=== PATIENT | female | born 1955 | race Caucasian/White ===

== ENCOUNTER 2019-11-23 06:44 | Outpatient (CLI) | payer MEDICARE, MEDICAID, SELFPAY ==
[2019-11-23 07:36] LABS: Basophils Absolute Auto 0.1 K/mm3 (0.0-0.1); Basophils Percent Auto 1.1 % (0.2-1.2); Eosinophils Absolute Auto 0.4 K/mm3 (0-0.3); Eosinophils Percent Auto 5.6 % (0-4.4); Hematocrit 39.3 % (37.0-47.0); Immature Granulocyte Absolute 0.01 K/mm3 (0.00-0.031); Immature Granulocyte Percent A 0.2 % (0-0.5); Lymphocytes Absolute Auto 1.78 K/mm3 (0.9-3.2); Lymphocytes Percent Auto 27.5 % (18.3-44.2); Mean Corpuscular HGB Conc 33.1 g/dl (32-36); Mean Corpuscular Volume 87.7 fl (80-100); Mean Platelet Volume 10.3 fl (7.4-10.4); Monocytes Absolute Auto 0.5 K/mm3 (0.1-0.6); Monocytes Percent Auto 8.3 % (2.6-8.5); Neutrophils Absolute Auto 3.7 K/mm3 (1.3-6.7); Neutrophils Percent Auto 57.3 % (45.5-73.1); Platelet Count Result 215 k/mm3 (150-375); Red Blood Count 4.48 M/mm3 (4.2-5.4); Red Cell Distribution Width 12.9 % (11.5-14.5); White Blood Count 6.5 K/mm3 (4.5-10.0)
[2019-11-23 07:47] LABS: Alanine Aminotransferase 14 U/L (4-35); Albumin Level 4.1 g/dL (3.5-5.1); Alkaline Phosphatase 56 U/L (38-126); Anion Gap 9.7 mmol/L (7-16); Aspartate Amino Transferase 19 U/L (14-36); Bilirubin,Total 0.5 mg/dL (0.2-1.3); Blood Urea Nitrogen 16 mg/dL (7-17); Carbon Dioxide 28 mmol/L (22-30); Chloride 104 mmol/L (98-107); Cholesterol 182 mg/dL (0-200); Estimated Glomerular Filt Rate > 60; Glucose 138 mg/dL (65-105); HDL Direct 55 mg/dL; Potassium 3.7 mmol/L (3.4-5.0); Sodium 138 mmol/L (137-145); Triglycerides 134 mg/dL (<150)
[2019-11-23 07:58] LABS: LDL Cholesterol Direct 90 mg/dL
[2019-11-23 08:35] LABS: Vitamin D 25 Hydroxy 56.6 ng/mL
[2019-11-23 08:36] LABS: Creatinine Urine 226.8 mg/dL
[2019-11-23 08:40] LABS: MALB Creatinine Ratio 8.2 mg/g (0-30); Microalbumin Urine Random 18.5 mg/L (0-16.7)
[2019-11-23 12:03] LABS: Hemoglobin A1C 6.6 % (<5.7)
[2019-11-23 13:43] LABS: Folic Acid > 20.0 ng/mL (2.76->20)
== END 2019-11-23 06:45 | disposition home or self-care (01) ==
PROVIDERS: PCP Internal Medicine; Visit Provider Internal Medicine
DX: R53.83 Other fatigue (principal); E55.9 Vitamin D deficiency, unspecified; E11.9 Type 2 diabetes mellitus without complications; I10 Essential (primary) hypertension
CPT/HCPCS: 36415; 80053; 80061; 82043; 82306; 82607; 82746; 83036; 84443; 85025

== ENCOUNTER 2020-09-23 09:01 | Outpatient (CLI) | payer MEDICARE, BC, SELFPAY ==
--- NOTE | ~2020-09-23 | MM_ITS ---
EXAMINATION: MM screening [facility] BI w magda HISTORY: Screening mammogram TECHNIQUE: Craniocaudal and mediolateral oblique 3-D tomosynthesis images were obtained and synthetic 2-D images were generated. CAD analysis was submitted and interpreted. COMPARISON: 03/12/2019, 02/27/2018, bilateral digital screening mammogram examinations BREAST PARENCHYMAL COMPOSITION: The breasts are almost entirely fatty. FINDINGS: Stable benign-appearing small circumscribed low-density opacity in the lower outer left carlos ast, not significantly changed since 03/12/2019. There is no evidence of suspicious mass, calcificati on, or architectural distortion to suggest malignancy in either breast. There has been no suspicious interval change. IMPRESSION: 1. No mammographic evidence of malignancy. 2. Recommend routine screening mammography in one year. BI-RADS Category 2: Benign finding(s). Reviewed, dictated and finalized at location A.
== END 2020-09-23 09:02 | disposition home or self-care (01) ==
PROVIDERS: PCP Internal Medicine; Visit Provider Obstetrics & Gynecology
DX: Z12.31 Encounter for screening mammogram for malignant neoplasm of breast (principal)
CPT/HCPCS: 77063; 77067

== ENCOUNTER 2020-10-13 08:53 | Outpatient (CLI) | payer MEDICARE, MEDICAID, SELFPAY | END 2020-10-13 08:54 | disposition home or self-care (01) | LOC: ANHAUDIO 08:54 | PROVIDERS: PCP Internal Medicine; Visit Provider Otolaryngology | DX: H72.92 Unspecified perforation of tympanic membrane, left ear (principal); H91.92 Unspecified hearing loss, left ear | CPT/HCPCS: 92557; 92567 ==

== ENCOUNTER 2021-04-27 06:42 | Outpatient (CLI) | payer MEDICARE, MEDICAID, SELFPAY ==
[2021-04-27 07:33] LABS: Alanine Aminotransferase 22 U/L (4-35); Albumin Level 4.3 g/dL (3.5-5.1); Alkaline Phosphatase 69 U/L (38-126); Anion Gap 7 mmol/L (8-16); Aspartate Amino Transferase 26 U/L (14-36); Bilirubin,Total 0.5 mg/dL (0.2-1.3); Blood Urea Nitrogen 21 mg/dL (7-17); Calcium 9.4 mg/dL (8.4-10.2); Carbon Dioxide 29 mmol/L (22-30); Chloride 105 mmol/L (98-107); Cholesterol 224 mg/dL (0-200); Estimated Glomerular Filt Rate > 60; Glucose 154 mg/dL (65-110); HDL Direct 70 mg/dL; Potassium 4.4 mmol/L (3.4-5.0); Sodium 141 mmol/L (137-145); Triglycerides 129 mg/dL (<150)
[2021-04-27 07:34] LABS: Hemoglobin A1C 7.4 % (<5.7)
[2021-04-27 07:44] LABS: LDL Cholesterol Direct 110 mg/dL
[2021-04-27 07:58] LABS: Basophils Absolute Auto 0.1 K/mm3 (0.0-0.1); Basophils Percent Auto 0.8 % (0.2-1.2); Eosinophils Absolute Auto 0.4 K/mm3 (0-0.3); Hematocrit 45.3 % (37.0-47.0); Hemoglobin 14.7 g/dL (12.0-15.0); Immature Granulocyte Absolute 0.03 K/mm3 (0.00-0.031); Immature Granulocyte Percent A 0.3 % (0-0.5); Lymphocytes Absolute Auto 1.79 K/mm3 (0.9-3.2); Lymphocytes Percent Auto 19.8 % (18.3-44.2); Mean Corpuscular HGB Conc 32.5 g/dl (32-36); Mean Corpuscular Hemoglobin 28.6 pg (26-34); Mean Corpuscular Volume 88.1 fl (80-100); Mean Platelet Volume 10.6 fl (7.4-10.4); Monocytes Absolute Auto 0.9 K/mm3 (0.1-0.6); Monocytes Percent Auto 9.4 % (2.6-8.5); Neutrophils Absolute Auto 5.9 K/mm3 (1.3-6.7); Neutrophils Percent Auto 65.7 % (45.5-73.1); Platelet Count Result 270 k/mm3 (150-375); Red Blood Count 5.14 M/mm3 (4.2-5.4); Red Cell Distribution Width 13.5 % (11.5-14.5)
[2021-04-27 08:03] LABS: MALB Creatinine Ratio 11.3 mg/g (0-30); Microalbumin Urine Random 22.9 mg/L (0-16.7)
[2021-04-27 08:56] LABS: Folic Acid > 20.0 ng/mL (2.76->20)
== END 2021-04-27 06:43 | disposition home or self-care (01) ==
PROVIDERS: PCP Internal Medicine; Visit Provider Internal Medicine
DX: E11.9 Type 2 diabetes mellitus without complications (principal); R53.83 Other fatigue; E55.9 Vitamin D deficiency, unspecified
CPT/HCPCS: 36415; 80053; 80061; 82043; 82306; 82607; 82746; 83036; 84443; 85025

== ENCOUNTER 2021-06-16 10:01 | Outpatient (CLI) | payer MEDICARE, MEDICAID, SELFPAY ==
--- NOTE | ~2021-06-16 | CT_ITS ---
EXAMINATION: CT sinus wo con DATE: 06/16/2021 10:18 INDICATION: Other specified disorders of nose and nasal sinuses TECHNIQUE: Computed tomography (CT) of the paranasal sinuses was performed without contrast. Iterativ e reconstruction technique was employed. Exam dose: 299.51 mGy-cm total exam DLP. COMPARISON: None FINDINGS: There is leftward deviation of the nasal septum. There is asymmetric soft tissue swelling of the right inferior nasal turbinate. There is moderately prominent mucoperiosteal thickening of both maxillary sinuses, left greater than right, with soft tissue thickening of the left maxillary ostium and infundibulum. The right ostiomeat al unit is patent. There is patchy soft tissue thickening of the ethmoid air cells bilaterally. The frontal sinuses are normally developed and aerated. The sphenoid sinuses are unremarkable. The right mastoid air cells are normally developed and aerated. The left mastoid air cells are less well developed, with extensive soft tissue opacification. IMPRESSION: Leftward deviation of nasal septum Asymmetric soft tissue swelling of right inferior nasal turbinate Moderately prominent mucoperiosteal thickening of both maxillary sinuses, left greater than right Soft tissue thickening partially occluding left maxillary ostium and infundibulum Patent right ostiomeatal unit Patchy soft tissue thickening of ethmoid air cells Asymmetric diminished development and prominent opacification of left mastoid air cells Reviewed, dictated and finalized at Location A. Reviewed, dictated and finalized at location B. D EFFECTS MANAGER IMPRESSION: Leftward deviation of nasal septum Asymmetric soft tissue swelling of right inferior nasal turbinate Moderately prominent mucoperiosteal thickening of both maxillary sinuses, left greater than right Soft tissue thickening partially occluding left maxillary ostium and infundibul um Patent right ostiomeatal unit Patchy soft tissue thickening of ethmoid air cells Asymmetric diminished development and prominent opacification of left mastoid a ir cells
== END 2021-06-16 10:02 | disposition home or self-care (01) ==
LOC: ANHIMG 10:05
PROVIDERS: PCP Physician Assistant; Visit Provider Otolaryngology
DX: J34.89 Other specified disorders of nose and nasal sinuses (principal); J32.9 Chronic sinusitis, unspecified; J34.2 Deviated nasal septum; J34.3 Hypertrophy of nasal turbinates; R09.81 Nasal congestion; R44.8 Other symptoms and signs involving general sensations and perceptions; R51.9 Headache, unspecified
CPT/HCPCS: 70486

== ENCOUNTER 2021-07-12 07:56 | Outpatient (CLI) | payer MEDICARE, MEDICAID, SELFPAY ==
--- NOTE | 2021-07-12 08:00 | ECG_ITS ---
Measurements Intervals [place] Rate: 63 P: 23 DC: 166 QRS: 15 QRSD: 101 T: 26 QT: 396 QTc: 408 Interpretive Statements SINUS RHYTHM NO PREVIOUS ECG AVAILABLE FOR COMPARISON Electronically Signed On 07-12-2021 13:03:22 CDT by Nay Choi M.D.
== END 2021-07-12 07:57 | disposition home or self-care (01) ==
LOC: ANHSURGERY 08:02
PROVIDERS: PCP Internal Medicine; Visit Provider Otolaryngology
DX: I10 Essential (primary) hypertension (principal); Z01.818 Encounter for other preprocedural examination
CPT/HCPCS: 93005

== ENCOUNTER 2021-07-14 00:50 | Day surgery (SDC) | payer MEDICARE, MEDICAID, SELFPAY ==
[2021-07-07 08:06] VITALS: BMI 39.0
--- NOTE | 2021-07-07 08:26 | PC.NURSE ---
Report to the Outpatient Waiting Room, entrance under the green pavilion located off [facility], at time _0845_ on date _07/14/21_. OR Time: __1045__. - You and your visitor will be asked a series of questions to screen for COVID 19 for your protection. - A mask is required within the hospital. One visitor will be allowed to accompany the patient into the hospital. Patients visitor will be instructed to remain with patient at all times or leave the building. We will allow the visitor to come back to the postoperative area when patient is ready. Preoperative COVID Testing Requirements: NONE Patients may have clear liquids (water, carbonated beverages, clear teas, apple juice) until 3 hours prior to surgery (0745 AM) with a maximum of 20 ounces. - No food from midnight until time of surgery Take the following medications with a SIP of water the morning of surgery: _NASAL SPRAY_ Medications to discontinue per DR. CANAS - _CONTACT OFFICE REGARDING ASPIRIN_ Medications to discontinue per ANESTHESIA - _ ALL VITAMINS AND SUPPLEMENTS 3 DAYS PRIOR TO SURGERY, Date to take last dose_07/10/21_ Please no make-up, nail macedonian, hairspray, perfume, deodorant, or body powder the day of surgery. No jewelry (including any body piercings) or valuables the day of surgery, leave them at home. Please take a shower or bath the night before, or the morning of, surgery with an antibacterial soap. Wear comfortable, loose fitting clothing. - Jewelry must be removed prior to entering the operating room. Rings and piercings that are not removed may be cut off. - The hospital will not accept responsibility for valuables. - Please leave all valuables, including medications, at home the day of surgery. If you are going home after surgery, a licensed truck driver flatbed must drive you home. - NO public transportation without another adult. - We recommend that an adult stay with you for 24 hours following discharge. - We also recommend that you do not drive, make important decision, drink alcoholic beverages, or take any drugs that were not prescribed by your health care provider for at least 24 hours after your discharge time. Follow any additional instructions given to you from your surgeon. Telephone instructions given to ___PT and asked if any additional questions and then verbalized understanding. Patient advised to call surgeon office or pre surgery nurse liaison [phone] if any additional questions.
--- NOTE | 2021-07-13 07:57 | PM.IMHP ---
H&P: HPI History of Present Illness Date/Time: 07/13/21 07:57 Chief Complaint: Septal deviation nasal obstruction nasal congestion turbinate hypertrophy chronic sinusitis postnasal drip Narrative: patient presents for planned surgical procedure no change in symptoms no change in history. Review of Systems Constitutional: Constitutional: Denies fatigue, Denies fever(s) and Denies lethargy Eyes: Eyes: Denies blurry vision and Denies change in vision ENT: Reports as per HPI Cardiovascular: Cardiovascular: Denies chest pain Respiratory: Respiratory: Denies cough Endocrine: Endocrine: Denies fatigue Hematologic/Lymphatic: Hematologic/Lymphatic: Denies easy bleeding, Denies easy bruising and Denies lymphadenopathy Allergic/Immunologic: Allergic/Immunologic: Denies seasonal rhinorrhea [facility] Past Medical History Medical History (Updated 06/12/21 @ 10:38 by Pablo Weeks MD) Arthritis BMI 39.0-39.9,adult Diabetes mellitus Last charted A1C 7.1 from october of 2018, Pt states her most recent A1c was 6.3 Hallux valgus (acquired), right foot Hammertoe of right foot Osteoarthritis of right knee Seasonal allergic rhinitis Synovial cyst of ankle and foot region Surgical History Surgical History H/O rotator cuff surgery (~03/08/16) Right History of arthroscopy of right knee meniscectomy 2011 History of hand surgery (~1988) Right History of hand surgery (~2007) Left History of hysterectomy (~1996) History of knee replacement (~08/06/13) Right Family History Family History Father Cerebrovascular accident Patient's father is Family history of arthritis Heart disease Hypertension Mother Family history of congestive heart failure Family history of obesity Family history of chronic obstructive pulmonary disease Family history of heart disease in male family member before age 55 Sibling Diabetes mellitus Hypertension Heart disease Other Arthritis Social History Social History Smoking status: Never smoker Second hand tobacco smoke exposure: No Alcohol intake: never Substance use: never Substance use type: does not use Additional living arrangements comments: LIVES WITH OLDER DAUGHTER Stephen MAGALLANES Gender identity (if verbalized by the patient): Female Spiritual care concerns: No Meds Home Medications and Allergies Home Medications Medication Instructions Recorded Confirmed Type ascorbate calcium (vitamin C) 500 500 mg PO QAM 03/12/19 07/07/21 History mg tablet aspirin 81 mg tablet,delayed 81 mg PO QAM 03/12/19 07/07/21 History release cholecalciferol (vitamin D3) 25 1,000 unit PO QAM 03/12/19 07/07/21 History mcg (1,000 unit) capsule cinnamon bark 500 mg capsule 1,000 mg PO QAM cap 03/12/19 07/07/21 History multivitamin with minerals 1 tablet PO QAM 03/12/19 07/07/21 History vitamin B comp and C no.3 15 mg-10 1 cap PO QAM 03/12/19 07/07/21 History mg-50 mg-5 mg-300 mg capsule albuterol sulfate 90 mcg/actuation 2 inhalation INHALATION Q4-6H PRN 04/10/19 07/07/21 Rx aerosol inhaler #18 gm azelastine 137 mcg (0.1 %) nasal 1 spray INTRANASAL Q12H #30 ml 08/02/20 07/07/21 Rx spray aerosol blood sugar diagnostic #175 each 03/08/21 06/12/21 Rx fluticasone propionate 50 See Rx Instructions .ROUTE 06/15/21 07/07/21 Rx mcg/actuation nasal .COMPLEX #16 g spray,suspension apple cider vinegar 1,200 mg PO QAM 07/07/21 07/07/21 History ascorbic acid-vitamin E-biotin 1 tablet PO QAM 07/07/21 07/07/21 History [Hair, Skin, Nails with Biotin] lisinopril 5 mg PO QAM 07/07/21 07/07/21 History magnesium 500 mg PO QAM 07/07/21 07/07/21 History omeprazole 20 mg PO QAM 07/07/21 07/07/21 History potassium 99 mg QAM 07/07/21 07/07/21 History zinc 50 mg PO QAM 07/07/21 07/07/21 History
[2021-07-14] VITALS (9 sets, daily range): BP systolic 96–135; BP diastolic 55–80; PULSE 68–87; RESP 10–18; TEMP 36.1–36.3; O2SAT 90–99
--- NOTE | 2021-07-14 07:20 | WPDHPUPDATE1 ---
History and Physical Update Update Date/Time: 07/14/21 07:20 History and Physical has been reviewed, including an updated exam of the patient. There are NO changes in the patient's condition. Risks, benefits, and alternatives have been discussed and questions answered. Patient agrees to proceed with procedure.
--- NOTE | 2021-07-14 07:21 | WPDHPUPDATE1 ---
History and Physical Update Update Date/Time: 07/14/21 07:21 History and Physical has been reviewed, including an updated exam of the patient. There are NO changes in the patient's condition. Risks, benefits, and alternatives have been discussed and questions answered. Patient agrees to proceed with procedure. Add inferior tubinate reduction with outfracture.
[2021-07-14] MEDS: LACTATED RINGERS 1,000 ML 30 ML IV CONT ×2 (08:26→12:03)
[2021-07-14] MEDS: ACETAMINOPHEN 500 MG TABLET 1000 MG PO (08:27)
--- NOTE | 2021-07-14 08:41 | WPDANESEPPF ---
Anes - Initial Pre Proc Eval Procedure: Operation Date: 07/14/21 09:30 Proposed Procedures p Image Guided Bilateral Maxillary Antrostomy, Total Ethmoidectomy, Frontal Sinusotomy, Sphenoidotomy, - Pablo Weeks MD s Endoscopic Septoplasty, Bilateral Inferior Turbinectomy with Outfracture - Pablo Weeks MD Date/Time: 07/14/21 08:41 Surgeon: Pablo Weeks MD Pre Op Diagnosis: chronic sinusitis Patient Data Age: 66 Gender: F Height: 1.6 m Weight: 102.2 kg Last Vital Signs Temp 36.3 C L 07/14/21 07:58 Pulse 77 07/14/21 07:58 Resp 18 07/14/21 07:58 BP 131/65 07/14/21 07:58 Pulse Ox 99 07/14/21 07:58 Allergies Allergy/AdvReac Type Severity Reaction Status Date / Time No Known Allergies Allergy Verified 07/07/21 07:58 Home Medications Medication Instructions Recorded Confirmed Type ascorbate calcium (vitamin C) 500 500 mg PO QAM 03/12/19 07/14/21 History mg tablet aspirin 81 mg tablet,delayed 81 mg PO QAM 03/12/19 07/14/21 History release cholecalciferol (vitamin D3) 25 1,000 unit PO QAM 03/12/19 07/14/21 History mcg (1,000 unit) capsule cinnamon bark 500 mg capsule 1,000 mg PO QAM cap 03/12/19 07/14/21 History multivitamin with minerals 1 tablet PO QAM 03/12/19 07/14/21 History vitamin B comp and C no.3 15 mg-10 1 cap PO QAM 03/12/19 07/14/21 History mg-50 mg-5 mg-300 mg capsule albuterol sulfate 90 mcg/actuation 2 inhalation INHALATION Q4-6H PRN 04/10/19 07/14/21 Rx aerosol inhaler #18 gm azelastine 137 mcg (0.1 %) nasal 1 spray INTRANASAL Q12H #30 ml 08/02/20 07/14/21 Rx spray aerosol blood sugar diagnostic #175 each 03/08/21 07/14/21 Rx fluticasone propionate 50 See Rx Instructions .ROUTE 06/15/21 07/14/21 Rx mcg/actuation nasal .COMPLEX #16 g spray,suspension apple cider vinegar 1,200 mg PO QAM 07/07/21 07/14/21 History ascorbic acid-vitamin E-biotin 1 tablet PO QAM 07/07/21 07/14/21 History [Hair, Skin, Nails with Biotin] lisinopril 5 mg PO QAM 07/07/21 07/14/21 History magnesium 500 mg PO QAM 07/07/21 07/14/21 History omeprazole 20 mg PO QAM 07/07/21 07/14/21 History potassium 99 mg QAM 07/07/21 07/14/21 History zinc 50 mg PO QAM 07/07/21 07/14/21 History Patient hx anesthesia problems: none Family hx anesthesia problems: none Results Review: All pre-operative results and documents have been reviewed as part of the pre-operative evaluation. [facility]LY [facility] Past Medical History Medical History Arthritis BMI 39.0-39.9,adult Diabetes mellitus Last charted A1C 7.1 from october of 2018, Pt states her most recent A1c was 6.3 Hallux valgus (acquired), right foot Hammertoe of right foot Osteoarthritis of right knee Seasonal allergic rhinitis Synovial cyst of ankle and foot region Surgical History Surgical History (Updated 07/14/21 @ 08:42 by Christopher Johnson MD) H/O rotator cuff surgery (~03/08/16) Right History of arthroscopy of right knee meniscectomy 2011 History of hand surgery (~1988) Right History of hand surgery (~2007) Left History of hysterectomy (~1996) History of knee replacement (~08/06/13) Right S/P gastric sleeve procedure Family History Family History Father Cerebrovascular accident Patient's father is Family history of arthritis Heart disease Hypertension Mother Family history of congestive heart failure Family history of obesity Family history of chronic obstructive pulmonary disease Family history of heart disease in male family member before age 55 Sibling Diabetes mellitus Hypertension Heart disease Other Arthritis Social History Social History Smoking status: Never smoker Second hand tobacco smoke exposure: No Alcohol intake: never Substance use: never Substance use type: does not use Living arrangements: with family Additiona
[2021-07-14] MEDS: ceFAZolin 2 GM/D5W 50 ML 2 GM/50 ML BAG IVPB (09:25)
[2021-07-14] MEDS: MUPIROCIN 2% OINT 22 GM TUBE 1 APPLIC EACH NARE (11:02)
--- NOTE | 2021-07-14 12:26 | SUR.PHASEI ---
Simple mask removed at 1225.
--- NOTE | 2021-07-14 12:45 | P.OP_ITS ---
Procedure Note - Detailed Date of Procedure 07/14/21 Pre-op Diagnosis chronic sinusitis, nasal obstruction, nasal congestion, septal deviation, turbinate hypertrophy Post-op Diagnosis Same Procedure Performed 1. Image guided endoscopic bilateral maxillary antrostomies 2. Image guided endoscopic bilateral total ethmoidectomies 3. Image guided endoscopic bilateral frontal sinusotomies performed guided bilateral endoscopic sphenoidotomies 5. Endoscopic assisted septoplasty 6. Turbinate reduction with outfracture Surgeon Pablo Weeks MD Floor Covering Printer None Anesthesia General Indications See above Findings Polypoid edema in all the affected sinuses that correlate with CT scan left septal deviation well straight following procedure turbinate hypertrophy well reduced no complications Description of Procedure Patient identified consent verified. Patient brought OR. Time-out performed. General anesthesia induced ET tube secured left. Image guidance initiated Afrin-soaked pledgets placed bilaterally patient prepped and draped performed procedure 2nd time-out performed. 0 degree endoscope utilized 15 cc total 1% lidocaine 100,000 parts epinephrine, 18 cc total, injected the bilateral nasal septum and heads of anterior inferior turbinates. Fifteen blade utilized under 0 degree endoscopic guidance left-sided septum [place] incision left flap elevated with 7 Urdu suction midline tear crust over with osteotome right flap elevated no perforations otherwise. Deviated septum removed with osteotome Oliverio Bennett forceps Rosalia forceps. Septum closed with 3 interrupted 5 0 fast gut sutures. Turbinates reduced 2 mm turbinate blade. Outfractured with Cos Cob elevator. Maxillary antrostomies performed bilaterally using double ball tip probe backbiter straight through cut micro debrider total ethmoidectomies performed with image guidance 0 degree endoscope, all the sinus surgery performed with 0 endoscope except frontal sinuses, [place] and microdebrider which was also image guided. Taking all the way to skull base medially to the septum to the orbit laterally. Sphenoidotomy performed with [place], 1 [place], 3 [place], microdebrider, image guidance. Polypoid edema in the aforementioned sinuses. No chanel polyps. Frontal sinuses again bilaterally performed with 70 degree scope and frontal sinus instruments including Cobra and Hosemann punch. Both cannulated no complications orbit skull base intact. The nasal passages were then copiously irrigated with warm sterile normal saline. Hemostasis was excellent. Total blood loss probably 100 cc per. Bilateral nasal passages suction of the choana. Obrien splints placed after being covered in mupirocin. Sutured anteriorly using mattressed 3-0 nylon suture. This marked end of the procedure. I performed all dictated portions. Blood loss 100 cc. Care the patient turned over to Anesthesiology. Of note no pack was placed in the bilateral middle meati I for hemostasis, healing, and to stent the turbinates Estimated Blood Loss 100 Drains No Packing Yes Pathology None sent Complications No immediate complications Condition Stable Disposition PACU
[2021-07-14] MEDS: oxyCODONE HCL (*CRX) 5 MG TAB IR PO (13:46)
--- NOTE | 2021-07-14 14:30 | SUR.PHASEII ---
this nurse called md motta about pt asprin. md motta said pt can decide if she wants to hold it or not. pt said he takes it on her own and it was not prescribed.
== END 2021-07-14 14:47 | disposition home or self-care (01) ==
PROVIDERS: PCP Internal Medicine; Visit Provider Otolaryngology
PROC: (CPT 31256; principal; 2021-07-14 09:30)
PROC: (CPT 30520; 2021-07-14 09:30)
DX: J32.9 Chronic sinusitis, unspecified (principal); J34.3 Hypertrophy of nasal turbinates; J34.2 Deviated nasal septum; R09.81 Nasal congestion; J34.89 Other specified disorders of nose and nasal sinuses; R51.9 Headache, unspecified; R09.82 Postnasal drip; E11.9 Type 2 diabetes mellitus without complications; Z79.51 Long term (current) use of inhaled steroids; E66.01 Morbid (severe) obesity due to excess calories; Z68.39 Body mass index [BMI] 39.0-39.9, adult
CPT/HCPCS: 31256; 31257; 31253; 30140; 61782; 30520; 93005; A9270; J0690; J2250; J2270; J2405; J2704; J7120

== ENCOUNTER 2021-10-27 06:56 | Outpatient (CLI) | payer MEDICARE, MEDICAID, SELFPAY ==
[2021-10-27 07:44] LABS: Basophils Absolute Auto 0.1 K/mm3 (0.0-0.1); Basophils Percent Auto 0.8 % (0.2-1.2); Eosinophils Absolute Auto 0.5 K/mm3 (0-0.3); Eosinophils Percent Auto 7.4 % (0-4.4); Hematocrit 43.1 % (37.0-47.0); Hemoglobin 13.8 g/dL (12.0-15.0); Immature Granulocyte Absolute 0.02 K/mm3 (0.00-0.031); Immature Granulocyte Percent A 0.3 % (0-0.5); Lymphocytes Absolute Auto 1.94 K/mm3 (0.9-3.2); Lymphocytes Percent Auto 27.5 % (18.3-44.2); Mean Corpuscular Volume 87.4 fl (80-100); Mean Platelet Volume 10.2 fl (7.4-10.4); Monocytes Absolute Auto 0.8 K/mm3 (0.1-0.6); Monocytes Percent Auto 11.3 % (2.6-8.5); Neutrophils Absolute Auto 3.7 K/mm3 (1.3-6.7); Neutrophils Percent Auto 52.7 % (45.5-73.1); Platelet Count Result 215 k/mm3 (150-375); Red Blood Count 4.93 M/mm3 (4.2-5.4); Red Cell Distribution Width 13.5 % (11.5-14.5); White Blood Count 7.1 K/mm3 (4.5-10.0)
[2021-10-27 08:02] LABS: Hemoglobin A1C 7.2 % (<5.7)
[2021-10-27 08:03] LABS: Alanine Aminotransferase 16 U/L (6-35); Albumin Level 4.1 g/dL (3.5-5.1); Alkaline Phosphatase 65 U/L (38-126); Anion Gap 5 mmol/L (8-16); Aspartate Amino Transferase 20 U/L (14-36); Bilirubin,Total 0.4 mg/dL (0.2-1.3); Blood Urea Nitrogen 15 mg/dL (7-17); Carbon Dioxide 31 mmol/L (22-30); Chloride 103 mmol/L (98-107); Cholesterol 215 mg/dL (0-200); Estimated Glomerular Filt Rate > 60; Glucose 154 mg/dL (65-110); HDL Direct 64 mg/dL; Potassium 4.2 mmol/L (3.4-5.0); Sodium 139 mmol/L (137-145); Triglycerides 100 mg/dL (<150)
[2021-10-27 08:14] LABS: LDL Cholesterol Direct 99 mg/dL
[2021-10-27 08:17] LABS: Creatinine Urine 83.3 mg/dL
[2021-10-27 08:19] LABS: Vitamin D 25 Hydroxy 63.7 ng/mL
[2021-10-27 08:22] LABS: MALB Creatinine Ratio 52.9 mg/g (0-30); Microalbumin Urine Random 44.1 mg/L (0-16.7)
[2021-10-27 09:23] LABS: Folic Acid > 20.0 ng/mL (2.76->20)
== END 2021-10-27 06:57 | disposition home or self-care (01) ==
LOC: ANHLAB 06:58
PROVIDERS: PCP Internal Medicine; Visit Provider Internal Medicine
DX: E11.9 Type 2 diabetes mellitus without complications (principal); E55.9 Vitamin D deficiency, unspecified; E78.00 Pure hypercholesterolemia, unspecified; R53.83 Other fatigue
CPT/HCPCS: 36415; 80053; 80061; 82043; 82306; 82607; 82746; 83036; 84443; 85025

== ENCOUNTER 2022-01-25 11:56 | Outpatient (CLI) | payer MEDICARE, MEDICAID, SELFPAY ==
--- NOTE | ~2022-01-25 | XR_ITS ---
XR chest 2V 01/25/2022 12:14 Indication: Cough and wheezing Procedure: PA and lateral views of the chest Comparison: 03/14/2015 Findings: Left lower lobe airspace disease. Small left pleural effusion. Borderline heart size. Mild bilateral perihilar interstitial prominence with peribronchial thickening. Impression: 1: Left lower lobe airspace disease, suspicious for pneumonia. 2: Small left pleural effusion. 3: Perihilar interstitial prominence with peribronchial thickening, suspicious for bronchiolitis. Reviewed, dictated and finalized at location B. Impression: 1: Left lower lobe airspace disease, suspicious for pneumonia. 2: Small left pleural effusion. 3: Perihilar interstitial prominence with peribronchial thickening, suspicious for bronchiolitis.
== END 2022-01-25 11:57 | disposition home or self-care (01) ==
PROVIDERS: PCP Internal Medicine; Visit Provider Physician Assistant
DX: R05.9 Cough, unspecified (principal); J90 Pleural effusion, not elsewhere classified
CPT/HCPCS: 71046

== ENCOUNTER 2022-06-09 08:09 | Outpatient (CLI) | payer MEDICARE, MEDICAID, SELFPAY ==
[2022-06-09 08:39] LABS: Basophils Absolute Auto 0.1 K/mm3 (0.0-0.1); Basophils Percent Auto 0.6 % (0.2-1.2); Eosinophils Absolute Auto 0.2 K/mm3 (0-0.3); Eosinophils Percent Auto 2.9 % (0-4.4); Hematocrit 45.4 % (37.0-47.0); Hemoglobin 14.5 g/dL (12.0-15.0); Immature Granulocyte Absolute 0.03 K/mm3 (0.00-0.031); Immature Granulocyte Percent A 0.4 % (0-0.5); Lymphocytes Absolute Auto 2.01 K/mm3 (0.9-3.2); Lymphocytes Percent Auto 23.9 % (18.3-44.2); Mean Corpuscular HGB Conc 31.9 g/dl (32-36); Mean Corpuscular Hemoglobin 28.2 pg (26-34); Mean Corpuscular Volume 88.3 fl (80-100); Monocytes Absolute Auto 0.9 K/mm3 (0.1-0.6); Monocytes Percent Auto 10.2 % (2.6-8.5); Neutrophils Absolute Auto 5.2 K/mm3 (1.3-6.7); Platelet Count Result 257 k/mm3 (150-375); Red Blood Count 5.14 M/mm3 (4.2-5.4); Red Cell Distribution Width 14.4 % (11.5-14.5); White Blood Count 8.4 K/mm3 (4.5-10.0)
[2022-06-09 09:22] LABS: Creatinine Urine 150.4 mg/dL
[2022-06-09 09:25] LABS: Hemoglobin A1C 7.7 % (<5.7)
[2022-06-09 09:44] LABS: MALB Creatinine Ratio 149.5 mg/g (0-30); Microalbumin Urine Random 224.9 mg/L (0-16.7)
[2022-06-09 09:53] LABS: Vitamin D 25 Hydroxy 51.3 ng/mL
[2022-06-09 10:26] LABS: Alanine Aminotransferase 33 U/L (6-35); Albumin Level 4.2 g/dL (3.5-5.1); Alkaline Phosphatase 72 U/L (38-126); Anion Gap 6 mmol/L (8-16); Aspartate Amino Transferase 29 U/L (14-36); Bilirubin,Total 0.8 mg/dL (0.2-1.3); Blood Urea Nitrogen 18 mg/dL (7-17); Calcium 8.7 mg/dL (8.4-10.2); Carbon Dioxide 30 mmol/L (22-30); Chloride 106 mmol/L (98-107); Cholesterol 179 mg/dL (0-200); Estimated Glomerular Filt Rate > 60; Glucose 161 mg/dL (65-110); HDL Direct 57 mg/dL; Potassium 4.4 mmol/L (3.4-5.0); Sodium 142 mmol/L (137-145); Triglycerides 134 mg/dL (<150)
[2022-06-09 10:43] LABS: LDL Cholesterol Direct 78 mg/dL
[2022-06-09 11:35] LABS: Folic Acid > 20.0 ng/mL (2.76->20)
== END 2022-06-09 08:10 | disposition home or self-care (01) ==
PROVIDERS: PCP Internal Medicine; Visit Provider Internal Medicine
DX: R53.83 Other fatigue (principal); E78.00 Pure hypercholesterolemia, unspecified; E55.9 Vitamin D deficiency, unspecified; E11.9 Type 2 diabetes mellitus without complications
CPT/HCPCS: 36415; 80053; 80061; 82043; 82306; 82607; 82746; 83036; 84443; 85025

== ENCOUNTER 2022-08-13 15:15 | Inpatient (IN) | payer MEDICARE, MEDICAID, SELFPAY ==
[2022-08-13] VITALS (25 sets, daily range): BP systolic 104–133; BP diastolic 42–78; PULSE 82–160; RESP 16–30; TEMP 37.2; O2SAT 93–99; BMI 42.3
--- NOTE | ~2022-08-13 | CT_ITS ---
EXAMINATION: CTA chest PE protocol DATE: 08/13/2022 16:49 INDICATION: Hemoptysis. Leg pain. TECHNIQUE: Computed tomography angiography (CTA) of the chest was performed with 100 mL Omnipaque-350 intravenous contrast timed to evaluate the pulmonary arteries. Coronal maximum intensity projection 3D-reconstructions were created by the technologist. Automated exposure control and iterative reconst ruction technique were employed. Exam dose: 755.72 mGy-cm total exam DLP. COMPARISON: 08/13/2022 portable AP chest FINDINGS: Cardiomegaly. No pericardial effusion. There is mild bilateral pleural effusion. There are patchy focal areas of infiltrate in the left upper lobe and lingula and more patchy consoli dating infiltrate in the left lower lobe, extending especially the posteromedial basilar left lower l obe. There is mild right dependent lower lobe atelectasis. Pulmonary granulomatous disease. There is old There is diagnostic contrast enhancement of the pulmonary arteries and no evidence of pulmonary embo lism. There are calcified hepatic and splenic granulomas consistent with old granulomatous disease There is dextroscoliosis and diffuse idiopathic skeletal hyperostosis of the thoracic spine. Small sliding hiatal hernia and suggestion of some thickening of the distal esophagus, possibly due t o esophagitis, neoplasm is not excluded. IMPRESSION: No evidence of pulmonary embolism Cardiomegaly, mild pleural effusions, suggesting congestive heart failure Patchy left upper and to greater extent left lower lobe infiltrates, suggesting pneumonia Reviewed, dictated and finalized at Location [facility]. Reviewed, dictated and finalized at location B.
--- NOTE | ~2022-08-13 | CT_ITS ---
EXAMINATION: CT BRAIN W/O DATE: 08/13/2022 21:21 INDICATION: Confusion TECHNIQUE: Computed tomography (CT) of the head was performed without intravenous contrast. The dose- length product was 605.33 mGy-cm. Automated exposure control and iterative reconstruction technique w ere employed. COMPARISON: No prior studies for comparison. FINDINGS: Normal brain parenchymal volume for age. Normal dent-white differentiation. No acute intrac ranial hemorrhage, infarction, mass or mass effect. No ventriculomegaly or midline shift. Midline sagittal images demonstrate a normal corpus callosum, c raniovertebral junction and sella turcica. Basilar cisterns are patent. There is mucosal thickening with air-fluid levels of the paranasal sinuses. Small left mastoid effusi on. No depressed skull fractures. IMPRESSION: 1. No acute intracranial abnormality. 2: Moderate sinusitis. Reviewed, dictated and finalized at location A.
--- NOTE | ~2022-08-13 | CT_ITS ---
EXAMINATION: CT hip RT wo con DATE: 08/13/2022 17:12 INDICATION: Nontraumatic right hip pain TECHNIQUE: High resolution computed tomography (CT) of the right hip was performed without intravenou s contrast. Additional sagittal and coronal reconstructions were performed. Automated exposure contro l and iterative reconstruction technique were employed. The dose-length product was 389.51 mGy-cm. COMPARISON: Right hip radiographs dated 08/13/2022 FINDINGS: Bone alignment is normal. No fracture. Right hip osteoarthritis with moderate severity posterior pred ominant nonuniform joint space narrowing and small marginal osteophytes about the acetabulum. No righ t hip joint effusion. There are enthesophytes about the greater trochanter which accounts for the irr egular cortical contour seen on prior radiographs. Excreted contrast resulting from the earlier contr ast-enhanced CT of the chest is seen in the visualized portion of the bladder and distal right ureter . IMPRESSION: 1. Moderate right hip osteoarthritis. No acute osseous abnormality. Reviewed, dictated and finalized at location A.
--- NOTE | ~2022-08-13 | XR_ITS ---
XR chest 1V portable 08/13/2022 16:14 Indication: Generalized body aches Procedure: AP portable chest Comparison: Comparison to multiple prior studies sequentially, with oldest reviewed study dated 12/2013. Findings: Cardiomegaly with mild pulmonary vascular congestion. No focal pneumonia, overt edema, effu shun or pneumothorax. No acute osseous abnormality. Impression: 1: Cardiomegaly with mild pulmonary vascular congestion. Reviewed, dictated and finalized at location A. Impression: 1: Cardiomegaly with mild pulmonary vascular congestion.
--- NOTE | ~2022-08-13 | US_ITS ---
EXAMINATION: US venous doppler [facility] DATE: 08/13/2022 17:08 INDICATION: Left lower limb pain TECHNIQUE: Grayscale ultrasound images without and with compression and Doppler ultrasound images of the left lower extremity veins were obtained. COMPARISON: None. FINDINGS: The visualized portions of left common femoral vein, profunda (deep) femoral vein, femoral vein, popl iteal vein, peroneal veins, posterior tibial veins, gastrocnemius vein and greater saphenous vein out flow are patent. IMPRESSION: 1. No deep venous thrombosis in the left lower limb. Reviewed, dictated and finalized at location A.
--- NOTE | ~2022-08-13 | XR_ITS ---
XR hip RT 2V w AP pelvis 08/13/2022 16:14 Indication: Right hip pain Procedure: AP pelvis and 2 views right hip Comparison: No prior studies Findings: There is moderate osteoarthritis of the hips. There is severe lumbar spondylosis with levos coliosis. There is possible cortical discontinuity at the greater trochanter, suspicious for nondispl aced fracture Impression: 1: Possible nondisplaced right femoral fracture just below the level of the greater trochanter latera lly. Reviewed, dictated and finalized at location A. Impression: 1: Possible nondisplaced right femoral fracture just below the level of the gre ater trochanter laterally.
--- NOTE | 2022-08-13 15:36 | ED.GENADULT ---
HPI - General Adult General Chief complaint: Unspecified Stated complaint: R. hip pain, Left leg pain, neck pain, cough blood Time Seen by Provider: 08/13/22 15:29 Source: patient History of Present Illness HPI narrative: Patient is 67 years old white female referred to our emergency room from her family physician office with multiple complaints. Patient is telling me that she been coughing for over 1 month, with a a lot of nasal congestion, postnasal discharge, had a negative COVID test 2 weeks ago. Did not check for COVID at the beginning of her coughing. Currently complaining of hoarseness of voice, headache, neck pain, upper back pain, sinus pressure and postnasal discharge, lately been coughing up sputum tinged with blood. Also complaining of right hip pain, no improvement with chiropractor, as started over 1 week ago scheduled to see orthopedic next week. Also noticed some pain behind her left knee and left lower leg 2 days ago. She denies any fever, chills, nausea, vomiting, chest pain or shortness of breath. Related Data Home Medications Medication Instructions Recorded Confirmed ascorbate calcium (vitamin C) 500 500 mg PO QAM 03/12/19 08/13/22 mg tablet aspirin 81 mg tablet,delayed 81 mg PO QAM 03/12/19 08/13/22 release (Adult Low Dose Aspirin) cholecalciferol (vitamin D3) 25 1,000 unit PO QAM 03/12/19 08/13/22 mcg (1,000 unit) capsule cinnamon bark 500 mg capsule 1,000 mg PO QAM 03/12/19 08/13/22 (Cinnamon) apple cider vinegar 600 mg capsule 1,200 mg PO QAM 07/07/21 08/13/22 ascorbic acid 7.5 mg-vit E 7.5 1 tablet PO QAM 07/07/21 08/13/22 unit-biotin 1,250 mcg chewable tablet (Hair,Skin,Nails with Biotin) zinc 50 mg tablet 50 mg PO QAM 07/07/21 08/13/22 vitamin B complex (B 1 tablet PO DAILY 12/20/21 08/13/22 Complex-Vitamin B12 tablet) Allergies Allergy/AdvReac Type Severity Reaction Status Date / Time No Known Allergies Allergy Verified 08/13/22 13:06 Review of Systems Review of Systems: All systems reviewed & are unremarkable except as noted in HPI and below PMFSH Past Medical History Medical History Arthritis BMI 39.0-39.9,adult Diabetes mellitus Last charted A1C 7.1 from october of 2018, Pt states her most recent A1c was 6.3 Hallux valgus (acquired), right foot Hammertoe of right foot Osteoarthritis of right knee Seasonal allergic rhinitis Synovial cyst of ankle and foot region Surgical History Surgical History H/O foot surgery H/O rotator cuff surgery (~03/08/16) Right times three History of arthroscopy of right knee meniscectomy 2012 History of hand surgery (~1988) Right History of hand surgery (~2007) Left History of hysterectomy (~1996) History of knee replacement (~08/06/13) Right S/P gastric sleeve procedure Family History Family History Father Cerebrovascular accident Patient's father is Family history of arthritis Heart disease Hypertension Mother Family history of congestive heart failure Family history of obesity Family history of chronic obstructive pulmonary disease Family history of heart disease in male family member before age 55 Sibling Diabetes mellitus Hypertension Heart disease Other Arthritis Social History Social History (Updated 08/13/22 @ 20:48 by Poonam Mcqueen NP) Smoking status: Never smoker Second hand tobacco smoke exposure: No Additional smoking assessment comments: 2 children . full code Alcohol intake: never Substance use: never Substance use type: does not use Lack of Transportation: No Lack of Food: Never True Current Housing: I Have Housing Concerned About Future Housing: No Difficulty Paying Gas/Electric Bills: YES Difficulty Paying for Meds: No Currently Unemployed: No Education: High School
--- NOTE | 2022-08-13 15:37 | ECG_ITS ---
Measurements Intervals [place] Rate: 82 P: 50 [place]: 154 QRS: 55 QRSD: 104 T: 48 QT: 384 QTc: 450 Interpretive Statements SINUS RHYTHM WITH OCCASIONAL SUPRAVENTRICULAR PREMATURE COMPLEXES OTHERWISE NORMAL ECG COMPARED TO ECG 07/12/2021 08:14:42 NO SIGNIFICANT CHANGES Electronically Signed On 08-14-2022 7:00:16 CDT by Mauri Gallagher M.D.
--- NOTE | 2022-08-13 15:56 | PC.NURSE ---
pt states had made an appt with dr. johnson today since she has a cough with blood tinged sputum, feels weak and has bilat leg pain. he evaluated pt in his office and referred pt here to get labs today.
[2022-08-13 16:03] LABS: Basophils Absolute Auto 0.1 K/mm3 (0.0-0.1); Basophils Percent Auto 0.4 % (0.2-1.2); Eosinophils Percent Auto 0.3 % (0-4.4); Hematocrit 38.7 % (37.0-47.0); Hemoglobin 12.6 g/dL (12.0-15.0); Immature Granulocyte Absolute 0.05 K/mm3 (0.00-0.031); Immature Granulocyte Percent A 0.4 % (0-0.5); Lymphocytes Absolute Auto 0.67 K/mm3 (0.9-3.2); Lymphocytes Percent Auto 5.2 % (18.3-44.2); Mean Corpuscular HGB Conc 32.6 g/dl (32-36); Mean Corpuscular Hemoglobin 28.7 pg (26-34); Mean Corpuscular Volume 88.2 fl (80-100); Mean Platelet Volume 10.1 fl (7.4-10.4); Monocytes Percent Auto 7.7 % (2.6-8.5); Neutrophils Absolute Auto 11.2 K/mm3 (1.3-6.7); Platelet Count Result 187 k/mm3 (150-375); Red Blood Count 4.39 M/mm3 (4.2-5.4); Red Cell Distribution Width 14.9 % (11.5-14.5)
--- NOTE | 2022-08-13 16:05 | PC.NURSE ---
shandra collins [phone]
[2022-08-13 16:13] LABS: INR 1.3; Partial Thromboplastin Time 32.3 SECONDS (22.3-36.8); Prothrombin Time 15.8 Seconds (11.1-14.7)
[2022-08-13 16:18] LABS: Alanine Aminotransferase 76 U/L (6-35); Alkaline Phosphatase 86 U/L (38-126); Anion Gap 5 mmol/L (8-16); Aspartate Amino Transferase 37 U/L (14-36); Bilirubin,Total 1.1 mg/dL (0.2-1.3); Blood Urea Nitrogen 16 mg/dL (7-17); CRP 6.5 mg/dL (<1.0); Calcium 8.8 mg/dL (8.4-10.2); Carbon Dioxide 29 mmol/L (22-30); Chloride 105 mmol/L (98-107); Estimated CRCL calculation 86 ml/min; Estimated Glomerular Filt Rate > 60; Glucose 176 mg/dL (65-110); Potassium 3.8 mmol/L (3.4-5.0); Sodium 139 mmol/L (137-145)
[2022-08-13 16:26] LABS: Erythrocyte Sedimentation Rate 17 mm/hr (0-20)
[2022-08-13 16:27] LABS: Troponin I < 0.012 ng/mL (0.000-0.034)
[2022-08-13 16:33] LABS: Alveolar/Arterial O2 Gradient 35.7 mmHg; Base Excess ABG -0.9 mEq/l (+/-2.0); Device ROOM AIR; Fractional Inspired Oxygen 21 %; HCO3 ABG 21.3 mEq/l (22.0-26.0); Oxygen Content ABG 17.3 %vol (16.0-22.0); Oxygen Saturation ABG 96.8 % (95.0-100.0); Oxyhemoglobin 94.6 % THb (90.0-100.0); PCO2 ABG 28.5 mmHg (35.0-45.0); PO2 ABG 79.9 mmHg (80.0-100.0); Site Drawn LEFT BRACHIAL; pH ABG 7.492 (7.350-7.450)
[2022-08-13 16:58] LABS: Influenza A QL RT-PCR Negative (Negative); Influenza B QL RT-PCR Negative (Negative); RSV RNA, RT-PCR Negative (Negative); SARS-CoV-2 RNA PCR Negative
--- NOTE | 2022-08-13 20:44 | PM.IMHP ---
H&P: HPI History of Present Illness Date/Time: 08/13/22 20:44 Chief Complaint: Right hip pain, left leg pain, neck pain, and coughing up blood. Narrative: This is a 67-year-old female patient who has no known history of congestive heart failure. The patient came to the emergency room with multiple complaints. The patient has been having right hip pain and has been seeing her chiropractor. He recommended that she see the orthopedic doctor. She has an appointment to see the orthopedic doctor but has as of yet. The patient also has been coughing over 1 month and having nasal congestion. She also has postnasal drainage. She had a negative COVID test 2 weeks ago. Patient is complaining of having headache left neck pain upper back pain and sinus pressure. She is coughing up sputum tinged with blood. She stated she just does not feel like herself she is having difficulty processing her thoughts. She states that she has been under a lot of stress lately. The patient is also complaining of pain behind her left knee. Her white count was noted to be 13.0. Arterial blood gases pH 7.492, CO2 28.5. PO2 79.9. Bicarb 21.3. Patient is currently on room air. Her glucose is 176. BNP is 2170. A sees 37 ALT 76. C reactive protein 6.5. She was found to be negative for influenza A/B RSV and COVID. Head CT was read as no acute intracranial abnormality. No moderate sinusitis. Hip CT was read as moderate right hip osteoarthritis. No acute osseous abnormality. Venous Doppler no deep vein thrombosis in the left lower limb. Chest CTA was read as no evidence of pulmonary embolism. Cardiomegaly, mild pleural effusions, suggesting congestive heart failure. Patchy left upper to greater extent left lower lobe infiltrate suggesting pneumonia. The patient was given morphine, Zofran, a azithromycin, and Rocephin. While in the emergency room the patient went and AFib with RVR and was given a Cardizem push and then started on a Cardizem drip. The patient will be admitted to IMU as the inpatient on the date of service 08/13/2022. Review of Systems Review of Systems: All systems reviewed & are unremarkable except as noted in HPI and below Constitutional: Constitutional: Reports as per HPI and Reports no additional constitutional complaints Eyes: Eyes: Reports as per HPI and Reports no additional eye complaints ENT: Reports system reviewed and no additional complaints, except as documented and Reports Normal hearing present Cardiovascular: Cardiovascular: Reports no additional cardiovascular complaints Respiratory: Respiratory: Reports no additional respiratory complaints and Reports no additional respiratory complaints Gastrointestinal: Gastrointestinal: Reports as per HPI and Reports no additional gastrointestinal complaints Musculoskeletal: Musculoskeletal: Reports no additional musculoskeletal complaints Integumentary/Breasts: Skin/Breast: Reports system reviewed and no additional complaints, except as docu and Reports as per HPI Neurologic: Reports system reviewed and no additional complaints, except as documented, Reports as per HPI and Reports Normal hearing present Psychiatric: Psychiatric: Reports no additional psychiatric complaints and Reports as per HPI Endocrine: Endocrine: Reports no additional endocrine complaints Hematologic/Lymphatic: Hematologic/Lymphatic: Reports no additional hematologic/lymphatic complaints Allergic/Immunologic: Allergic/Immunologic: Reports no additional allergic/immunologic complaints [facility] Past Medical History Medical History (Updated 08/13/22 @ 23:23 by Poonam Mcqueen NP) Arthritis BMI 39.0-39.9,adult Diabetes mellitus Last charted A1C 7.1 from october of 2018, Pt states her most recent A1c was 6.3 Hallux valgus (acquired), right foot Hammertoe of right foot Osteoarthritis of right knee Seasonal allergic rhinitis Synovial cyst of ankle and foot region Surgical History Surgical History (Updated
[2022-08-13] MEDS: ONDANSETRON INJ 4 MG/2 ML VIAL IV PUSH (21:08)
[2022-08-13] MEDS: MORPHINE SULFATE (*CRX) 4 MG/ML INJ IV PUSH (21:09)
[2022-08-13 22:05] LABS: NT Pro B Type Natriuretic Pept 2170 pg/mL (19.9-100)
--- NOTE | 2022-08-13 22:10 | ECG_ITS ---
Measurements Intervals [place] Rate: 161 P: GA: 0 QRS: 52 QRSD: 94 T: 0 QT: 214 QTc: 350 Interpretive Statements ATRIAL FIBRILLATION WITH RAPID VENTRICULAR RESPONSE NONSPECIFIC ST & T-WAVE ABNORMALITY ABNORMAL RHYTHM ECG COMPARED TO ECG 08/13/2022 15:56:57 ATRIAL FIBRILLATION REPLACES SINUS RHYTHM Electronically Signed On 08-14-2022 7:08:55 CDT by Mauri Gallagher M.D.
[2022-08-13] MEDS: dilTIAZem HCl INJ 25 MG/5 ML VIAL IV PUSH (22:29)
[2022-08-13] MEDS: dilTIAZem 100 MG/100 ML 100 MG/100 ML BAG IV CONT (22:36)
[2022-08-13] MEDS: dilTIAZem 100 MG/100 ML 100 MG/100 ML BAG 10 MG IV CONT (23:11)
--- NOTE | 2022-08-13 23:30 | ADMGEN ---
This patient, Shavonne Ahumada, was admitted to Medical Room 243-01. Patient/family oriented to hospital policies and general routines including ID bracelet, bed and alarms, visiting hours, pain management, procedures, bathroom and other care routines, personal items, smoking policy, room service/diet, and visiting hours. Information on how to activate the Rapid Response Team has been discussed. Patient/Family are encouraged to report perceived risks to care and to ask questions if they do not understand what they are told or what they should do.
[2022-08-14] VITALS (28 sets, daily range): BP systolic 91–107; BP diastolic 46–72; PULSE 76–159; RESP 16–20; TEMP 36.3–37.1; O2SAT 92–98
--- NOTE | 2022-08-14 | ECHO_ITS ---
Patient Info Name: Shavonne Ahumada Age: 67 years : 1955 Gender: Female Ht: 63 in Wt: 220 lbs BSA: 2.16 m2 BP: 95 / 72 mmHg Heart Rhythm: Atrial Fibrillation, Tachycardia Exam Date: 08/14/2022 10:17 AM Exam Location: [facility] Patient Status: Outpatient Admit Date: 08/13/2022 Staff Ordering Physician: Poonam Mcqueen NP Breakfast Bar Attendant: Osorio Hameed RDCS, RT Attending Provider: Aby Cronin MD Referring Physician: Richar SPRINGER; Exam Type: CA echo doppler color flow Study Info Indications I48.1 - Persistent atrial fibrillation Complete two-dimensional, color flow and Doppler transthoracic echocardiogram is performed. Strain analysis performed. Summary 1. Complete two-dimensional, color flow and Doppler transthoracic echocardiogram is performed. 2. Left ventricular chamber dimension is normal. 3. Left ventricular systolic function is normal, estimated at 60-65%. 4. There is moderately increased left ventricular wall thickness. 5. Right ventricular chamber dimension is mildly enlarged. 6. Right ventricular systolic function is normal. 7. Left atrial chamber dimension is mildly enlarged. 8. Right atrial chamber dimension is mildly enlarged. 9. There is mild to moderate mitral valve regurgitation. 10. There is mild tricuspid valve regurgitation. 11. There is mild aortic atherosclerosis. Left Ventricle Left ventricular chamber dimension is normal. Left ventricular systolic function is normal, estimated at 60-65%. There is moderately increased left ventricular wall thickness. Global longitudinal strain is abnormal at -10 %. Right Ventricle Right ventricular chamber dimension is mildly enlarged. Right ventricular systolic function is normal. Left Atria Left atrial chamber dimension is mildly enlarged. Right Atria Right atrial chamber dimension is mildly enlarged. Atrial Septum Intact interatrial septum visualized by color flow imaging. Aortic Valve The aortic valve is probable trileaflet. There is mild aortic valve sclerosis. There is no aortic valve stenosis. There is no aortic valve regurgitation. Pulmonic Valve The pulmonic valve is not well visualized. Mitral Valve There is mild to moderate mitral valve regurgitation. Tricuspid Valve There is mild tricuspid valve regurgitation. Pericardium/Pleural There is no pericardial effusion. Inferior Vena Cava Dilated inferior vena cava with <50% collapse upon inspiration consistent with elevated right atrial pressure, 15 mmHg. Aorta The aortic root size at the sinus of Valsalva is normal. There is mild aortic atherosclerosis. Left Ventricular Outflow Tract Name Value Normal LVOT 2D LVOT Diameter 2.0 cm LVOT Doppler LVOT Peak Gradient 4 mmHg LVOT Mean Gradient 2 mmHg LVOT VTI 19 cm LVOT VTI/AV VTI Ratio 0.7 LVOT Stroke Volume 62 ml LVOT CO 8.8 l/min LVOT CI 4.1 l/min/m2 Mitral Valve
[2022-08-14] MEDS: dilTIAZem HCL 30 MG TABLET PO (01:46)
[2022-08-14] MEDS: LEVALBUTEROL NEB 1.25 MG/3 ML 0.63 MG INHALATION ×4 (02:10→21:08)
[2022-08-14] MEDS: FUROSEMIDE INJ 40 MG/4 ML VIAL IV PUSH (03:42)
--- NOTE | 2022-08-14 04:04 | PC.NURSE ---
Spoke with Dr. Cronin regarding HR continuing to go up to 160's, BNP elevated. New orders received to increase Cardizem to 10mg/hr and administer lasix 40 ivp x1.
[2022-08-14 04:46] LABS: Basophils Absolute Auto 0.1 K/mm3 (0.0-0.1); Basophils Percent Auto 0.3 % (0.2-1.2); Eosinophils Percent Auto 0.1 % (0-4.4); Hematocrit 37.3 % (37.0-47.0); Hemoglobin 12.2 g/dL (12.0-15.0); Immature Granulocyte Absolute 0.16 K/mm3 (0.00-0.031); Lymphocytes Absolute Auto 0.94 K/mm3 (0.9-3.2); Lymphocytes Percent Auto 5.9 % (18.3-44.2); Mean Corpuscular HGB Conc 32.7 g/dl (32-36); Mean Corpuscular Hemoglobin 28.8 pg (26-34); Mean Platelet Volume 10.6 fl (7.4-10.4); Monocytes Absolute Auto 1.6 K/mm3 (0.1-0.6); Monocytes Percent Auto 9.9 % (2.6-8.5); Neutrophils Absolute Auto 13.1 K/mm3 (1.3-6.7); Neutrophils Percent Auto 82.8 % (45.5-73.1); Platelet Count Result 191 k/mm3 (150-375); Red Blood Count 4.24 M/mm3 (4.2-5.4); White Blood Count 15.8 K/mm3 (4.5-10.0)
[2022-08-14 04:58] LABS: Lactic Acid Reflex 1.6 mmol/L (0.7-2.0)
[2022-08-14 05:04] LABS: Alanine Aminotransferase 58 U/L (6-35); Albumin Level 3.8 g/dL (3.5-5.1); Alkaline Phosphatase 85 U/L (38-126); Anion Gap 4 mmol/L (8-16); Aspartate Amino Transferase 27 U/L (14-36); Bilirubin,Total 1.3 mg/dL (0.2-1.3); Blood Urea Nitrogen 12 mg/dL (7-17); Calcium 8.6 mg/dL (8.4-10.2); Carbon Dioxide 30 mmol/L (22-30); Chloride 103 mmol/L (98-107); Estimated CRCL calculation 90 ml/min; Estimated Glomerular Filt Rate > 60; Glucose 186 mg/dL (65-110); Magnesium 1.6 mg/dL (1.6-2.3); Potassium 3.4 mmol/L (3.4-5.0); Sodium 137 mmol/L (137-145)
[2022-08-14 05:53] LABS: Hemoglobin A1C 7.6 % (<5.7)
[2022-08-14] MEDS: dilTIAZem 100 MG/100 ML 100 MG/100 ML BAG 15 MG IV CONT (06:27)
[2022-08-14] MEDS: IPRATROPIUM BR 0.02% INH SOLN 0.5 MG/2.5 ML VIAL INHALATION ×3 (07:00→21:08)
[2022-08-14 08:22] LABS: Glucose Point of Care 177 mg/dl (65-105)
[2022-08-14] MEDS: ASPIRIN 81 MG ENTERIC TABLET 243 MG PO (09:44)
[2022-08-14] MEDS: ASCORBIC ACID 500 MG TABLET PO (09:44)
[2022-08-14] MEDS: CHOLECALCIFEROL 1,000 UNITS TABLET 1000 UNITS PO (09:44)
[2022-08-14] MEDS: PANTOPRAZOLE 40 MG TABLET PO (09:45)
[2022-08-14] MEDS: lisinopriL 5 MG TABLET PO (09:45)
[2022-08-14] MEDS: ENOXAPARIN 100 MG/ML SYRINGE SUB-Q (09:45)
[2022-08-14] MEDS: VITAMIN B COMPLEX CAPSULE 1 CAP PO (09:45)
[2022-08-14] MEDS: ZINC SULFATE 220 MG CAPSULE PO (09:46)
[2022-08-14] MEDS: POTASSIUM CHLORIDE 20 MEQ TABLET 40 MEQ PO (09:55)
--- NOTE | 2022-08-14 11:39 | PM.CNCAR ---
Assessment and Plan Assessment and plan (1) Atrial fibrillation with RVR: Code(s): I48.91 - Unspecified atrial fibrillation Status: Acute Assessment and Plan: New diagnosis for the patient. Remains in atrial fibrillation with RVR with HR in the 130s despite being on Diltiazem drip 15mg/hour. HR increases with activity. Given soft blood pressures at this time on Diltiazem drip, I do not think she will tolerate a higher dose of CCB or good dose of BB at this time. Will stop Diltiazem drip and start Amiodarone. Likely will not need long-term Amiodarone therapy. Echo pending. Switch TLOV to Eliquis. Will have patient follow up with us in clinic after hospital discharge. (2) Pneumonia: Code(s): J18.9 - Pneumonia, unspecified organism Status: Acute Assessment and Plan: Treatment as per Hospitalist. History of Present Illness History of Present Illness Consult date/time: 08/14/22 11:39 Requesting physician: Poonam Mcqueen NP Consult reason: atrial fibrillation Reason For Visit: pneumonia,chf Narrative: We are consulted for atrial fibrillation with RVR. This is a 67-year-old female with a history of hypertension, hyperlipidemia who presented with cough, nasal congestion, voice hoarseness, headache, back pain, right hip pain. While in the ER, patient went into atrial fibrillation with RVR and was given Cardizem bolus and started on drip. Initial EKG in the ER showed sinus rhythm with PACs. Repeat EKG later on showed AFib with RVR. Patient states this is a new diagnosis for her. Has not had cardiac issues in the past. Was started on TLOV. She is currently being treated for pneumonia as well. Remains in RVR despite Diltiazem drip. Review of Systems Review of Systems: All systems reviewed & are unremarkable except as noted in HPI and below (HPI) [facility] Past Medical History Medical History Arthritis BMI 39.0-39.9,adult Diabetes mellitus Last charted A1C 7.1 from october of 2018, Pt states her most recent A1c was 6.3 Hallux valgus (acquired), right foot Hammertoe of right foot Osteoarthritis of right knee Seasonal allergic rhinitis Synovial cyst of ankle and foot region Surgical History Surgical History H/O section H/O foot surgery H/O rotator cuff surgery (~03/08/16) Right times three History of arthroscopy of right knee meniscectomy 2012 History of hand surgery (~1988) Right carpal tunnel History of hand surgery (~2007) Left carpal tunnel History of hysterectomy (~1996) History of knee replacement (~08/06/13) Right S/P gastric sleeve procedure Family History Family History Father Cerebrovascular accident Patient's father is Family history of arthritis Heart disease Hypertension Mother Family history of congestive heart failure Family history of obesity Family history of chronic obstructive pulmonary disease Family history of heart disease in male family member before age 55 Sibling Diabetes mellitus Hypertension Heart disease Other Arthritis Social History Social History Social History: The patient is . She lives with her oldest daughter. She is retired from [employer]. She is a lifelong nonsmoker. Code status full code Smoking status: Never smoker Second hand tobacco smoke exposure: No Additional smoking assessment comments: 2 children . full code Alcohol intake: never Substance use: never Substance use type: does not use Lack of Transportation: No Lack of Food: Never True Current Housing: I Have Housing Concerned About Future Housing: No Difficulty Paying Gas/Electric Bills: YES Difficulty Paying for Meds: No Currently Unemployed: No Education: High School Dipl
[2022-08-14 12:11] LABS: Glucose Point of Care 186 mg/dl (65-105)
[2022-08-14] MEDS: AMIODARONE 150 MG/D5W 100 ML 150 MG/100 ML BAG 600 MG IV CONT (12:46)
[2022-08-14] MEDS: AMIODARONE 360 MG/D5W 200 ML 360 MG/200 ML BAG 33.33 MG IV CONT (12:46)
--- NOTE | 2022-08-14 13:27 | PM.IMPN ---
Progress Note: A&P Assessment and Plan (1) Atrial fibrillation with RVR: Code(s): I48.91 - Unspecified atrial fibrillation Status: Acute Assessment and Plan: Chief Complaint: Right hip pain, left leg pain, neck pain, and coughing up blood. HPI- Narrative: This is a 67-year-old female patient who has no known history of congestive heart failure.? The patient came to the emergency room with multiple complaints.? The patient has been having right hip pain and has been seeing her chiropractor.? He recommended that she see the orthopedic doctor.? She has an appointment to see the orthopedic doctor but has as of yet.? The patient also has been coughing over 1 month and having nasal congestion.? She also has postnasal drainage.? She had a negative COVID test 2 weeks ago.? Patient is complaining of having headache left neck pain upper back pain and sinus pressure.? She is coughing up sputum tinged with blood.? She stated she just does not feel like herself she is having difficulty processing her thoughts.? She states that she has been under a lot of stress lately.? The patient is also complaining of pain behind her left knee.? Her white count was noted to be 13.0.? Arterial blood gases pH 7.492, CO2 28.5.? PO2 79.9.? Bicarb 21.3.? Patient is currently on room air.? Her glucose is 176.? BNP is 2170.? A sees 37 ALT 76.? C reactive protein 6.5.? She was found to be negative for influenza A/B RSV and COVID.? Head CT was read as no acute intracranial abnormality.? No moderate sinusitis.? Hip CT was read as moderate right hip osteoarthritis.? No acute osseous abnormality.? Venous Doppler no deep vein thrombosis in the left lower limb.? Chest CTA was read as no evidence of pulmonary embolism.? Cardiomegaly, mild pleural effusions, suggesting congestive heart failure.? Patchy left upper to greater extent left lower lobe infiltrate suggesting pneumonia.? The patient was given morphine, Zofran, a azithromycin, and Rocephin.? While in the emergency room the patient went and AFib with RVR and was given a Cardizem push and then started on a Cardizem drip.? The patient will be admitted to IMU as the inpatient on the date of service 08/13/2022. 08/14/2022 interval history: 67-year-old female presented with complaint of cough hemoptysis wrist found to have atrial fibrillation with RVR patient was started on diltiazem drip from ER and her rate is trending down patient was seen by Cardiology and switch patient to amiodarone as patient's blood pressure is soft, started patient on Eliquis will continue to monitor, patient states there was some hemoptysis with her cough which is now resolved and patient not as short of breath, CTA of the chest did not show pulmonary emboli more concerning for pulmonary edema and pneumonia, patient is being diuresed and treated with azithromycin and ceftriaxone, patient states overall feeling much better compared to when she arrived, will continue to monitor and further recommendation to follow. (2) Pneumonia: Code(s): J18.9 - Pneumonia, unspecified organism Status: Acute Assessment and Plan: Most likely patient has a community-acquired pneumonia being treated with ceftriaxone and azithromycin will continue to monitor. (3) Hemoptysis: Code(s): R04.2 - Hemoptysis Status: Acute Assessment and Plan: CTA of the chest did not show any significant pathology and symptoms have improved will continue to monitor Subjective Date/time seen: 08/14/22 13:27 Chief Complaint: Right hip pain, left leg pain, neck pain, and coughing up blood. HPI- Narrative: This is a 67-year-old female patient who has no known history of congestive heart failure.? The patient came to the emergency room with multiple complaints.? The patient has been having right hip pain and has been seeing her chiropractor.? He recommended that she see the orthopedic doctor.? She has an appointment to see the orthopedic doctor but has as of yet.? The p
[2022-08-14 16:35] LABS: Glucose Point of Care 165 mg/dl (65-105)
[2022-08-14] MEDS: AMIODARONE 360 MG/D5W 200 ML 360 MG/200 ML BAG 16.67 MG IV CONT ×2 (17:20→21:40)
[2022-08-14 19:34] LABS: Glucose Point of Care 221 mg/dl (65-105)
[2022-08-14] MEDS: APIXABAN 5 MG TABLET PO (20:45)
[2022-08-14] MEDS: ACETAMINOPHEN 325 MG TABLET 650 MG PO (20:45)
[2022-08-15] VITALS (24 sets, daily range): BP systolic 104–125; BP diastolic 59–93; PULSE 90–140; RESP 16–98; TEMP 36.2–36.6; O2SAT 90–100
[2022-08-15] MEDS: LEVALBUTEROL NEB 1.25 MG/3 ML 0.63 MG INHALATION ×4 (02:20→20:21)
[2022-08-15] MEDS: IPRATROPIUM BR 0.02% INH SOLN 0.5 MG/2.5 ML VIAL INHALATION ×4 (02:20→20:21)
[2022-08-15 04:51] LABS: Hematocrit 37.3 % (37.0-47.0); Hemoglobin 12.1 g/dL (12.0-15.0); Mean Corpuscular HGB Conc 32.4 g/dl (32-36); Mean Corpuscular Hemoglobin 28.7 pg (26-34); Mean Corpuscular Volume 88.6 fl (80-100); Mean Platelet Volume 10.4 fl (7.4-10.4); Platelet Count Result 197 k/mm3 (150-375); Red Blood Count 4.21 M/mm3 (4.2-5.4); Red Cell Distribution Width 15.2 % (11.5-14.5); White Blood Count 10.5 K/mm3 (4.5-10.0)
[2022-08-15 05:04] LABS: Anion Gap 2 mmol/L (8-16); Blood Urea Nitrogen 16 mg/dL (7-17); Calcium 8.5 mg/dL (8.4-10.2); Carbon Dioxide 33 mmol/L (22-30); Chloride 102 mmol/L (98-107); Estimated CRCL calculation 90 ml/min; Estimated Glomerular Filt Rate > 60; Glucose 139 mg/dL (65-110); Magnesium 1.8 mg/dL (1.6-2.3); Potassium 3.3 mmol/L (3.4-5.0); Sodium 137 mmol/L (137-145)
[2022-08-15 07:43] LABS: Glucose Point of Care 160 mg/dl (65-105)
[2022-08-15] MEDS: PANTOPRAZOLE 40 MG TABLET PO (08:45)
[2022-08-15] MEDS: ACETAMINOPHEN 325 MG TABLET 650 MG PO ×2 (08:47→21:24)
[2022-08-15] MEDS: lisinopriL 5 MG TABLET PO (08:48)
[2022-08-15] MEDS: APIXABAN 5 MG TABLET PO ×2 (08:48→21:24)
[2022-08-15] MEDS: CHOLECALCIFEROL 1,000 UNITS TABLET 1000 UNITS PO (08:49)
[2022-08-15] MEDS: ASPIRIN 81 MG ENTERIC TABLET 243 MG PO (08:49)
[2022-08-15] MEDS: VITAMIN B COMPLEX CAPSULE 1 CAP PO (08:49)
[2022-08-15] MEDS: ASCORBIC ACID 500 MG TABLET PO (08:50)
[2022-08-15] MEDS: ZINC SULFATE 220 MG CAPSULE PO (08:50)
[2022-08-15] MEDS: AMIODARONE 360 MG/D5W 200 ML 360 MG/200 ML BAG 16.67 MG IV CONT ×2 (11:26→23:35)
[2022-08-15] MEDS: FLUTICASONE PROPIONATE 0.05% NA SPR 16 GM BTL (*BKC) 2 SPRAY NASAL (12:04)
[2022-08-15] MEDS: LORATADINE/PSEUDOEPHEDRINE (*CRX) 10/240 MG TABLET ER 24 HR 1 TAB PO (12:04)
[2022-08-15] MEDS: POTASSIUM CHLORIDE 20 MEQ TABLET 40 MEQ PO (12:04)
[2022-08-15 12:09] LABS: Glucose Point of Care 225 mg/dl (65-105)
--- NOTE | 2022-08-15 12:49 | PM.PNCARD ---
Progress Note: A&P Assessment and Plan (1) Atrial fibrillation with RVR: Code(s): I48.91 - Unspecified atrial fibrillation Status: Acute Assessment and Plan: New diagnosis for the patient. Remains in atrial fibrillation with RVR with HR in the 120s-130s at resting. Echocardiogram shows LVEF 60-65%, mild-moderate MR, mild TR Continue Amiodarone drip for now. If patient remains in RVR, will plan for WOLFGANG-guided DCCV 08/16. The procedure was discussed with the patient, including indications for procedure, procedure benefits, risks vs benefits, post procedure care, alternative management strategies. Patient agreeable to proceed. Patient to be NPO at midnight. Continue with Eliquis. (2) Pneumonia: Code(s): J18.9 - Pneumonia, unspecified organism Status: Acute Assessment and Plan: Management as per Hospitalist. Subjective Date/time seen: 08/15/22 12:49 Interval history: Reason for visit: Atrial fibrillation with RVR HPI: We are consulted for atrial fibrillation with RVR. This is a 67-year-old female with a history of hypertension, hyperlipidemia who presented with cough, nasal congestion, voice hoarseness, headache, back pain, right hip pain. While in the ER, patient went into atrial fibrillation with RVR and was given Cardizem bolus and started on drip. Initial EKG in the ER showed sinus rhythm with PACs. Repeat EKG later on showed AFib with RVR. Patient states this is a new diagnosis for her. Has not had cardiac issues in the past. Was started on TLOV. She is currently being treated for pneumonia as well. Remains in RVR despite Diltiazem drip. Date of service 08/15: Amiodarone drip started 08/14. Remains in RVR at resting. Feels okay though. Review of Systems Review of Systems: 8 point ROS obtained. Negative, unless stated in HPI. Exam Const: General: comfortable and no acute distress HENMT: Mouth: Yes moist mucous membranes Eyes: General: appearance normal, both eyes and all related structures Sclera: sclerae normal Neck: Neck: supple Resp: Effort & Inspection: normal respiratory effort Auscultation: clear to auscultation bilaterally Cardio: Rate: tachycardic Rhythm: abnormal rhythm GI: GI Palp: Yes Soft to palpation Skin: General skin exam: normal color Neuro: Speech: normal speech Psych: Mental Status: mental status grossly normal Affect: normal affect Objective Data Vital Signs Vital Signs: Vital Signs - 24 hr 08/14/22 13:00 08/14/22 13:10 08/14/22 16:00 Temperature Pulse Rate 107 H 106 H 111 H Respiratory Rate 16 16 Blood Pressure Pulse Oximetry Oxygen Delivery 08/14/22 16:00 08/14/22 17:20 08/14/22 19:38 Temperature 36.7 C 36.4 C Pulse Rate 115 H 127 H 124 H Respiratory Rate 16 20 Blood Pressure 93/46 L 91/61 L Pulse Oximetry 94 98 Oxygen Delivery 08/14/22 21:09 08/14/22 21:40 08/14/22 21:40 Temperature Pulse Rate 99 122 H 122 H Respiratory Rate 16 Blood Pressure Pulse Oximetry Oxygen Delivery 08/14/22 20:00 08/14/22 20:00 08/14/22 22:00 Temperature Pulse Rate 141 H 141 H 120 H Respiratory Rate 16 Blood Pressure Pulse Oximetry 98 Oxygen Delivery Room Air 08/14/22 23:18 08/15/22 02:35 08/14/22 21:20 Temperature 36.3 C L Pulse Rate 128 H 99 104 H Respiratory Rate 20 16 16 Blood Pressure 96/62 L Pulse Oximetry 98 Oxygen Delivery 08/15/22 04:00 08/15/22 00:00 08/15/22 00:00 Temperature 36.6 C Pulse Rate 128 H 123 H 123 H Respiratory Rate 20 20 Blood Pressure 110/59 L Pulse Oximetry 95 95 Oxygen Delivery Room Air 08/15/22 02:00 08/15/22 04:00 08/15/22 04:00 Temperature Pulse Rate 136 H 135 H 135 H Respiratory Rate 20 Blood Pressure Pulse Oximetry 95 Oxygen Delivery Room Air 08/15/22 05:15 08/15/22 07:49 08/15/22 08:50 Temperature 36.5 C Pulse Rate 122 H 122 H 110 H Respiratory Rate 98 H 20 Blood Pressure 125/93 H Pulse Ox
--- NOTE | 2022-08-15 13:18 | PM.IMPN ---
Progress Note: A&P Assessment and Plan (1) Atrial fibrillation with RVR: Code(s): I48.91 - Unspecified atrial fibrillation Status: Acute Assessment and Plan: Chief Complaint: Right hip pain, left leg pain, neck pain, and coughing up blood. HPI- Narrative: This is a 67-year-old female patient who has no known history of congestive heart failure.? The patient came to the emergency room with multiple complaints.? The patient has been having right hip pain and has been seeing her chiropractor.? He recommended that she see the orthopedic doctor.? She has an appointment to see the orthopedic doctor but has as of yet.? The patient also has been coughing over 1 month and having nasal congestion.? She also has postnasal drainage.? She had a negative COVID test 2 weeks ago.? Patient is complaining of having headache left neck pain upper back pain and sinus pressure.? She is coughing up sputum tinged with blood.? She stated she just does not feel like herself she is having difficulty processing her thoughts.? She states that she has been under a lot of stress lately.? The patient is also complaining of pain behind her left knee.? Her white count was noted to be 13.0.? Arterial blood gases pH 7.492, CO2 28.5.? PO2 79.9.? Bicarb 21.3.? Patient is currently on room air.? Her glucose is 176.? BNP is 2170.? A sees 37 ALT 76.? C reactive protein 6.5.? She was found to be negative for influenza A/B RSV and COVID.? Head CT was read as no acute intracranial abnormality.? No moderate sinusitis.? Hip CT was read as moderate right hip osteoarthritis.? No acute osseous abnormality.? Venous Doppler no deep vein thrombosis in the left lower limb.? Chest CTA was read as no evidence of pulmonary embolism.? Cardiomegaly, mild pleural effusions, suggesting congestive heart failure.? Patchy left upper to greater extent left lower lobe infiltrate suggesting pneumonia.? The patient was given morphine, Zofran, a azithromycin, and Rocephin.? While in the emergency room the patient went and AFib with RVR and was given a Cardizem push and then started on a Cardizem drip.? The patient will be admitted to IMU as the inpatient on the date of service 08/13/2022. 08/15/2022 interval history: 67-year-old female presented with complaint of cough hemoptysis wrist found to have atrial fibrillation with RVR patient was started on diltiazem drip from ER and her rate is trending down patient was seen by Cardiology and switch patient to amiodarone as patient's blood pressure is soft, started patient on Eliquis will continue to monitor, today patient rate is high and patient remains in A.fib, seen by cardioloigst, if patient does not convert to sinus tomorrow, patient will need cardioversion, patient states there was some hemoptysis with her cough which is now resolved and patient not as short of breath, CTA of the chest did not show pulmonary emboli more concerning for pulmonary edema and pneumonia, patient is being diuresed and treated with azithromycin and ceftriaxone, patient c/o right ear pain, canal mostly wax, patient is on abx, patient states overall feeling much better compared to when she arrived, will continue to monitor and further recommendation to follow. (2) Pneumonia: Code(s): J18.9 - Pneumonia, unspecified organism Status: Acute Assessment and Plan: Most likely patient has a community-acquired pneumonia being treated with ceftriaxone and azithromycin will continue to monitor. (3) Hemoptysis: Code(s): R04.2 - Hemoptysis Status: Acute Assessment and Plan: CTA of the chest did not show any significant pathology and symptoms have improved will continue to monitor Subjective Date/time seen: 08/15/22 13:18 Chief Complaint: Right hip pain, left leg pain, neck pain, and coughing up blood. HPI- Narrative: This is a 67-year-old female patient who has no known history of congestive heart failure.? The patient came to the emergency room with multip
[2022-08-15 16:33] LABS: Glucose Point of Care 215 mg/dl (65-105)
[2022-08-15] MEDS: INSULIN ASPART (*BKC) 100 UNITS/ML SUB-Q (17:36)
[2022-08-15 20:15] LABS: Glucose Point of Care 157 mg/dl (65-105)
[2022-08-16] VITALS (28 sets, daily range): BP systolic 102–137; BP diastolic 48–92; PULSE 63–135; RESP 12–22; TEMP 35.9–36.7; O2SAT 92–100
[2022-08-16 05:01] LABS: Hematocrit 36.6 % (37.0-47.0); Hemoglobin 11.7 g/dL (12.0-15.0); Mean Corpuscular Hemoglobin 28.3 pg (26-34); Mean Corpuscular Volume 88.4 fl (80-100); Mean Platelet Volume 10.5 fl (7.4-10.4); Platelet Count Result 221 k/mm3 (150-375); Red Blood Count 4.14 M/mm3 (4.2-5.4); Red Cell Distribution Width 14.9 % (11.5-14.5); White Blood Count 8.8 K/mm3 (4.5-10.0)
[2022-08-16 05:19] LABS: Anion Gap 4 mmol/L (8-16); Blood Urea Nitrogen 16 mg/dL (7-17); Calcium 8.6 mg/dL (8.4-10.2); Carbon Dioxide 32 mmol/L (22-30); Chloride 102 mmol/L (98-107); Estimated CRCL calculation 90 ml/min; Estimated Glomerular Filt Rate > 60; Glucose 134 mg/dL (65-110); Potassium 3.9 mmol/L (3.4-5.0); Sodium 138 mmol/L (137-145)
--- NOTE | 2022-08-16 08:11 | ECG_ITS ---
Measurements Intervals [place] Rate: 126 P: [place]: 0 QRS: 49 QRSD: 96 T: -16 QT: 308 QTc: 447 Interpretive Statements ATRIAL FIBRILLATION WITH RAPID VENTRICULAR RESPONSE WITH ABERRANT CONDUCTION OR VENTRICULAR PREMATURE COMPLEXES ABNORMAL QRS-T ANGLE [QRS-T AXIS DIFFERENCE > 60] COMPARED TO ECG 08/13/2022 22:08:36 NO SIGNIFICANT CHANGES Electronically Signed On 08-16-2022 18:30:12 CDT by Zena Banegas M.D.
[2022-08-16 08:30] LABS: Glucose Point of Care 177 mg/dl (65-105)
[2022-08-16] MEDS: SODIUM CHLORIDE 0.9% IV 1,000 ML 30 ML IV CONT (08:45)
--- NOTE | 2022-08-16 08:45 | ECG_ITS ---
Measurements Intervals [place] Rate: 71 P: 39 DC: 168 QRS: 21 QRSD: 99 T: 18 QT: 410 QTc: 446 Interpretive Statements SINUS RHYTHM COMPARED TO ECG 08/16/2022 08:16:48 SINUS RHYTHM NOW PRESENT Electronically Signed On 08-16-2022 18:31:03 CDT by Zena Banegas M.D.
--- NOTE | 2022-08-16 08:59 | PM.PNCARD ---
Progress Note: A&P Assessment and Plan (1) Atrial fibrillation with RVR: Code(s): I48.91 - Unspecified atrial fibrillation Status: Acute Assessment and Plan: New diagnosis for the patient. Remains in atrial fibrillation with RVR with HR in the 120s-130s at resting. Echocardiogram shows LVEF 60-65%, mild-moderate MR, mild TR Continue Amiodarone drip for now. Since patient remains in RVR, will plan for WOLFGANG-guided DCCV 08/16. The procedure was discussed with the patient, including indications for procedure, procedure benefits, risks vs benefits, post procedure care, alternative management strategies. Patient agreeable to proceed. Continue with Eliquis. (2) Pneumonia: Code(s): J18.9 - Pneumonia, unspecified organism Status: Acute Assessment and Plan: Management as per Hospitalist. Subjective Date/time seen: 08/16/22 08:59 Interval history: Reason for visit: Atrial fibrillation with RVR HPI: We are consulted for atrial fibrillation with RVR. This is a 67-year-old female with a history of hypertension, hyperlipidemia who presented with cough, nasal congestion, voice hoarseness, headache, back pain, right hip pain. While in the ER, patient went into atrial fibrillation with RVR and was given Cardizem bolus and started on drip. Initial EKG in the ER showed sinus rhythm with PACs. Repeat EKG later on showed AFib with RVR. Patient states this is a new diagnosis for her. Has not had cardiac issues in the past. Was started on TLOV. She is currently being treated for pneumonia as well. Remains in RVR despite Diltiazem drip. Date of service 08/15: Amiodarone drip started 08/14. Remains in RVR at resting. Feels okay though. Date of service 08/16: Still in AFIB with RVR this morning. Otherwise, no complaints. Review of Systems Review of Systems: 8 point ROS obtained. Negative, unless stated in HPI. Exam Const: General: comfortable and no acute distress HENMT: Mouth: Yes moist mucous membranes Eyes: General: appearance normal, both eyes and all related structures Sclera: sclerae normal Neck: Neck: supple Resp: Effort & Inspection: normal respiratory effort Auscultation: clear to auscultation bilaterally Cardio: Rate: tachycardic Rhythm: abnormal rhythm GI: GI Palp: Yes Soft to palpation Skin: General skin exam: normal color Neuro: Speech: normal speech Extrem: General: normal to inspection Psych: Mental Status: mental status grossly normal Affect: normal affect Objective Data Vital Signs Vital Signs: Vital Signs - 24 hr 08/15/22 09:00 08/15/22 10:00 08/15/22 12:00 Temperature 36.2 C L Pulse Rate 103 H 120 H 91 Respiratory Rate 20 18 Blood Pressure 124/81 Pulse Oximetry 90 Oxygen Delivery 08/15/22 12:00 08/15/22 12:00 08/15/22 14:20 Temperature Pulse Rate 133 H 135 H 104 H Respiratory Rate 20 18 Blood Pressure Pulse Oximetry 95 Oxygen Delivery Room Air 08/15/22 14:27 08/15/22 14:00 08/15/22 16:00 Temperature 36.3 C L Pulse Rate 105 H 132 H 126 H Respiratory Rate 18 18 Blood Pressure 119/72 Pulse Oximetry 97 Oxygen Delivery 08/15/22 16:00 08/15/22 16:00 08/15/22 18:00 Temperature Pulse Rate 113 H 135 H 140 H Respiratory Rate 20 Blood Pressure Pulse Oximetry 95 Oxygen Delivery Room Air 08/15/22 20:00 08/15/22 20:21 08/15/22 20:47 Temperature 36.4 C L Pulse Rate 126 H 101 H 103 H Respiratory Rate 18 18 18 Blood Pressure 112/79 Pulse Oximetry 91 Oxygen Delivery 08/15/22 20:00 08/15/22 20:00 08/15/22 21:43 Temperature Pulse Rate 90 90 120 H Respiratory Rate 18 Blood Pressure Pulse Oximetry 91 Oxygen Delivery Room Air 08/15/22 23:26 08/15/22 23:35 08/15/22 23:47 Temperature Pulse Rate 124 H 124 H 116 H Respiratory Rate Blood Pressure Pulse Oximetry Oxygen Delivery 08/15/22 23:47 08/15/22 23:53 08/16/22 01:55 Temperature 36.4 C Pulse Rat
[2022-08-16] MEDS: APIXABAN 5 MG TABLET PO ×2 (09:01→20:57)
[2022-08-16] MEDS: ASPIRIN 81 MG ENTERIC TABLET PO (09:01)
--- NOTE | 2022-08-16 09:01 | WPDMODSED ---
Moderate Sedation Note-Pt Data Patient Data Diagnosis: Atrial fibrillation with RVR Present Complaint: Atrial fibrillation with RVR Procedure to be performed/Plan: WOLFGANG guided DCCV Allergies Allergy/AdvReac Type Severity Reaction Status Date / Time No Known Allergies Allergy Verified 08/13/22 13:06 Home Medications Medication Instructions Recorded Confirmed Type ascorbate calcium (vitamin C) 500 500 mg PO QAM 03/12/19 08/14/22 History mg tablet aspirin 81 mg tablet,delayed 323 mg PO QAM 03/12/19 08/14/22 History release (Adult Low Dose Aspirin) cholecalciferol (vitamin D3) 25 1,000 unit PO QAM 03/12/19 08/14/22 History mcg (1,000 unit) capsule cinnamon bark 500 mg capsule 1,000 mg PO QAM 03/12/19 08/14/22 History (Cinnamon) apple cider vinegar 600 mg capsule 1,200 mg PO QAM 07/07/21 08/14/22 History ascorbic acid 7.5 mg-vit E 7.5 1 tablet PO QAM 07/07/21 08/14/22 History unit-biotin 1,250 mcg chewable tablet (Hair,Skin,Nails with Biotin) zinc 50 mg tablet 50 mg PO QAM 07/07/21 08/14/22 History albuterol sulfate 90 mcg/actuation 2 inh inhalation Q4-6H PRN 09/06/21 08/14/22 Rx aerosol inhaler (Ventolin HFA) shortness of breath or wheezing #18 grams vitamin B complex (B 1 tablet PO DAILY 12/20/21 08/14/22 History Complex-Vitamin B12 tablet) lisinopril 5 mg tablet 5 mg PO QAM #90 tabs 05/23/22 08/13/22 Rx omeprazole 20 mg capsule,delayed 20 mg PO QAM #90 caps 05/23/22 08/14/22 Rx release budesonide 0.25 mg/2 mL suspension See Rx Instructions .Route 06/25/22 08/14/22 Rx for nebulization .COMPLEX #180 mL blood sugar diagnostic (OneTouch 08/14/22 08/14/22 History Ultra Test strips) Current Medications: Active Medications Acetaminophen (Acetaminophen 325 Mg Tablet) 650 mg PO Q6H PRN PRN Reason: Mild Pain (1-3) or Fever Last Admin: 08/15/22 21:24 Dose: 650 mg Albuterol (Albuterol Sulfate (*Sp) Aerosol 1 Puff) 2 puff INHALATION Q4-6H PRN PRN Reason: shortness of breath or wheezing Apixaban (Apixaban 5 Mg Tablet) 5 mg PO Q12HR [facility] Last Admin: 08/15/22 21:24 Dose: 5 mg Ascorbic Acid (Ascorbic Acid 500 Mg Tablet) 500 mg PO QAM [facility] Last Admin: 08/15/22 08:50 Dose: 500 mg Aspirin (Aspirin 81 Mg Enteric Tablet) 81 mg PO QAM [facility] Dextrose (Dextrose 50% 25 Gm/50 Ml Syringe) 12.5 gm IV PUSH PRN PRN; Protocol PRN Reason: Hypoglycemia Fluticasone Propionate (Fluticasone Propionate 0.05% Na Spr 16 Gm Btl (*Bkc)) [facility] [place] Admin: 08/15/22 12:04 Dose: 2 spray Glucagon (Glucagon For Inj 1 Mg Vial) 1 mg IM PRN PRN; Protocol PRN Reason: Hypoglycemia Glucose (Glucose Oral Gel 15 Gm Of Glucse In 37.5 Gm Tube) 15 gm PO PRN PRN; Protocol PRN Reason: Hypoglycemia Ceftriaxone Sodium (Rocephin 1 Gm/Ns 50 Ml) 1 gm in 50 mls @ 100 mls/hr IVPB Q24H [facility] Last Infusion: 08/15/22 21:55 Dose: Infused Azithromycin (Zithromax) 500 mg in 250 mls @ 250 mls/hr IVPB Q24H [facility] Last Infusion: 08/15/22 22:25 Dose: Infused Dextrose (Dextrose 5% 1,000 Ml) 1,000 mls @ 100 mls/hr IVPB PRN PRN; Protocol PRN Reason: Hypoglycemia Amiodarone HCl/Dextrose (Nexterone 360 Mg/D5w 200 Ml) 360 mg in 200 mls @ 16.667 mls/hr IV CONT .Q12H [facility] Last Admin: 08/15/22 23:35 Dose: 0.5 mg/min, 16.67 mls/hr Sodium Chloride (Normal Saline Iv) 1,000 mls @ 30 mls/hr IV CONT .Q24H [facility] Insulin Aspart (Insulin Aspart (*Bkc) 100 Units/Ml) 2 - 5 units SUB-Q TIDWM [facility]; Protocol Last Admin: 08/15/22 17:36 Dose: 2 units Ipratropium [place] (Ipratropium Br 0.02% Inh Soln 0.5 Mg/2.5 Ml Vial) 0.5 mg INHALATION Q6HRT [facility] Last Admin: 08/16/22 08:14 Dose: Not Given Levalbuterol HCl (Levalbuterol Neb 1.25 Mg/3 Ml) 0.63 mg INHALATION Q6HRT [facility] Last Admin: 08/16/22 08:14 Dose: Not Given Lisinopril (Lisinopril 5 Mg Tablet) 5 mg PO QAM [facility] Last Admin: 08/15/22 08:48 Dose: 5 mg Loratadine/Pseudoephedrine Sulfate (Loratadine/Pseudoephedrine (*Crx) 10/240 Mg Tablet Er 24 Hr) 1 tab P
--- NOTE | 2022-08-16 09:02 | WPDTECDV ---
WOLFGANG with Cardioversion Date of procedure: 08/16/22 Procedure Type: Date of Procedure: 08/16/2022 Brief History Of Present Illness: Patient is a pleasant 67 year old female who is referred for WOLFGANG guided DCCV for atrial fibrillation with RVR. Procedure In Detail: After verbal and written informed consent was obtained, the patient risks, benefits, and alternatives explained in detail. The patient agreed to proceed with the plan of care as outlined above.?The patient was evaluated at bedside in the [facility] procedure room.?The posterior oropharynx, neck, and jaw angle all within normal limits on examination. Lungs were clear to auscultation. See pre-sedation note for further details. The patient was then placed in the appropriate 30 to 45 degree angle supine position at a slight left lateral decubitus position.?Patient was monitored throughout the study with telemetry, oxygen saturation, end-tidal CO2 monitoring, blood pressure, heart rate, and respirations.? The posterior hypopharynx was then locally anesthetized using repeated administration of Hurricaine spray as well as gargled viscous lidocaine.? After local anesthetic of the posterior hypopharynx was achieved and the oral bite block placed, moderate sedation was administered.? After confirmation of adequate moderate sedation, the transesophageal echocardiogram probe was advanced through the oral bite block into the posterior hypopharynx and into the esophagus easily and without complication.? Multiple, multiplanar echocardiographic images were obtained in multiple standard re- projections.? At the conclusion of the study, the transesophageal echocardiogram probe was removed easily and without complication.? The patient tolerated the procedure well without difficulty.? Patient was in atrial fibrillation with RVR throughout the study. After the WOLFGANG probe was removed, synchronized electrical cardioversion was performed with 1 shock at 250 joules with congregational of sinus rhythm. Moderate Sedation/Anesthesia administration: Patient reports no prior problems with sedation/anesthesia. Please see pre-sedation noted for physical examination documentation. As noted above, after adequate local anesthesia of the posterior hypopharynx was achieved, a total of?3mg intravenous Versed and a total of 75mcg intravenous Fentanyl in multiple divided doses was administered for moderate sedation.? Sedation start time was 09:13 and end time was 09:31 for a total intra-service/procedure face-face time of 18 minutes.? Sedation was administered by a qualified/certified observer Toya Denis RN under my supervision with intra-procedure [id number] observation and management throughout the entirety of the procedure.? There were no other issues or complications and patient tolerated the procedure well. See post-anesthesia documentation. FINDINGS: LEFT VENTRICLE: The left ventricular size is normal. The left ventricular systolic function appears to be mildly reduced, however, patient was in atrial fibrillation with RVR during the study with ventricular rates of 130bpm. RIGHT VENTRICLE:? Size and systolic function within normal limits. LEFT ATRIUM: Appears mildly enlarged. RIGHT ATRIUM: Normal size. Prominent Chiari network visualized in the right atrium. INTERATRIAL SEPTUM: ? Interatrial septum is anatomically normal. MITRAL VALVE: ? Mitral valve is anatomically normal with preserved leaflet excursion. AORTIC VALVE: The aortic valve was an anatomically normal 3 leaflet structure with normal leaflet excursion. TRICUSPID VALVE: The tricuspid valve is anatomically normal with normal leaflet excursion. PULMONIC VALVE: Pulmonic valve is grossly normal. LEFT ATRIAL APPENDAGE: Anatomically normal structure with prominent pectinate muscles without thrombus or vegetation identified. PERICARDIUM: The pericardium was anatomically normal without significant pericardial effusion. ? AORTA: Mid esophageal views of the aorta showed
[2022-08-16] MEDS: PANTOPRAZOLE 40 MG TABLET PO (11:25)
[2022-08-16] MEDS: FLUTICASONE PROPIONATE 0.05% NA SPR 16 GM BTL (*BKC) 2 SPRAY NASAL (11:25)
[2022-08-16] MEDS: ASCORBIC ACID 500 MG TABLET PO (11:25)
[2022-08-16] MEDS: VITAMIN B COMPLEX CAPSULE 1 CAP PO (11:25)
[2022-08-16] MEDS: lisinopriL 5 MG TABLET PO (11:25)
[2022-08-16] MEDS: CHOLECALCIFEROL 1,000 UNITS TABLET 1000 UNITS PO (11:25)
[2022-08-16] MEDS: ZINC SULFATE 220 MG CAPSULE PO (11:25)
[2022-08-16] MEDS: AMIODARONE HCL 200 MG TABLET PO (11:26)
[2022-08-16] MEDS: LORATADINE/PSEUDOEPHEDRINE (*CRX) 10/240 MG TABLET ER 24 HR 1 TAB PO (11:42)
[2022-08-16 12:10] LABS: Glucose Point of Care 126 mg/dl (65-105)
[2022-08-16] MEDS: LEVALBUTEROL NEB 1.25 MG/3 ML 0.63 MG INHALATION ×2 (14:16→20:20)
[2022-08-16] MEDS: IPRATROPIUM BR 0.02% INH SOLN 0.5 MG/2.5 ML VIAL INHALATION ×2 (14:16→20:21)
--- NOTE | 2022-08-16 16:52 | PM.IMPN ---
Progress Note: A&P Assessment and Plan (1) Atrial fibrillation with RVR: Code(s): I48.91 - Unspecified atrial fibrillation Status: Acute Assessment and Plan: Chief Complaint: Right hip pain, left leg pain, neck pain, and coughing up blood. HPI- Narrative: This is a 67-year-old female patient who has no known history of congestive heart failure.? The patient came to the emergency room with multiple complaints.? The patient has been having right hip pain and has been seeing her chiropractor.? He recommended that she see the orthopedic doctor.? She has an appointment to see the orthopedic doctor but has as of yet.? The patient also has been coughing over 1 month and having nasal congestion.? She also has postnasal drainage.? She had a negative COVID test 2 weeks ago.? Patient is complaining of having headache left neck pain upper back pain and sinus pressure.? She is coughing up sputum tinged with blood.? She stated she just does not feel like herself she is having difficulty processing her thoughts.? She states that she has been under a lot of stress lately.? The patient is also complaining of pain behind her left knee.? Her white count was noted to be 13.0.? Arterial blood gases pH 7.492, CO2 28.5.? PO2 79.9.? Bicarb 21.3.? Patient is currently on room air.? Her glucose is 176.? BNP is 2170.? A sees 37 ALT 76.? C reactive protein 6.5.? She was found to be negative for influenza A/B RSV and COVID.? Head CT was read as no acute intracranial abnormality.? No moderate sinusitis.? Hip CT was read as moderate right hip osteoarthritis.? No acute osseous abnormality.? Venous Doppler no deep vein thrombosis in the left lower limb.? Chest CTA was read as no evidence of pulmonary embolism.? Cardiomegaly, mild pleural effusions, suggesting congestive heart failure.? Patchy left upper to greater extent left lower lobe infiltrate suggesting pneumonia.? The patient was given morphine, Zofran, a azithromycin, and Rocephin.? While in the emergency room the patient went and AFib with RVR and was given a Cardizem push and then started on a Cardizem drip.? The patient will be admitted to IMU as the inpatient on the date of service 08/13/2022. 08/15/2022 interval history: 67-year-old female presented with complaint of cough hemoptysis wrist found to have atrial fibrillation with RVR patient was started on diltiazem drip from ER and her rate is trending down patient was seen by Cardiology and switch patient to amiodarone as patient's blood pressure is soft, started patient on Eliquis will continue to monitor, today patient rate is high and patient remains in A.fib, seen by cardioloigst, if patient does not convert to sinus tomorrow, patient will need cardioversion, patient states there was some hemoptysis with her cough which is now resolved and patient not as short of breath, CTA of the chest did not show pulmonary emboli more concerning for pulmonary edema and pneumonia, patient is being diuresed and treated with azithromycin and ceftriaxone, patient c/o right ear pain, canal mostly wax, patient is on abx, patient states overall feeling much better compared to when she arrived, will continue to monitor and further recommendation to follow. 08/17/2019 3:60 7-year-old female presented with complaint of cough hemoptysis found to have atrial fibrillation with rapid ventricular rate was started on diltiazem drip in the ER. Cardiology was consulted was switched to amiodarone as blood pressure was soft. Started on Eliquis. Patient remain on atrial fibrillation and hence plan for cardioversion. Status post cardioversion 08/16/2022. CTA of the chest did not show pulmonary emboli or concerning for pulmonary edema and pneumonia. Patient was diuresed and treated with azithromycin and ceftriaxone. Feeling overall better. Remains in sinus rhythm. (2) Pneumonia: Code(s): J18.9 - Pneumonia, unspecified organism Status: Acute Assessment and Plan: Most likely patient
[2022-08-16] MEDS: INSULIN ASPART (*BKC) 100 UNITS/ML SUB-Q (16:53)
[2022-08-16 17:07] LABS: Glucose Point of Care 208 mg/dl (65-105)
[2022-08-16 20:27] LABS: Glucose Point of Care 112 mg/dl (65-105)
[2022-08-16] MEDS: ACETAMINOPHEN 325 MG TABLET 650 MG PO (20:57)
[2022-08-17] VITALS (12 sets, daily range): BP systolic 107–131; BP diastolic 62–75; PULSE 64–83; RESP 16–20; TEMP 35.8–36.4; O2SAT 93–100
[2022-08-17] MEDS: IPRATROPIUM BR 0.02% INH SOLN 0.5 MG/2.5 ML VIAL INHALATION ×2 (02:38→08:19)
[2022-08-17] MEDS: LEVALBUTEROL NEB 1.25 MG/3 ML 0.63 MG INHALATION ×2 (02:38→08:19)
[2022-08-17 05:40] LABS: Hematocrit 33.8 % (37.0-47.0); Hemoglobin 10.9 g/dL (12.0-15.0); Mean Corpuscular HGB Conc 32.2 g/dl (32-36); Mean Corpuscular Hemoglobin 29.3 pg (26-34); Mean Corpuscular Volume 90.9 fl (80-100); Mean Platelet Volume 10.7 fl (7.4-10.4); Platelet Count Result 214 k/mm3 (150-375); Red Blood Count 3.72 M/mm3 (4.2-5.4); Red Cell Distribution Width 14.8 % (11.5-14.5); White Blood Count 6.1 K/mm3 (4.5-10.0)
[2022-08-17 05:52] LABS: Anion Gap 5 mmol/L (8-16); Blood Urea Nitrogen 11 mg/dL (7-17); Calcium 8.9 mg/dL (8.4-10.2); Carbon Dioxide 32 mmol/L (22-30); Chloride 102 mmol/L (98-107); Estimated CRCL calculation 106 ml/min; Estimated Glomerular Filt Rate > 60; Glucose 126 mg/dL (65-110); Magnesium 1.9 mg/dL (1.6-2.3); Potassium 3.7 mmol/L (3.4-5.0); Sodium 139 mmol/L (137-145)
[2022-08-17] MEDS: ACETAMINOPHEN 325 MG TABLET 650 MG PO (07:41)
[2022-08-17] MEDS: AMIODARONE HCL 200 MG TABLET PO (07:59)
[2022-08-17] MEDS: ASPIRIN 81 MG ENTERIC TABLET PO (08:00)
[2022-08-17] MEDS: ASCORBIC ACID 500 MG TABLET PO (08:00)
[2022-08-17] MEDS: FLUTICASONE PROPIONATE 0.05% NA SPR 16 GM BTL (*BKC) 2 SPRAY NASAL (08:00)
[2022-08-17] MEDS: CHOLECALCIFEROL 1,000 UNITS TABLET 1000 UNITS PO (08:00)
[2022-08-17] MEDS: APIXABAN 5 MG TABLET PO (08:00)
[2022-08-17] MEDS: VITAMIN B COMPLEX CAPSULE 1 CAP PO (08:01)
[2022-08-17] MEDS: lisinopriL 5 MG TABLET PO (08:01)
[2022-08-17] MEDS: ZINC SULFATE 220 MG CAPSULE PO (08:01)
[2022-08-17] MEDS: LORATADINE/PSEUDOEPHEDRINE (*CRX) 10/240 MG TABLET ER 24 HR 1 TAB PO (08:08)
[2022-08-17] MEDS: PANTOPRAZOLE 40 MG TABLET PO (08:08)
[2022-08-17 08:26] LABS: Glucose Point of Care 119 mg/dl (65-105)
[2022-08-17 12:11] LABS: Glucose Point of Care 114 mg/dl (65-105)
--- NOTE | 2022-08-17 12:54 | PM.DS ---
DS: Admitting Diagnosis Discharge Date 08/17/2022 Admitting Diagnosis AFib with RVR DS: Discharge Diagnosis Discharge Diagnosis (1) Atrial fibrillation with RVR: Code(s): I48.91 - Unspecified atrial fibrillation Status: Acute (2) Pneumonia: Code(s): J18.9 - Pneumonia, unspecified organism Status: Acute (3) Hemoptysis: Code(s): R04.2 - Hemoptysis Status: Acute DS: Summary Hospital Course Hospital Course: This is a 67-year-old female patient who has no known history of congestive heart failure.? The patient came to the emergency room with multiple complaints.? The patient has been having right hip pain and has been seeing her chiropractor.? He recommended that she see the orthopedic doctor.? She has an appointment to see the orthopedic doctor but has as of yet.? The patient also has been coughing over 1 month and having nasal congestion.? She also has postnasal drainage.? She had a negative COVID test 2 weeks ago.? Patient is complaining of having headache left neck pain upper back pain and sinus pressure.? She is coughing up sputum tinged with blood.? She stated she just does not feel like herself she is having difficulty processing her thoughts.? She states that she has been under a lot of stress lately.? The patient is also complaining of pain behind her left knee.? Her white count was noted to be 13.0.? Arterial blood gases pH 7.492, CO2 28.5.? PO2 79.9.? Bicarb 21.3.? Patient is currently on room air.? Her glucose is 176.? BNP is 2170.? A sees 37 ALT 76.? C reactive protein 6.5.? She was found to be negative for influenza A/B RSV and COVID.? Head CT was read as no acute intracranial abnormality.? No moderate sinusitis.? Hip CT was read as moderate right hip osteoarthritis.? No acute osseous abnormality.? Venous Doppler no deep vein thrombosis in the left lower limb.? Chest CTA was read as no evidence of pulmonary embolism.? Cardiomegaly, mild pleural effusions, suggesting congestive heart failure.? Patchy left upper to greater extent left lower lobe infiltrate suggesting pneumonia.? The patient was given morphine, Zofran, a azithromycin, and Rocephin.? While in the emergency room the patient went and AFib with RVR and was given a Cardizem push and then started on a Cardizem drip.? The patient will be admitted to IMU as the inpatient on the date of service 08/13/2022. She underwent cardioversion on 08/16/2022 with successful conversion to normal sinus rhythm. She would be on amiodarone and Eliquis as recommended by the condominium association manager. He also treated for community-acquired pneumonia with ceftriaxone and azithromycin. She clinically improved with the treatment and will be switched to oral antibiotics at discharge. CTA performed did not show any PE. Echo performed showed EF of 60-65% [id number] mitral regurgitation mild tricuspid regurgitation. Time Spent with Patient Time attestation: Total time spent providing and/or coordinating discharge services: 45 minutes Exam Narrative: Patient is comfortable, NAD HEENT: eyes are clear and none icteric LUNGS: Equal air entry bilaterally clear to auscultation HEART: Regular rate and rhythm ABD: Distended soft nontender Lower extremities: Bilateral lower extremity edema 1+ SKIN: nonjaundiced Neuro: grossly intact. DS: Data Data Completed and Pending Completed studies during hospitalization: Exam Type: ? ? CA echo doppler color flow Study Info Indications ? ? I48.1 - Persistent atrial fibrillation Complete two-dimensional, color flow and Doppler transthoracic echocardiogram is performed. ? Strain analysis performed. Account #: ? ? [id number] Summary ? 1. Complete two-dimensional, color flow and Doppler transthoracic echocardiogram is performed. ? 2. Left ventricular chamber dimension is normal. ? 3. Left ventricular systolic function is normal, estimated at 60-65%. ? 4. There is moderately increased left ventricular wall thickness. ?
--- NOTE | 2022-08-17 13:27 | PCCCNOTE ---
On 08/17/22, the student, [Sasha Jane], provided care and completed [facility] documentation on this patient. I have reviewed the student's documentation and agree with the findings.
== END 2022-08-17 13:30 | disposition home or self-care (01) | DRG 308 ==
LOC: ANHED 15:40 → ANH2MED 21:51 → ANHIMU 08-14 07:39
PROVIDERS: Family Medicine; Internal Medicine; Nurse Practitioner; Admitting Provider Internal Medicine; Emergency Provider Emergency Medicine; PCP Internal Medicine; Visit Provider Internal Medicine
PROC: 5A2204Z Restoration of Cardiac Rhythm, Single (ICD-10-PCS; principal; 2022-08-16 08:30)
PROC: 5A2204Z Restoration of Cardiac Rhythm, Single (ICD-10-PCS; CPT 93312; 2022-08-16 08:30)
DX: I48.91 Unspecified atrial fibrillation (principal); J18.9 Pneumonia, unspecified organism; R04.2 Hemoptysis; Z20.822 Contact with and (suspected) exposure to COVID-19; M19.90 Unspecified osteoarthritis, unspecified site; I10 Essential (primary) hypertension; E78.00 Pure hypercholesterolemia, unspecified; R09.82 Postnasal drip; Z96.651 Presence of right artificial knee joint; Z79.82 Long term (current) use of aspirin; Z98.84 Bariatric surgery status; Z90.710 Acquired absence of both cervix and uterus
CPT/HCPCS: 36415; 36600; 70450; 71045; 71275; 73502; 73700; 80048; 80053; 82805; 82948; 83036; 83605; 83735; 83880; 84443; 84484; 85025; 85027; 85610; 85652; 85730; 86140; 87040; 87637; 92960; 93005; 93306; 93312; 93320; 93325; 93971; 94640; 96366; 96367; 96372; 96374; 96375; 96376; 99285; A9270; G0378; J0282; J0456; J0696; J1650; J1815; J1940; J2250; J2270; J2405; J3010; J7030; Q9967

== ENCOUNTER 2022-09-26 06:34 | Outpatient (CLI) | payer MEDICARE, MEDICAID, SELFPAY ==
[2022-09-26 07:04] LABS: Appearance Urine Turbid (Clear); Bacteria Urine 3+ /hpf; Bilirubin Urine Negative (Negative); Blood Urine 3+ (Negative); Budding Yeast Urine Present /hpf; Color Urine Dark Yellow (Yellow); Glucose Urine UA Negative (Negative); Ketones Urine Negative (Negative); Leukocyte Esterase Ur 2+ LEU/UL (Negative); Nitrate Urine Positive (Negative); Protein Urine 2+ mg/dL (Negative); RBC Urine >100 /hpf (0-2); Specific Grav Ur 1.022 (1.001-1.035); Squamous Epithelial Cell Urine Few /hpf (Few); Urobilinogen Urine 0.2 mg/dL (<2.0); WBC Urine >100 /hpf; pH Urine 5.5 (5.0-9.0)
[2022-09-26 07:17] LABS: Add Urine Microscopic? YES
== END 2022-09-26 06:35 | disposition home or self-care (01) ==
PROVIDERS: PCP Internal Medicine; Visit Provider Internal Medicine
DX: R30.0 Dysuria (principal)
CPT/HCPCS: 81001; 87086; 87088

== ENCOUNTER 2022-10-01 08:22 | Outpatient (CLI) | payer MEDICARE, MEDICAID, SELFPAY ==
--- NOTE | ~2022-10-01 | MM_ITS ---
EXAMINATION: MM screening [facility] BI w magda HISTORY: Screening TECHNIQUE: Craniocaudal and mediolateral oblique 3-D tomosynthesis images were obtained and synthetic 2-D images were generated. CAD analysis was submitted and interpreted. COMPARISON: Comparison to multiple prior studies sequentially, with oldest reviewed study dated 06/09. BREAST PARENCHYMAL COMPOSITION: Breast composition is almost entirely fatty FINDINGS: There is a benign partially calcified mass in the upper inner quadrant of the right breast, middle third There is no evidence of suspicious mass, calcification, or architectural distortion to suggest malignancy in either breast. There has been no suspicious interval change. IMPRESSION: 1. No mammographic evidence of malignancy. 2. Recommend routine screening mammography in one year. BI-RADS Category 2: Benign finding(s). Reviewed, dictated and finalized at location A.
== END 2022-10-01 08:23 | disposition home or self-care (01) ==
LOC: ANHIMG 08:25
PROVIDERS: PCP Internal Medicine; Visit Provider Obstetrics & Gynecology
DX: Z12.31 Encounter for screening mammogram for malignant neoplasm of breast (principal)
CPT/HCPCS: 77063; 77067

== ENCOUNTER 2022-10-04 09:46 | Outpatient (CLI) | payer MEDICARE, MEDICAID, SELFPAY ==
--- NOTE | ~2022-10-04 | US_ITS ---
US renal BI DATE: 10/04/2022 10:23 INDICATION: Hematuria TECHNIQUE: Real-time imaging of kidneys and urinary bladder COMPARISON: None FINDINGS: The right kidney measures approximately 12.9 cm length, the left kidney 11.1 cm. Multiple r ight renal cysts, the largest measuring up to 3.7 cm approximately. Bilateral ureteral jets are demonstrated. No filling defect of the urinary bladder is evident. IMPRESSION: Right renal cysts, measuring up to 3.7 cm No evidence of hydronephrosis of either kidney Given the history of hematuria, consider further evaluation with CT and/or MR imaging as clinically a ppropriate Reviewed, dictated and finalized at Location A. Reviewed, dictated and finalized at location L. IMPRESSION: Right renal cysts, measuring up to 3.7 cm No evidence of hydronephrosis of either kidney Given the history of hematuria, consider further evaluation with CT and/or MR i maging as clinically appropriate
== END 2022-10-04 09:47 | disposition home or self-care (01) ==
PROVIDERS: PCP Internal Medicine; Visit Provider Internal Medicine
DX: R31.9 Hematuria, unspecified (principal); N28.1 Cyst of kidney, acquired
CPT/HCPCS: 76775

== ENCOUNTER 2022-10-11 14:26 | Outpatient (CLI) | payer MEDICARE, MEDICAID, SELFPAY ==
--- NOTE | ~2022-10-11 | CT_ITS ---
EXAMINATION: CT abdomen pelvis wo/w con DATE: 10/11/2022 14:59 INDICATION: Cyst of the kidney, acquired TECHNIQUE: Computed tomography (CT) of the abdomen was performed without intravenous contrast. CT of the abdomen and pelvis was then performed with 100 mL of Omnipaque 350 intravenous contrast. The dose -length product (DLP) was 2055.47 mGy-cm. Automated exposure control and iterative reconstruction amber hnique were employed. COMPARISON: None FINDINGS: Minimal dependent atelectasis is present in the lung bases. The heart size is normal. There is a small sliding hiatal hernia. Surgical changes of the stomach are likely related to weight loss surgery. Punctate calcifications in otherwise normal appearing liver and spleen likely represent heal ed granulomatous disease. There is mild gallbladder distention which may be due to fasting state. The pancreas and adrenal glands are normal. There is a 9 mm stone in the left renal pelvis. Cysts of the kidneys measure up to 3.8 cm on the right. No suspicious renal or urothelial lesion identified. The appendix is normal. No pathologically enlarged abdominal or pelvic lymph nodes are identified. No davy e intraperitoneal gas or evidence of bowel obstruction. Colonic diverticulosis is present without mahad dence of diverticulitis. There is moderate lumbar spondylosis. IMPRESSION: 1. Blunted millimeters stone in the left renal pelvis. 2. Multiple cysts of the kidneys. Reviewed, dictated and finalized at location A.
[2022-10-11 14:53] LABS: Estimated Glomerular Filt Rate > 60
== END 2022-10-11 14:27 | disposition home or self-care (01) ==
LOC: ANHIMG 14:28
PROVIDERS: PCP Internal Medicine; Visit Provider Internal Medicine
DX: N28.1 Cyst of kidney, acquired (principal)
CPT/HCPCS: 74178; Q9967

== ENCOUNTER 2022-10-18 11:33 | Outpatient (CLI) | payer MEDICARE, MEDICAID, SELFPAY ==
--- NOTE | ~2022-10-18 | XR_ITS ---
Supine and upright views of the abdomen Clinical history: Renal stone Findings: Bowel gas pattern is nonspecific. No evidence for obstruction or free air. 8mm left renal s tone noted. There is levoscoliosis of the lumbar spine with diffuse degenerative spondylitic change. Impression: 8mm left renal stone. Reviewed, dictated and finalized at [facility]. Impression: 8mm left renal stone.
== END 2022-10-18 11:34 | disposition home or self-care (01) ==
LOC: ANHIMG 11:35
PROVIDERS: PCP Internal Medicine; Visit Provider Urology
DX: N20.0 Calculus of kidney (principal)
CPT/HCPCS: 74018

== ENCOUNTER 2022-10-21 13:05 | Inpatient (IN) | payer MEDICARE, MEDICAID, SELFPAY ==
[2022-10-21] VITALS (9 sets, daily range): BP systolic 106–147; BP diastolic 52–73; PULSE 81–93; RESP 11–25; TEMP 36.9–37.2; O2SAT 97–100
--- NOTE | ~2022-10-21 | CT_ITS ---
Non-contrast CT scan of the Abdomen and Pelvis Clinical indication: Left back pain Technique: 2.5 mm axial scans were obtained through the abdomen and pelvis without intravenous or or al contrast. Dose reduction technique was used on this scan by utilizing automated exposure control a nd iterative reconstruction technique. The dose-length product (DLP) was 1340.98 mGy-cm. COMPARISON: 10/11/2022 Findings: Images through the lung bases reveal no abnormalities. There is a 7 x 5 mm stone in the very proximal left ureter, with Hounsfield units of approximately 11 00. There is associated mild left hydronephrosis. Right renal cysts are present. No right renal or ri ght ureteral stone. No right hydronephrosis. Calcified splenic and hepatic granulomas are present. The pancreas, gallbladder, and adrenals appear normal. There is no aortic aneurysm. There is no evidence of bowel obstruction. Normal appendix. Images through the pelvis were performed. There is no evidence of ascites or lymphadenopathy. Urinary bladder unremarkable. Patient is post hysterectomy. No pelvic mass seen. Impression: Migration of 7 x 5 mm stone to the very proximal left ureter, with mild left hydronephrosis. Please s ee details above. Reviewed, dictated and finalized at location . Impression: Migration of 7 x 5 mm stone to the very proximal left ureter, with mild left hy dronephrosis. Please see details above.
--- NOTE | ~2022-10-21 | XR_ITS ---
Supine and upright views of the abdomen Clinical history: Left ureteral stone COMPARISON: 10/18/2022 Findings: Bowel gas pattern is nonspecific. No evidence for obstruction or free air. 7 mm left-sided stone is present, projecting adjacent to the L2-L3 disc space level.. Stable levoscoliosis and degene rative change of the lumbar spine. Impression: 7 mm proximal left ureteral stone, as detailed above. Reviewed, dictated and finalized at location M. Impression: 7 mm proximal left ureteral stone, as detailed above.
--- NOTE | ~2022-10-21 | XR_ITS ---
EXAMINATION: XR abdomen/kub 1V INDICATION: Left-sided urolithiasis TECHNIQUE: Supine views of the abdomen were obtained on 2 radiographs. COMPARISON: 10/21/2022 FINDINGS: A left internal ureteral stent has been placed in expected position. A 4 mm stone projects in the left kidney lower pole, previously in the left ureter. There are phleboliths of the left pelvi s. The bowel gas pattern is normal. There is mild osteoarthritis of the hips. Severe lumbar spondylos is is noted. IMPRESSION: 1. Left internal ureteral stent in expected position. 4 mm stone of the left kidney lower pole, previ ously in left ureter. Reviewed, dictated and finalized at location [] IMPRESSION: 1. Left internal ureteral stent in expected position. 4 mm stone of the left ki dney lower pole, previously in left ureter.
--- NOTE | ~2022-10-21 | XR_ITS ---
EXAMINATION: XR retrograde pyelo w/stent LT DATE: 10/21/2022 17:23 INDICATION: Left ureteral stone for ureteral stent placement TECHNIQUE: 6 fluoroscopic images of the abdomen and pelvis were obtained during procedure performed beth Hernandez. Radiologist was not present for the imaging or procedure. The amount of fluoroscopy t jad used during this procedure was 0.3 minutes. COMPARISON: None. FINDINGS: Small amount of residual excreted contrast in the proximal left renal collecting system to an earlier contrast-enhanced CT of the abdomen and pelvis. There is a phlebolith in the left hemipelv is. Subsequent images demonstrate retrograde contrast injection into the left ureter with a lucent fi lling defect at the ureteropelvic junction corresponding to the previously noted stone. Subsequent im ages demonstrate advancement of a wire beyond the level of the stone and placement of a left internal ureteral stent with loops formed in the cephalad portion of the left renal pelvis. The stone is unab le to be identified at the conclusion of the procedure and may be obscured by contrast. IMPRESSION: 1. Placement of a left internal ureteral stent for treatment of an obstructing stone at the left uret eropelvic junction. Location of the stone at the conclusion of the procedure is indeterminate. Correl ate with procedure note for further detail. Reviewed, dictated and finalized at location A. IMPRESSION: 1. Placement of a left internal ureteral stent for treatment of an obstructing stone at the left ureteropelvic junction. Location of the stone at the conclusi on of the procedure is indeterminate. Correlate with procedure note for further detail.
--- NOTE | 2022-10-21 13:38 | ED.GENADULT ---
HPI - General Adult General Chief complaint: Extremity Problem,Nontraumatic Stated complaint: left hip pain Time Seen by Provider: 10/21/22 13:17 History of Present Illness HPI narrative: 67-year-old female presents to the emergency room today for complaints of severe left lower back/buttock pain. It started about 3 days ago. She cannot find any position of comfort and is having a hard time with ambulation. She has never had pain like this in the past. It starts in the left buttock and it radiates down the left leg. She has taken hydrocodone and tramadol for pain at home and neither have been helpful. Denies any recent injury or trauma. She has not had any fever or chills. No abdominal pain. She does have a 9 mm kidney stone in the left renal pelvis and is seeing urology for this. She denies any numbness or tingling of extremities. No loss of control of bowel or bladder. Related Data Home Medications Medication Instructions Recorded Confirmed ascorbate calcium (vitamin C) 500 500 mg PO QAM 03/12/19 09/21/22 mg tablet aspirin 81 mg tablet,delayed 323 mg PO QAM 03/12/19 09/21/22 release (Adult Low Dose Aspirin) cholecalciferol (vitamin D3) 25 1,000 unit PO QAM 03/12/19 09/21/22 mcg (1,000 unit) capsule cinnamon bark 500 mg capsule 1,000 mg PO QAM 03/12/19 09/21/22 (Cinnamon) apple cider vinegar 600 mg capsule 1,200 mg PO QAM 07/07/21 09/21/22 ascorbic acid 7.5 mg-vit E 7.5 1 tablet PO QAM 07/07/21 09/21/22 unit-biotin 1,250 mcg chewable tablet (Hair,Skin,Nails with Biotin) zinc 50 mg tablet 50 mg PO QAM 07/07/21 09/21/22 vitamin B complex (B 1 tablet PO DAILY 12/20/21 09/21/22 Complex-Vitamin B12 tablet) blood sugar diagnostic (OneTouch 08/14/22 09/21/22 Ultra Test strips) Allergies Allergy/AdvReac Type Severity Reaction Status Date / Time No Known Allergies Allergy Verified 09/21/22 10:55 Review of Systems Review of Systems: CONSTITUTIONAL: Denies fever, chills, or sweats. EYES: Denies visual changes, redness, or discharge. ENT: Denies rhinorrhea, congestion, sore throat, or otalgia. CARDIOVASCULAR: Denies chest pain, palpitations, or edema. RESPIRATORY: Denies cough or dyspnea. GASTROINTESTINAL: Denies abdominal pain, nausea, vomiting, or diarrhea. GENITOURINARY: Denies dysuria or hematuria. SKIN: Denies rash or itching. MUSCULOSKELETAL: As per HPI NEUROLOGIC: Denies headache, numbness, dizziness, or weakness. PSYCHIATRIC: Denies anxiety or depression. [facility] Past Medical History Medical History Arthritis Arthritis of right hip Arthritis, lumbar spine BMI 39.0-39.9,adult Diabetes mellitus Last charted A1C 7.1 from october of 2018, Pt states her most recent A1c was 6.3 Hallux valgus (acquired), right foot Hammertoe of right foot Osteoarthritis of right knee Seasonal allergic rhinitis Synovial cyst of ankle and foot region Surgical History Surgical History H/O section H/O foot surgery H/O rotator cuff surgery (~03/08/16) Right times three History of arthroscopy of right knee meniscectomy 2011 History of hand surgery (~1988) Right carpal tunnel History of hand surgery (~2007) Left carpal tunnel History of hysterectomy (~1996) History of knee replacement (~08/06/13) Right S/P gastric sleeve procedure Family History Family History Father Cerebrovascular accident Patient's father is Family history of arthritis Heart disease Hypertension Mother Family history of congestive heart failure Family history of obesity Family history of chronic obstructive pulmonary disease Family history of heart disease in male family member before age 55 Sibling Diabetes mellitus Hypertension Heart disease Other Arthritis Social History Social History (Reviewed 10/21/22 @ 14
[2022-10-21] MEDS: ONDANSETRON INJ 4 MG/2 ML VIAL IV PUSH (14:00)
[2022-10-21] MEDS: MORPHINE SULFATE (*CRX) 4 MG/ML INJ IV PUSH (14:01)
[2022-10-21 14:16] LABS: Basophils Absolute Auto 0.1 K/mm3 (0.0-0.1); Basophils Percent Auto 0.4 % (0.2-1.2); Eosinophils Percent Auto 0.2 % (0-4.4); Hematocrit 39.9 % (37.0-47.0); Hemoglobin 12.7 g/dL (12.0-15.0); Immature Granulocyte Absolute 0.15 K/mm3 (0.00-0.031); Immature Granulocyte Percent A 1.1 % (0-0.5); Lymphocytes Absolute Auto 0.93 K/mm3 (0.9-3.2); Lymphocytes Percent Auto 6.7 % (18.3-44.2); Mean Corpuscular HGB Conc 31.8 g/dl (32-36); Mean Corpuscular Hemoglobin 28.4 pg (26-34); Mean Corpuscular Volume 89.3 fl (80-100); Mean Platelet Volume 9.8 fl (7.4-10.4); Monocytes Absolute Auto 1.6 K/mm3 (0.1-0.6); Monocytes Percent Auto 11.7 % (2.6-8.5); Neutrophils Percent Auto 79.9 % (45.5-73.1); Platelet Count Result 328 k/mm3 (150-375); Red Blood Count 4.47 M/mm3 (4.2-5.4); Red Cell Distribution Width 13.7 % (11.5-14.5); White Blood Count 13.8 K/mm3 (4.5-10.0)
[2022-10-21 14:21] LABS: Alanine Aminotransferase 81 U/L (6-35); Alkaline Phosphatase 142 U/L (38-126); Anion Gap 5 mmol/L (8-16); Aspartate Amino Transferase 53 U/L (14-36); Bilirubin,Total 0.6 mg/dL (0.2-1.3); Blood Urea Nitrogen 14 mg/dL (7-17); Calcium 9.2 mg/dL (8.4-10.2); Carbon Dioxide 33 mmol/L (22-30); Chloride 99 mmol/L (98-107); Estimated CRCL calculation 75 ml/min; Estimated Glomerular Filt Rate > 60; Glucose 209 mg/dL (65-110); Sodium 137 mmol/L (137-145)
[2022-10-21 14:45] LABS: Appearance Urine Cloudy (Clear); Bacteria Urine 1+ /hpf; Bilirubin Urine Negative (Negative); Blood Urine 2+ (Negative); Budding Yeast Urine Present /hpf; Color Urine Yellow (Yellow); Glucose Urine UA 3+ mg/dL (Negative); Ketones Urine Negative (Negative); Leukocyte Esterase Ur 2+ LEU/UL (Negative); Mucus Urine Present /lpf; Nitrate Urine Negative (Negative); Protein Urine 1+ mg/dL (Negative); Specific Grav Ur 1.025 (1.001-1.035); Squamous Epithelial Cell Urine Few /hpf (Few); Urobilinogen Urine 0.2 mg/dL (<2.0); WBC Clumps Urine Present /HPF; WBC Urine 51-100 /hpf; pH Urine 5.5 (5.0-9.0)
[2022-10-21 14:47] LABS: Add Urine Microscopic? YES
[2022-10-21] MEDS: SODIUM CHLORIDE 0.9% IV 1,000 ML 999 ML IV CONT (15:33)
[2022-10-21] MEDS: HYDROmorphone HCL INJ (*CRX) 1 MG/ML SYR IV PUSH (15:33)
--- NOTE | 2022-10-21 16:12 | PM.IMHP ---
H&P: HPI History of Present Illness Date/Time: 10/21/22 16:12 Chief Complaint: Left hip Narrative: This is a 59-year-old female patient who has a history of kidney stones. The patient was seen in Dr. Hernandez office earlier this week and was found have a 6-7 mm left renal calculus. The patient was asymptomatic at the time. She was on Eliquis and there was a plan for her to go to the process planner to be cleared for cystoscopy with a stent. The patient stated that she did get clearance she was just waiting to hear back from Urology. And the patient came to the emergency room today with complaints of acute left renal colic. The patient's stone has migrated to the left proximal ureter with hydronephrosis. Also possible UTI. The patient had Dilaudid and morphine in the emergency room. The patient stated that she still having discomfort. She was also started on IV fluids. The patient was seen by Urology today and she had a cystoscopy left retrograde infection. Preop diagnosis was obstructing left ureteral stone with infection. Postop cystoscopy left retrograde pyelogram left ureteral stent placement 4.8 [place] contour. It was noted that the patient had no immediate complications. Her white count was noted to be 13.8. Her blood sugar was 184. Her urine was cloudy and she was positive for UTI. The patient was started on Rocephin in the emergency room. The patient complained of discomfort that is closer to her tailbone and said that CVA. Urology was consulted and has taken her to OR. The patient was admitted to observation on the date of service of 10/21/2022. Review of Systems Review of Systems: All systems reviewed & are unremarkable except as noted in HPI and below Constitutional: Constitutional: Reports as per HPI and Reports no additional constitutional complaints Eyes: Eyes: Reports as per HPI and Reports no additional eye complaints ENT: Reports system reviewed and no additional complaints, except as documented and Reports Normal hearing present Cardiovascular: Cardiovascular: Reports no additional cardiovascular complaints Respiratory: Respiratory: Reports no additional respiratory complaints and Reports no additional respiratory complaints Gastrointestinal: Gastrointestinal: Reports as per HPI and Reports no additional gastrointestinal complaints Musculoskeletal: Musculoskeletal: Reports no additional musculoskeletal complaints Integumentary/Breasts: Skin/Breast: Reports system reviewed and no additional complaints, except as docu and Reports as per HPI Neurologic: Reports system reviewed and no additional complaints, except as documented, Reports as per HPI and Reports Normal hearing present Psychiatric: Psychiatric: Reports no additional psychiatric complaints and Reports as per HPI Endocrine: Endocrine: Reports no additional endocrine complaints Hematologic/Lymphatic: Hematologic/Lymphatic: Reports no additional hematologic/lymphatic complaints Allergic/Immunologic: Allergic/Immunologic: Reports no additional allergic/immunologic complaints [facility] Past Medical History Medical History (Updated 10/21/22 @ 20:04 by Poonam Mcqueen NP) Arthritis Arthritis of right hip Arthritis, lumbar spine BMI 39.0-39.9,adult CAP (community acquired pneumonia) Chronic a-fib Diabetes mellitus Last charted A1C 7.1 from october of 2018, Pt states her most recent A1c was 6.3 Hallux valgus (acquired), right foot Hammertoe of right foot Osteoarthritis of right knee Pneumonia Seasonal allergic rhinitis Synovial cyst of ankle and foot region Surgical History Surgical History (Updated 10/21/22 @ 19:58 by Poonam Mcqueen NP) H/O section X2 H/O foot surgery H/O rotator cuff surgery (~03/08/16) Right times three History of arthroscopy of right knee meniscectomy 2011 History of hand surgery (~1988) Right carpal tunnel History of hand surgery (~2007) Left carpal tunnel History of hysterectomy (~1996) History
[2022-10-21] MEDS: LACTATED RINGERS 1,000 ML 30 ML IV CONT (16:30)
--- NOTE | 2022-10-21 16:31 | WPDURCON ---
Assessment and Plan Assessment and plan (1) Left ureteral calculus: Code(s): N20.1 - Calculus of ureter Status: Acute Assessment and Plan: Proceed with cystoscopy, left retrograde pyelogram, left ureteral stent placement. Stone to be addressed at a later point time (2) Hydronephrosis, left: Code(s): N13.30 - Unspecified hydronephrosis Status: Acute Assessment and Plan: Secondary to obstructing left proximal stone. (3) UTI (urinary tract infection): Code(s): N39.0 - Urinary tract infection, site not specified Status: Acute Assessment and Plan: Awaiting cultures and treat appropriately Urology Consult Note HPI Date Seen: 10/21/22 Time Seen: 16:31 Requesting Physician: Isrrael Middleton MD Primary Care Provider: Tray Gauthier, Consult Narrative Reason for consult: Left proximal ureteral calculus with hydronephrosis, renal colic and UTI Narrative: Shavonne Ahumada is a 67 year old female who was seen in the office earlier in the week was found have a 6-7 mm left renal calculus. She was asymptomatic at that time. She was on Eliquis and the plan was for to get clearance to come off of that for definitive treatment. She then presented emergency room with acute left renal colic. Evaluation the emergency room revealed that stone is migrated to the left proximal ureter with hydronephrosis. Her urinalysis also looks like possible infection. I am told to have an at difficult time controlling her pain. As such will proceed with cystoscopy left retrograde pyelogram, left stent placement with definitive treatment of the stone later point time once she gets over her acute infection. Review of Systems Review of Systems: All systems reviewed & are unremarkable except as noted in HPI and below PMFSH Past Medical History Medical History Arthritis Arthritis of right hip Arthritis, lumbar spine BMI 39.0-39.9,adult Chronic a-fib Diabetes mellitus Last charted A1C 7.1 from october of 2018, Pt states her most recent A1c was 6.3 Hallux valgus (acquired), right foot Hammertoe of right foot Osteoarthritis of right knee Seasonal allergic rhinitis Synovial cyst of ankle and foot region Surgical History Surgical History H/O section H/O foot surgery H/O rotator cuff surgery (~03/08/16) Right times three History of arthroscopy of right knee meniscectomy 2011 History of hand surgery (~1988) Right carpal tunnel History of hand surgery (~2007) Left carpal tunnel History of hysterectomy (~1996) History of knee replacement (~08/06/13) Right S/P gastric sleeve procedure S/P tonsillectomy Family History Family History Father Cerebrovascular accident Patient's father is Family history of arthritis Heart disease Hypertension Mother Family history of congestive heart failure Family history of obesity Family history of chronic obstructive pulmonary disease Family history of heart disease in male family member before age 55 Sibling Diabetes mellitus Hypertension Heart disease Other Arthritis Social History Social History Social History: The patient is . She lives with her oldest daughter. She is retired from [employer]. She is a lifelong nonsmoker. Code status full code Smoking status: Never smoker Second hand tobacco smoke exposure: No Additional smoking assessment comments: 2 children . full code Alcohol intake: never Substance use: never Substance use type: does not use Lack of Transportation: No Lack of Food: Never True Current Housing: I Have Housing Concerned About Future Housing: No Difficulty Paying Gas/Electric Bills: YES Difficult
--- NOTE | 2022-10-21 16:47 | WPDANESEPPF ---
Anes - Initial Pre Proc Eval Procedure: Operation Date: 10/21/22 17:00 Proposed Procedures p Cysto, RPG, Stone Ext, Stent Placement - Gilbert Hernandez MD Date/Time: 10/21/22 16:47 Surgeon: Isrrael Middleton MD Pre Op Diagnosis: Obstructing kidney stone with infection Patient Data Age: 67 Gender: F Height: 1.6 m Weight: 99.79 kg Last Vital Signs Temp 36.9 C 10/21/22 13:15 Pulse 90 10/21/22 13:15 Resp 22 H 10/21/22 13:15 BP 144/52 H 10/21/22 13:15 Pulse Ox 99 10/21/22 13:15 O2 Del Method Room Air 10/21/22 13:15 Allergies Allergy/AdvReac Type Severity Reaction Status Date / Time No Known Allergies Allergy Verified 09/21/22 10:55 Home Medications Medication Instructions Recorded Confirmed Type ascorbate calcium (vitamin C) 500 500 mg PO QAM 03/12/19 09/21/22 History mg tablet aspirin 81 mg tablet,delayed 323 mg PO QAM 03/12/19 09/21/22 History release (Adult Low Dose Aspirin) cholecalciferol (vitamin D3) 25 1,000 unit PO QAM 03/12/19 09/21/22 History mcg (1,000 unit) capsule cinnamon bark 500 mg capsule 1,000 mg PO QAM 03/12/19 09/21/22 History (Cinnamon) apple cider vinegar 600 mg capsule 1,200 mg PO QAM 07/07/21 09/21/22 History ascorbic acid 7.5 mg-vit E 7.5 1 tablet PO QAM 07/07/21 09/21/22 History unit-biotin 1,250 mcg chewable tablet (Hair,Skin,Nails with Biotin) zinc 50 mg tablet 50 mg PO QAM 07/07/21 09/21/22 History albuterol sulfate 90 mcg/actuation 2 inh inhalation Q4-6H PRN 09/06/21 09/21/22 Rx aerosol inhaler (Ventolin HFA) shortness of breath or wheezing #18 grams vitamin B complex (B 1 tablet PO DAILY 12/20/21 09/21/22 History Complex-Vitamin B12 tablet) lisinopril 5 mg tablet 5 mg PO QAM #90 tabs 05/23/22 09/21/22 Rx omeprazole 20 mg capsule,delayed 20 mg PO QAM #90 caps 05/23/22 09/21/22 Rx release budesonide 0.25 mg/2 mL suspension See Rx Instructions .Route 06/25/22 09/21/22 Rx for nebulization .COMPLEX #180 mL blood sugar diagnostic (OneTouch 08/14/22 09/21/22 History Ultra Test strips) amiodarone 200 mg tablet (Pacerone) 200 mg PO DAILY@0800 #30 tabs 08/17/22 09/21/22 Rx apixaban 5 mg tablet (Eliquis) 5 mg PO Q12HR #60 tabs 08/17/22 09/21/22 Rx fluticasone propionate 50 2 spray intranasal QAM #30 grams 08/17/22 09/21/22 Rx mcg/actuation nasal spray,suspension flucytosine 500 mg capsule 1,000 mg PO Q6H #40 caps 09/28/22 Rx tramadol 50 mg tablet 50 mg PO Q6H PRN pain #14 tabs 10/19/22 Rx Laboratory Tests 10/21/22 10/21/22 14:03 14:13 WBC 13.8 H K/mm3 (4.5-10.0) RBC 4.47 M/mm3 (4.2-5.4) Hgb 12.7 g/dL (12.0-15.0) Hct 39.9 % (37.0-47.0) MCV 89.3 fl (80-100) MCH 28.4 pg (26-34) MCHC 31.8 L g/dl (32-36) RDW 13.7 % (11.5-14.5) Plt Count 328 D k/mm3 (150-375) MPV 9.8 fl (7.4-10.4) Immature Gran % (Auto) 1.1 H % (0-0.5) Neut % (Auto) 79.9 H % (45.5-73.1) Lymph % (Auto) 6.7 L % (18.3-44.2) [place] % (Auto) 11.7 H % (2.6-8.5) Eos % (Auto) 0.2 % (0-4.4) Baso % (Auto) 0.4 % (0.2-1.2) Lymph # (Auto) 0.93 K/mm3 (0.9-3.2) [place] # (Auto) 1.6 H K/mm3 (0.1-0.6) Eos # (Auto) 0.0 K/mm3 (0-0.3) Baso # (Auto) 0.1 K/mm3 (0.0-0.1) Abs Immat Gran (auto) 0.15 H K/mm3 (0.00-0.031) Absolute Neuts (auto) 11.0 H K/mm3 (1.3-6.7) Absolute Nucleated RBC 0.0 K/mm3 (0.0-0.012) Nucleated RBC % 0.0 % (0.0-0.2) Sodium 137 mmol/L (137-145) Potassium 4.0 mmol/L (3.4-5.0) Chloride 99 mmol/L (98-107) Carbon Dioxide 33 H mmol/L (22-30) Anion Gap 5 L mmol/L (8-16) BUN 14 mg/dL (7-17) Creatinine 0.70 mg/dL (0.7-1.0) Estim Creat Clear Calc 75 ml/min Estimated GFR > 60 (59 - ) Glucose 209 H mg/dL (65-110) Calcium 9.2 mg/dL (8.4-10.
[2022-10-21] MEDS: ceFAZolin 2 GM/D5W 50 ML 2 GM/50 ML BAG IVPB (16:59)
[2022-10-21] MEDS: LIDOCAINE HCL 2% GEL UROJET 10 ML PKG MUCOUS MEM (17:18)
--- NOTE | 2022-10-21 17:20 | P.OP_ITS ---
Procedure Note - Detailed Date of Procedure 10/21/22 Pre-op Diagnosis Obstructing left ureteral stone with infection Post-op Diagnosis Same Procedure Performed Cystoscopy, left retrograde pyelogram, left ureteral stent placement 4.8 Latvian contour Surgeon Gilbert Hernandez MD Anesthesia General Description of Procedure Patient is taken the operative suite correctly identified. Once anesthesia was obtained was placed in dorsal lithotomy position and prepped and draped usual sterile fashion. Twenty-two Latvian scope was inserted the bladder. There were no tumors noted. Both ureteral orifices normal in down position. Left ureteral orifice was cannulated with a [place] and a pyelogram was performed. Contrast made its way past the stone up in the kidney. The Sensor wire was then advanced up the left renal pelvis. 4.8 [place]vian contour stent was placed over the guidewire into the left renal pelvis. Proximal end was coiled in the left renal pelvis the distal in the bladder. Bladder was drained. 2% viscous lidocaine was inserted into the urethra. Patient is taken recovery stable condition. W ill obtain KUB tomorrow morning to see where the stone is located. Will require outpatient lithotripsy at later time. This completes dictation patient <Ahumada please send a copy to my office Drains Yes Packing No Pathology None sent Complications No immediate complications Condition Stable Disposition PACU
[2022-10-21 18:00] LABS: Glucose Point of Care 184 mg/dl (65-105)
[2022-10-21] MEDS: fentaNYL CITRATE INJ (*CRX) 100 MCG/2 ML VIAL 25 MCG IV PUSH ×5 (18:00→20:46)
--- NOTE | 2022-10-21 19:00 | ADMGEN ---
This patient, Shavonne Ahumada, was admitted to 2 Medical Room 259-01. Patient/family oriented to hospital policies and general routines including ID bracelet, bed and alarms, visiting hours, pain management, procedures, bathroom and other care routines, personal items, smoking policy, room service/diet, and visiting hours. Report received from OR nurse Coco Information on how to activate the Rapid Response Team has been discussed. Patient/Family are encouraged to report perceived risks to care and to ask questions if they do not understand what they are told or what they should do.
--- NOTE | 2022-10-21 20:06 | ADMGEN ---
This patient, Shavonne Ahumada, was admitted to 2 Medical Room 259-01. Patient/family oriented to hospital policies and general routines including ID bracelet, bed and alarms, visiting hours, pain management, procedures, bathroom and other care routines, personal items, smoking policy, room service/diet, and visiting hours. Information on how to activate the Rapid Response Team has been discussed. Patient/Family are encouraged to report perceived risks to care and to ask questions if they do not understand what they are told or what they should do.
[2022-10-21] MEDS: SODIUM CHLORIDE 0.9% IV 250 ML 100 ML IV CONT (23:13)
[2022-10-21] MEDS: ACETAMINOPHEN 325 MG TABLET 650 MG PO (23:16)
[2022-10-21] MEDS: APIXABAN 5 MG TABLET PO (23:17)
[2022-10-22] VITALS (8 sets, daily range): BP systolic 131–151; BP diastolic 54–69; PULSE 85–90; RESP 16–20; TEMP 36.1–36.9; O2SAT 94–100
[2022-10-22] MEDS: fentaNYL CITRATE INJ (*CRX) 100 MCG/2 ML VIAL 25 MCG IV PUSH ×2 (01:53→08:46)
[2022-10-22 05:29] LABS: Basophils Absolute Auto 0.1 K/mm3 (0.0-0.1); Basophils Percent Auto 0.4 % (0.2-1.2); Eosinophils Percent Auto 0.2 % (0-4.4); Hematocrit 37.7 % (37.0-47.0); Immature Granulocyte Absolute 0.11 K/mm3 (0.00-0.031); Immature Granulocyte Percent A 0.9 % (0-0.5); Lymphocytes Absolute Auto 1.22 K/mm3 (0.9-3.2); Lymphocytes Percent Auto 9.8 % (18.3-44.2); Mean Corpuscular HGB Conc 31.8 g/dl (32-36); Mean Corpuscular Hemoglobin 28.9 pg (26-34); Mean Corpuscular Volume 90.8 fl (80-100); Monocytes Absolute Auto 1.4 K/mm3 (0.1-0.6); Monocytes Percent Auto 11.1 % (2.6-8.5); Neutrophils Absolute Auto 9.7 K/mm3 (1.3-6.7); Neutrophils Percent Auto 77.6 % (45.5-73.1); Platelet Count Result 324 k/mm3 (150-375); Red Blood Count 4.15 M/mm3 (4.2-5.4); White Blood Count 12.5 K/mm3 (4.5-10.0)
[2022-10-22 05:40] LABS: Lactic Acid Reflex 1.3 mmol/L (0.7-2.0)
[2022-10-22 05:45] LABS: Alanine Aminotransferase 56 U/L (6-35); Albumin Level 3.7 g/dL (3.5-5.1); Alkaline Phosphatase 117 U/L (38-126); Anion Gap 4 mmol/L (8-16); Aspartate Amino Transferase 36 U/L (14-36); Bilirubin,Total 0.8 mg/dL (0.2-1.3); Blood Urea Nitrogen 11 mg/dL (7-17); Carbon Dioxide 32 mmol/L (22-30); Chloride 102 mmol/L (98-107); Estimated CRCL calculation 75 ml/min; Estimated Glomerular Filt Rate > 60; Glucose 162 mg/dL (65-110); Potassium 3.9 mmol/L (3.4-5.0); Sodium 138 mmol/L (137-145)
[2022-10-22 05:46] LABS: Hemoglobin A1C 7.4 % (<5.7)
[2022-10-22] MEDS: traMADol HCL (*CRX) 50 MG TABLET PO (06:58)
[2022-10-22] MEDS: lisinopriL 5 MG TABLET PO (08:26)
[2022-10-22] MEDS: PANTOPRAZOLE 40 MG TABLET PO (08:26)
[2022-10-22] MEDS: AMIODARONE HCL 200 MG TABLET PO (08:26)
[2022-10-22] MEDS: FLUTICASONE PROPIONATE 0.05% NA SPR 16 GM BTL (*BKC) 2 SPRAY NASAL (08:26)
[2022-10-22 08:34] LABS: Glucose Point of Care 167 mg/dl (65-105)
[2022-10-22] MEDS: APIXABAN 5 MG TABLET PO ×2 (11:50→20:47)
[2022-10-22 12:10] LABS: Glucose Point of Care 250 mg/dl (65-105)
--- NOTE | 2022-10-22 12:11 | P.PNIM_ITS ---
Progress Note: A&P Assessment and Plan (1) UTI (urinary tract infection): Code(s): N39.0 - Urinary tract infection, site not specified Status: Acute Assessment and Plan: The patient was started on Rocephin. Most likely related to the obstructive renal stone. * Blood and urine cultures are pending. * Adjust antibiotics to culture results. (2) Hydronephrosis, left: Code(s): N13.30 - Unspecified hydronephrosis Status: Acute Assessment and Plan: * Please see operative note from Dr. Hernandez * Patient had cystoscopy left retrograde pyelogram left ureteral stent placement 4.8 Stateless contour. * Patient had retrograde pyelogram done that at the conclusion of the procedure could not determine location of the stone * Repeat abdominal x-ray revealed 4 mm stone in the left kidney lower pole (3) Left ureteral calculus: Code(s): N20.1 - Calculus of ureter Status: Acute Assessment and Plan: * The patient will have a retrograde pyelogram to determine the placement of the kidney stone. * Continue with IV fluids. Strain all urine. * Continue with analgesia (4) Chronic a-fib: Code(s): I48.20 - Chronic atrial fibrillation, unspecified Status: Chronic Assessment and Plan: * The patient is in sinus rhythm at this time. * Continue with amiodarone and Eliquis. (5) Diabetes mellitus: Code(s): E11.9 - Type 2 diabetes mellitus without complications Status: Acute Assessment and Plan: * The patient has a history of gastric bypass and is no longer on any medication. * Since her blood sugar was in the 200s. * Will do Accu-Cheks AC and HS with sliding scale insulin and hemoglobin A1c 7.4. * The patient stated that she was started on lisinopril to protect the kidneys. * She denies having any hypertension. (6) Pure hypercholesterolemia: Code(s): E78.00 - Pure hypercholesterolemia, unspecified Status: Acute Assessment and Plan: Heart healthy diet. Subjective Date/time seen: 10/22/22 12:11 Interval history: Patient stills having some pretty significant left-sided back pain. Denies any difficulty urinating or blood in her urine. No nausea or vomiting. 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 Urology seeing for kidney stones. Review of Systems Review of Systems: All systems reviewed & are unremarkable except as noted in HPI and below Exam Narrative: GENERAL: Comfortable, no acute distress HENMT: moist mucous membranes EYES: EOM intact b/l NECK: no lymphadenopathy RESPIRATORY: clear to auscultation CARDIO: RRR GI: soft, nontender, bowel sounds present SKIN: no rashes EXTREMITIES: no edema, redness or tenderness Objective Data Vital Signs Vital Signs: Vital Signs - 24 hr 10/21/22 13:15 10/21/22 17:26 10/21/22 17:40 Temperature 98.4 F 98.5 F Pulse Rate 90 86 93 Respiratory Rate 22 H 16 25 H Blood Pressure 144/52 H 106/56 L 112/58 L Pulse Oximetry 99 97 100 Oxygen Delivery Room Air Room Air Room Air 10/21/22 17:55 10/21/22 18:11 10/21/22 18:25 Temperature Pulse Rate 81 82 82 Respiratory Rate 16 23 H 1
--- NOTE | 2022-10-22 12:11 | PM.IMPN ---
Progress Note: A&P Assessment and Plan (1) UTI (urinary tract infection): Code(s): N39.0 - Urinary tract infection, site not specified Status: Acute Assessment and Plan: The patient was started on Rocephin. Most likely related to the obstructive renal stone. Blood and urine cultures are pending. Adjust antibiotics to culture results. (2) Hydronephrosis, left: Code(s): N13.30 - Unspecified hydronephrosis Status: Acute Assessment and Plan: Please see operative note from Dr. Hernandez Patient had cystoscopy left retrograde pyelogram left ureteral stent placement 4.8 English contour. Patient had retrograde pyelogram done that at the conclusion of the procedure could not determine location of the stone Repeat abdominal x-ray revealed 4 mm stone in the left kidney lower pole (3) Left ureteral calculus: Code(s): N20.1 - Calculus of ureter Status: Acute Assessment and Plan: The patient will have a retrograde pyelogram to determine the placement of the kidney stone. Continue with IV fluids. Strain all urine. Continue with analgesia (4) Chronic a-fib: Code(s): I48.20 - Chronic atrial fibrillation, unspecified Status: Chronic Assessment and Plan: The patient is in sinus rhythm at this time. Continue with amiodarone and Eliquis. (5) Diabetes mellitus: Code(s): E11.9 - Type 2 diabetes mellitus without complications Status: Acute Assessment and Plan: The patient has a history of gastric bypass and is no longer on any medication. Since her blood sugar was in the 200s. Will do Accu-Cheks AC and HS with sliding scale insulin and hemoglobin A1c 7.4. The patient stated that she was started on lisinopril to protect the kidneys. She denies having any hypertension. (6) Pure hypercholesterolemia: Code(s): E78.00 - Pure hypercholesterolemia, unspecified Status: Acute Assessment and Plan: Heart healthy diet. Subjective Date/time seen: 10/22/22 12:11 Interval history: Patient stills having some pretty significant left-sided back pain. Denies any difficulty urinating or blood in her urine. No nausea or vomiting. 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 Urology seeing for kidney stones. Review of Systems Review of Systems: All systems reviewed & are unremarkable except as noted in HPI and below Exam Narrative: GENERAL: Comfortable, no acute distress HENMT: moist mucous membranes EYES: EOM intact b/l NECK: no lymphadenopathy RESPIRATORY: clear to auscultation CARDIO: RRR GI: soft, nontender, bowel sounds present SKIN: no rashes EXTREMITIES: no edema, redness or tenderness Objective Data Vital Signs Vital Signs: Vital Signs - 24 hr 10/21/22 13:15 10/21/22 17:26 10/21/22 17:40 Temperature 98.4 F 98.5 F Pulse Rate 90 86 93 Respiratory Rate 22 H 16 25 H Blood Pressure 144/52 H 106/56 L 112/58 L Pulse Oximetry 99 97 100 Oxygen Delivery Room Air Room Air Room Air 10/21/22 17:55 10/21/22 18:11 10/21/22 18:25 Temperature Pulse Rate 81 82 82 Respiratory Rate 16 23 H 11 L Blood Pressure 132/57 L 131/58 L 126/60 Pulse Oximetry 99 98 99 Oxygen Delivery Room Air Room Air Room Air 10/21/22 18:40 10/21/22 18:55 10/21/22 20:09 Temperature Pulse Rate 84 81 Respiratory Rate 21 H 14 Blood Pressure 130/62 131/64 Pulse Oximetry 100 98 Oxygen Delivery Room Air Room Air Room Air 10/21/22 20:00 10/22/22 02:44 10/22/22 05:00 Temperature 98.9 F 97.2 F L 97.7 F Pulse Rate 90 85 86 Respiratory Rate 21 H 20 20 Blood Pressure 147/73 H 131/58 L 151/69 H Pulse Oximetry 100 98 98 Oxygen Delivery 10/22/22 08:26 10/22/22 08:42 Temperature 97.0 F L Pulse Rate 85 85 Respiratory Rate 16 Blood Pressure 142/54 H Pulse Oximetry 100 Oxygen Delivery Intake/Output Intake/O
[2022-10-22] MEDS: INSULIN ASPART (*BKC) 100 UNITS/ML SUB-Q (12:18)
[2022-10-22] MEDS: MORPHINE SULFATE (*CRX) 2 MG/ML INJ IV PUSH ×2 (15:48→20:56)
[2022-10-22] MEDS: oxyBUTYnin CHLORIDE 5 MG TABLET PO (17:11)
[2022-10-22 17:34] LABS: Glucose Point of Care 186 mg/dl (65-105)
[2022-10-23] VITALS (9 sets, daily range): BP systolic 110–144; BP diastolic 51–69; PULSE 72–100; RESP 16–20; TEMP 35.7–36.6; O2SAT 92–100
[2022-10-23] MEDS: traMADol HCL (*CRX) 50 MG TABLET PO ×2 (03:20→10:05)
[2022-10-23 05:45] LABS: Basophils Percent Auto 0.3 % (0.2-1.2); Eosinophils Absolute Auto 0.1 K/mm3 (0-0.3); Eosinophils Percent Auto 0.5 % (0-4.4); Hematocrit 34.4 % (37.0-47.0); Hemoglobin 10.9 g/dL (12.0-15.0); Immature Granulocyte Absolute 0.13 K/mm3 (0.00-0.031); Immature Granulocyte Percent A 1.1 % (0-0.5); Lymphocytes Absolute Auto 0.99 K/mm3 (0.9-3.2); Lymphocytes Percent Auto 8.6 % (18.3-44.2); Mean Corpuscular HGB Conc 31.7 g/dl (32-36); Mean Corpuscular Hemoglobin 28.4 pg (26-34); Mean Corpuscular Volume 89.6 fl (80-100); Mean Platelet Volume 10.1 fl (7.4-10.4); Monocytes Percent Auto 8.5 % (2.6-8.5); Neutrophils Absolute Auto 9.3 K/mm3 (1.3-6.7); Platelet Count Result 325 k/mm3 (150-375); Red Blood Count 3.84 M/mm3 (4.2-5.4); Red Cell Distribution Width 13.8 % (11.5-14.5); White Blood Count 11.5 K/mm3 (4.5-10.0)
[2022-10-23 05:58] LABS: Alanine Aminotransferase 42 U/L (6-35); Albumin Level 3.2 g/dL (3.5-5.1); Alkaline Phosphatase 107 U/L (38-126); Anion Gap 6 mmol/L (8-16); Aspartate Amino Transferase 24 U/L (14-36); Bilirubin,Total 0.5 mg/dL (0.2-1.3); Blood Urea Nitrogen 11 mg/dL (7-17); Carbon Dioxide 33 mmol/L (22-30); Chloride 99 mmol/L (98-107); Estimated CRCL calculation 75 ml/min; Estimated Glomerular Filt Rate > 60; Glucose 239 mg/dL (65-110); Potassium 3.8 mmol/L (3.4-5.0); Sodium 138 mmol/L (137-145)
[2022-10-23 07:51] LABS: Glucose Point of Care 205 mg/dl (65-105)
[2022-10-23] MEDS: cefTRIAXone 2 GM/NS 100 ML 2 GM/100 ML BAG IVPB (09:36)
[2022-10-23] MEDS: AMIODARONE HCL 200 MG TABLET PO (09:36)
[2022-10-23] MEDS: PANTOPRAZOLE 40 MG TABLET PO (09:36)
[2022-10-23] MEDS: lisinopriL 5 MG TABLET PO (09:36)
[2022-10-23] MEDS: APIXABAN 5 MG TABLET PO ×2 (09:36→20:35)
[2022-10-23] MEDS: INSULIN ASPART (*BKC) 100 UNITS/ML SUB-Q ×3 (09:37→17:44)
[2022-10-23] MEDS: FLUTICASONE PROPIONATE 0.05% NA SPR 16 GM BTL (*BKC) 2 SPRAY NASAL (09:37)
[2022-10-23] MEDS: oxyBUTYnin CHLORIDE 5 MG TABLET PO (10:05)
[2022-10-23 12:34] LABS: Glucose Point of Care 217 mg/dl (65-105)
--- NOTE | 2022-10-23 12:43 | P.PNIM_ITS ---
Progress Note: A&P Assessment and Plan (1) UTI (urinary tract infection): Code(s): N39.0 - Urinary tract infection, site not specified Status: Acute Assessment and Plan: The patient was started on Rocephin. Most likely related to the obstructive renal stone. * Urine cultures positive for enterococcus * Blood culture gram positive cocci * Urine culture positive for Enterococcus and patient transition to vancomycin from Rocephin on 10/23/2022 (2) Hydronephrosis, left: Code(s): N13.30 - Unspecified hydronephrosis Status: Acute Assessment and Plan: * Please see operative note from Dr. Hernandez * Patient had cystoscopy left retrograde pyelogram left ureteral stent placement 4.8 [place] contour. * Patient had retrograde pyelogram done that at the conclusion of the procedure could not determine location of the stone * Repeat abdominal x-ray revealed 4 mm stone in the left kidney lower pole (3) Left ureteral calculus: Code(s): N20.1 - Calculus of ureter Status: Acute Assessment and Plan: * The patient will have a retrograde pyelogram to determine the placement of the kidney stone. * Continue with IV fluids. Strain all urine. * Continue with analgesia (4) Chronic a-fib: Code(s): I48.20 - Chronic atrial fibrillation, unspecified Status: Chronic Assessment and Plan: * The patient is in sinus rhythm at this time. * Continue with amiodarone and Eliquis. (5) Diabetes mellitus: Code(s): E11.9 - Type 2 diabetes mellitus without complications Status: Acute Assessment and Plan: * The patient has a history of gastric bypass and is no longer on any medication. * Since her blood sugar was in the 200s. * Will do Accu-Cheks AC and HS with sliding scale insulin and hemoglobin A1c 7.4. * The patient stated that she was started on lisinopril to protect the kidneys. * She denies having any hypertension. (6) Pure hypercholesterolemia: Code(s): E78.00 - Pure hypercholesterolemia, unspecified Status: Acute Assessment and Plan: Heart healthy diet. Subjective Date/time seen: 10/23/22 12:43 Interval history: Patient's pain is well controlled. Explained to her the process of repeating blood cultures and getting the right antibiotic on her. She verbalized understanding. She believes that most of her pain is due to sciatica and when she pointed out that appears to be the source most of her ?back? pain. she pointed to the middle of her right buttock sensitive with pain ridging there and sometimes shoots down her leg. Review of Systems Review of Systems: All systems reviewed & are unremarkable except as noted in HPI and below Exam Narrative: GENERAL: Comfortable, no acute distress HENMT: moist mucous membranes EYES: EOM intact b/l NECK: no lymphadenopathy RESPIRATORY: clear to auscultation CARDIO: RRR GI: soft, nontender, bowel sounds present SKIN: no rashes EXTREMITIES: no edema, redness or tenderness Objective Data Vital Signs Vital Signs: Vital Signs - 24 hr 10/22/22 14:35 10/22/22 19:41 10/22/22 20:00 Temperature 98.5 F 98.3 F Pulse Rate 86 90 Respiratory Rate 16 18 Blood Pressure 142/59 H 143/62 H
--- NOTE | 2022-10-23 12:43 | PM.IMPN ---
Progress Note: A&P Assessment and Plan (1) UTI (urinary tract infection): Code(s): N39.0 - Urinary tract infection, site not specified Status: Acute Assessment and Plan: The patient was started on Rocephin. Most likely related to the obstructive renal stone. Urine cultures positive for enterococcus Blood culture gram positive cocci Urine culture positive for Enterococcus and patient transition to vancomycin from Rocephin on 10/23/2022 (2) Hydronephrosis, left: Code(s): N13.30 - Unspecified hydronephrosis Status: Acute Assessment and Plan: Please see operative note from Dr. Hernandez Patient had cystoscopy left retrograde pyelogram left ureteral stent placement 4.8 Hebrew contour. Patient had retrograde pyelogram done that at the conclusion of the procedure could not determine location of the stone Repeat abdominal x-ray revealed 4 mm stone in the left kidney lower pole (3) Left ureteral calculus: Code(s): N20.1 - Calculus of ureter Status: Acute Assessment and Plan: The patient will have a retrograde pyelogram to determine the placement of the kidney stone. Continue with IV fluids. Strain all urine. Continue with analgesia (4) Chronic a-fib: Code(s): I48.20 - Chronic atrial fibrillation, unspecified Status: Chronic Assessment and Plan: The patient is in sinus rhythm at this time. Continue with amiodarone and Eliquis. (5) Diabetes mellitus: Code(s): E11.9 - Type 2 diabetes mellitus without complications Status: Acute Assessment and Plan: The patient has a history of gastric bypass and is no longer on any medication. Since her blood sugar was in the 200s. Will do Accu-Cheks AC and HS with sliding scale insulin and hemoglobin A1c 7.4. The patient stated that she was started on lisinopril to protect the kidneys. She denies having any hypertension. (6) Pure hypercholesterolemia: Code(s): E78.00 - Pure hypercholesterolemia, unspecified Status: Acute Assessment and Plan: Heart healthy diet. Subjective Date/time seen: 10/23/22 12:43 Interval history: Patient's pain is well controlled. Explained to her the process of repeating blood cultures and getting the right antibiotic on her. She verbalized understanding. She believes that most of her pain is due to sciatica and when she pointed out that appears to be the source most of her ?back? pain. she pointed to the middle of her right buttock sensitive with pain ridging there and sometimes shoots down her leg. Review of Systems Review of Systems: All systems reviewed & are unremarkable except as noted in HPI and below Exam Narrative: GENERAL: Comfortable, no acute distress HENMT: moist mucous membranes EYES: EOM intact b/l NECK: no lymphadenopathy RESPIRATORY: clear to auscultation CARDIO: RRR GI: soft, nontender, bowel sounds present SKIN: no rashes EXTREMITIES: no edema, redness or tenderness Objective Data Vital Signs Vital Signs: Vital Signs - 24 hr 10/22/22 14:35 10/22/22 19:41 10/22/22 20:00 Temperature 98.5 F 98.3 F Pulse Rate 86 90 Respiratory Rate 16 18 Blood Pressure 142/59 H 143/62 H Pulse Oximetry 100 94 Oxygen Delivery Room Air 10/22/22 20:12 10/23/22 00:00 10/23/22 04:00 Temperature 98.3 F 96.8 F L 97.6 F Pulse Rate 90 83 72 Respiratory Rate 18 18 20 Blood Pressure 143/62 H 122/54 L 142/69 H Pulse Oximetry 94 96 98 Oxygen Delivery 10/23/22 05:46 10/23/22 08:31 10/23/22 09:49 Temperature 97.6 F 97.6 F Pulse Rate 72 100 Respiratory Rate 20 18 Blood Pressure 142/69 H 144/51 H Pulse Oximetry 98 92 100 Oxygen Delivery Room Air Intake/Output Intake/Output: Intake & Output 10/20/22 10/21/22 10/22/22 10/23/22 23:59 23:59 23:59 23:59 Intake Total 1450 1950 630 Output Total 1650 Balance 1450 300 6
--- NOTE | 2022-10-23 13:40 | WPDUROPN2 ---
Progress Note: A&P Assessment and Plan (1) UTI (urinary tract infection): Code(s): N39.0 - Urinary tract infection, site not specified Status: Acute Assessment and Plan: urine culture pending, tailor antibiotics to culture results. (2) Hydronephrosis, left: Code(s): N13.30 - Unspecified hydronephrosis Status: Acute Assessment and Plan: Stent in place and creatinine stable. (3) Left ureteral calculus: Code(s): N20.1 - Calculus of ureter Status: Acute Assessment and Plan: Migrated back into kidney after stent placement, but visible on KUB. Will plan a left ESWL in 2 weeks after infection has resolved as an outpatient. Will schedule. Patient will need to f/u in the office for a repeat urine culture next week to ensure infection has resolved. (4) Sepsis: Code(s): A41.9 - Sepsis, unspecified organism Status: Acute Assessment and Plan: Continue IV antibiotics, tailor to culture results, recommend 10-14 days of antibiotic therapy. Time Spent With Patient Time with patient: less than 15 minutes Subjective Subjective Date/Time Seen: 10/23/22 13:40 POD #2 Cystoscopy, left stent, left retrograde pyleogram. Patient tolerating stent better today after use of Oxybutynin last night. She has an improved WBC of 11.5, Creatinine is stable at 0.70. Blood cultures are positive growing gram positive cocci, sensitivity is still pending. Urine cultures are still pending and she remains on Ceftriaxone without fever. Post Op day: 2 Review of Systems Cardiovascular: Cardiovascular: Denies chest pain Respiratory: Respiratory: Reports no additional respiratory complaints Gastrointestinal: Gastrointestinal: Reports abdominal pain, Denies nausea and Denies vomiting Genitourinary: Genitourinary: Denies hematuria, Denies nocturia, Denies dysuria, Denies pelvic pain, Reports flank pain, Denies urinary incontinence, Denies urinary hesitancy and Denies urinary urgency Exam Resp: Effort & Inspection: normal respiratory effort Cardio: Rate: regular rate GI: GI Palp: Yes Soft to palpation and Yes Tenderness to palpation present (GI) : General: Yes no CVA tenderness Extrem: Right lower extremity: no edema Left lower extremity: no edema Objective Data Vital Signs Vital Signs: Vital Signs - 24 hr 10/22/22 14:35 10/22/22 19:41 10/22/22 20:00 Temperature 98.5 F 98.3 F Pulse Rate 86 90 Respiratory Rate 16 18 Blood Pressure 142/59 H 143/62 H Pulse Oximetry 100 94 Oxygen Delivery Room Air 10/22/22 20:12 10/23/22 00:00 10/23/22 04:00 Temperature 98.3 F 96.8 F L 97.6 F Pulse Rate 90 83 72 Respiratory Rate 18 18 20 Blood Pressure 143/62 H 122/54 L 142/69 H Pulse Oximetry 94 96 98 Oxygen Delivery 10/23/22 05:46 10/23/22 08:31 10/23/22 09:49 Temperature 97.6 F 97.6 F Pulse Rate 72 100 Respiratory Rate 20 18 Blood Pressure 142/69 H 144/51 H Pulse Oximetry 98 92 100 Oxygen Delivery Room Air Intake/Output Intake/Output: Intake & Output 10/20/22 10/21/22 10/22/22 10/23/22 23:59 23:59 23:59 23:59 Intake Total 1450 1950 830 Output Total 1650 500 Balance 1450 300 330 Meds/Results Medications: Active Medications Generic Name Dose Route Start Last Admin Trade Name Freq PRN Reason Stop Dose Admin Acetaminophen 650 mg 10/21/22 22:49 10/21/22 23:16 Acetaminophen 325 Mg Tablet PO 650 mg Q4H PRN Administration Mild Pain (1-3) or Fever Albuterol 2 puff 10/21/22 22:08 Albuterol Sulfate (*Sp) Aerosol 1 Puff INHALATION Q4-6H PRN shortness of breath or wheezing Amiodarone HCl 200 mg 10/22/22 08:00 10/23/22 09:36 Amiodarone Hcl 200 Mg Tablet PO 200 mg DAILY@0800 RONEN Administration Apixaban 5 mg 10/21/22 22:10 10/23/22 09:36 Apixaban 5 Mg Tablet PO 5 mg Q12HR RONEN Administration Dextrose 12.5 gm 10/21/22 20:08 Dextrose 50% 25 Gm/50 Ml Syringe IV PUSH PRN PRN
[2022-10-23] MEDS: CYCLOBENZAPRINE HCL 10 MG TABLET PO (15:13)
[2022-10-23] MEDS: IBUPROFEN 400 MG TABLET PO (15:13)
[2022-10-23] MEDS: DICLOFENAC SODIUM 1% 100 GM GEL (*BKC) 1 APPLIC TOPICAL ×2 (16:04→20:36)
[2022-10-23 17:39] LABS: Glucose Point of Care 206 mg/dl (65-105)
[2022-10-24] VITALS (10 sets, daily range): BP systolic 115–156; BP diastolic 59–71; PULSE 72–95; RESP 18–20; TEMP 36–36.8; O2SAT 92–97
[2022-10-24] MEDS: CYCLOBENZAPRINE HCL 10 MG TABLET PO ×3 (00:50→20:48)
[2022-10-24] MEDS: traMADol HCL (*CRX) 50 MG TABLET PO ×2 (02:03→12:10)
[2022-10-24 05:41] LABS: Basophils Percent Auto 0.5 % (0.2-1.2); Eosinophils Absolute Auto 0.1 K/mm3 (0-0.3); Eosinophils Percent Auto 1.6 % (0-4.4); Hemoglobin 10.5 g/dL (12.0-15.0); Immature Granulocyte Absolute 0.09 K/mm3 (0.00-0.031); Lymphocytes Percent Auto 13.5 % (18.3-44.2); Mean Corpuscular HGB Conc 30.9 g/dl (32-36); Mean Corpuscular Hemoglobin 28.1 pg (26-34); Mean Corpuscular Volume 90.9 fl (80-100); Mean Platelet Volume 9.6 fl (7.4-10.4); Monocytes Absolute Auto 0.8 K/mm3 (0.1-0.6); Monocytes Percent Auto 8.6 % (2.6-8.5); Neutrophils Absolute Auto 6.6 K/mm3 (1.3-6.7); Neutrophils Percent Auto 74.8 % (45.5-73.1); Platelet Count Result 341 k/mm3 (150-375); Red Blood Count 3.74 M/mm3 (4.2-5.4); Red Cell Distribution Width 13.7 % (11.5-14.5); White Blood Count 8.9 K/mm3 (4.5-10.0)
[2022-10-24 05:52] LABS: Anion Gap 2 mmol/L (8-16); Blood Urea Nitrogen 15 mg/dL (7-17); Calcium 8.7 mg/dL (8.4-10.2); Carbon Dioxide 37 mmol/L (22-30); Chloride 98 mmol/L (98-107); Estimated CRCL calculation 86 ml/min; Estimated Glomerular Filt Rate > 60; Glucose 160 mg/dL (65-110); Potassium 3.6 mmol/L (3.4-5.0); Sodium 137 mmol/L (137-145)
[2022-10-24] MEDS: oxyBUTYnin CHLORIDE 5 MG TABLET PO (06:35)
[2022-10-24] MEDS: lisinopriL 5 MG TABLET PO (08:10)
[2022-10-24] MEDS: PANTOPRAZOLE 40 MG TABLET PO (08:10)
[2022-10-24] MEDS: APIXABAN 5 MG TABLET PO ×2 (08:11→20:48)
[2022-10-24] MEDS: AMIODARONE HCL 200 MG TABLET PO (08:11)
[2022-10-24] MEDS: FLUTICASONE PROPIONATE 0.05% NA SPR 16 GM BTL (*BKC) 2 SPRAY NASAL (08:12)
[2022-10-24] MEDS: DICLOFENAC SODIUM 1% 100 GM GEL (*BKC) 1 APPLIC TOPICAL ×4 (08:12→20:48)
[2022-10-24 08:24] LABS: Glucose Point of Care 187 mg/dl (65-105)
[2022-10-24 11:56] LABS: Glucose Point of Care 189 mg/dl (65-105)
--- NOTE | 2022-10-24 12:15 | P.PNIM_ITS ---
Progress Note: A&P Assessment and Plan (1) UTI (urinary tract infection): Qualifiers: Urinary tract infection type: acute cystitis Hematuria presence: without hematuria Qualified Code(s): N30.00 - Acute cystitis without hematuria Code(s): N39.0 - Urinary tract infection, site not specified Status: Acute Assessment and Plan: * Urine cultures positive for enterococcus * Blood culture gram positive cocci * Urine culture positive for Enterococcus and patient transition to vancomycin from Rocephin on 10/23/2022 * Repeat blood cultures pending * likely will need 1 days total of IV antibiotics (2) Hydronephrosis, left: Code(s): N13.30 - Unspecified hydronephrosis Status: Acute Assessment and Plan: * Please see operative note from Dr. Hernandez * Patient had cystoscopy left retrograde pyelogram left ureteral stent placement 4.8 Cuban contour. * Patient had retrograde pyelogram done that at the conclusion of the procedure could not determine location of the stone * Repeat abdominal x-ray revealed 4 mm stone in the left kidney lower pole * procedure is scheduled for November 02 (3) Left ureteral calculus: Code(s): N20.1 - Calculus of ureter Status: Acute Assessment and Plan: * The patient will have a retrograde pyelogram to determine the placement of the kidney stone. * Continue with IV fluids. Strain all urine. * Continue with analgesia (4) Chronic a-fib: Code(s): I48.20 - Chronic atrial fibrillation, unspecified Status: Chronic Assessment and Plan: * The patient is in sinus rhythm at this time. * Continue with amiodarone and Eliquis. (5) Diabetes mellitus: Qualifiers: Diabetes mellitus type: type 2 Diabetes mellitus deaf interpreter insulin use: without jail use Diabetes mellitus complication status: with other specified complication Qualified Code(s): E11.69 - Type 2 diabetes mellitus with other specified complication Code(s): E11.9 - Type 2 diabetes mellitus without complications Status: Acute Assessment and Plan: * The patient has a history of gastric bypass and is no longer on any medication. * Since her blood sugar was in the 200s. * Will do Accu-Cheks AC and HS with sliding scale insulin and hemoglobin A1c 7.4. * The patient stated that she was started on lisinopril to protect the kidneys. * She denies having any hypertension. (6) Pure hypercholesterolemia: Code(s): E78.00 - Pure hypercholesterolemia, unspecified Status: Acute Assessment and Plan: Heart healthy diet. (7) Sepsis: Qualifiers: Sepsis type: sepsis due to unspecified organism Sepsis acute organ dysfunction status: without acute organ dysfunction Qualified Code(s): A41.9 - Sepsis, unspecified organism Code(s): A41.9 - Sepsis, unspecified organism Status: Acute Assessment and Plan: * Blood cultures positive * Awaiting sensitivities * Repeat cultures cooking * Continue with vanco for now (8) Bacteremia: Code(s): R78.81 - Bacteremia Status: Acute Assessment and Plan: * see above (9) Sciatica: Qualifiers: Laterality: left Qualified Code(s): M54.32 - Sciatica, left side Code(s): M54.30 - Sciatica, unspecified side
--- NOTE | 2022-10-24 12:15 | PM.IMPN ---
Progress Note: A&P Assessment and Plan (1) UTI (urinary tract infection): Qualifiers: Urinary tract infection type: acute cystitis Hematuria presence: without hematuria Qualified Code(s): N30.00 - Acute cystitis without hematuria Code(s): N39.0 - Urinary tract infection, site not specified Status: Acute Assessment and Plan: Urine cultures positive for enterococcus Blood culture gram positive cocci Urine culture positive for Enterococcus and patient transition to vancomycin from Rocephin on 10/23/2022 Repeat blood cultures pending likely will need 1 days total of IV antibiotics (2) Hydronephrosis, left: Code(s): N13.30 - Unspecified hydronephrosis Status: Acute Assessment and Plan: Please see operative note from Dr. Hernandez Patient had cystoscopy left retrograde pyelogram left ureteral stent placement 4.8 Albanian contour. Patient had retrograde pyelogram done that at the conclusion of the procedure could not determine location of the stone Repeat abdominal x-ray revealed 4 mm stone in the left kidney lower pole procedure is scheduled for November 02 (3) Left ureteral calculus: Code(s): N20.1 - Calculus of ureter Status: Acute Assessment and Plan: The patient will have a retrograde pyelogram to determine the placement of the kidney stone. Continue with IV fluids. Strain all urine. Continue with analgesia (4) Chronic a-fib: Code(s): I48.20 - Chronic atrial fibrillation, unspecified Status: Chronic Assessment and Plan: The patient is in sinus rhythm at this time. Continue with amiodarone and Eliquis. (5) Diabetes mellitus: Qualifiers: Diabetes mellitus type: type 2 Diabetes mellitus prison insulin use: without prison use Diabetes mellitus complication status: with other specified complication Qualified Code(s): E11.69 - Type 2 diabetes mellitus with other specified complication Code(s): E11.9 - Type 2 diabetes mellitus without complications Status: Acute Assessment and Plan: The patient has a history of gastric bypass and is no longer on any medication. Since her blood sugar was in the 200s. Will do Accu-Cheks AC and HS with sliding scale insulin and hemoglobin A1c 7.4. The patient stated that she was started on lisinopril to protect the kidneys. She denies having any hypertension. (6) Pure hypercholesterolemia: Code(s): E78.00 - Pure hypercholesterolemia, unspecified Status: Acute Assessment and Plan: Heart healthy diet. (7) Sepsis: Qualifiers: Sepsis type: sepsis due to unspecified organism Sepsis acute organ dysfunction status: without acute organ dysfunction Qualified Code(s): A41.9 - Sepsis, unspecified organism Code(s): A41.9 - Sepsis, unspecified organism Status: Acute Assessment and Plan: Blood cultures positive Awaiting sensitivities Repeat cultures cooking Continue with vanco for now (8) Bacteremia: Code(s): R78.81 - Bacteremia Status: Acute Assessment and Plan: see above (9) Sciatica: Qualifiers: Laterality: left Qualified Code(s): M54.32 - Sciatica, left side Code(s): M54.30 - Sciatica, unspecified side Status: Acute Assessment and Plan: Left sided Steroids ordered and given Time Spent With Patient Time: 39 minutes Time with patient: Greater than 35 minutes Subjective Date/time seen: 10/24/22 1215 Interval history: patient sitting on the side the bed. Patient stated that she is having some bad luck with a left-sided for sciatica. He is denying any current chest pain, shortness a breath, nausea, vomiting, diarrhea constipation. Spoke to her about the IV antibiotics she was not too thrilled about it. she most likely need IV an
[2022-10-24] MEDS: MORPHINE SULFATE (*CRX) 2 MG/ML INJ IV PUSH (13:37)
[2022-10-24 16:58] LABS: Glucose Point of Care 224 mg/dl (65-105)
[2022-10-24] MEDS: methylPREDNISolone SOD SUCC 125 MG VIAL IV PUSH (17:15)
[2022-10-24] MEDS: INSULIN ASPART (*BKC) 100 UNITS/ML SUB-Q (17:16)
[2022-10-24 21:32] LABS: Glucose Point of Care 407 mg/dl (65-105)
[2022-10-24] MEDS: INSULIN ASPART (*BKC) 100 UNITS/ML 10 UNITS SUB-Q (21:58)
[2022-10-25 06:00] VITALS: BP 136/68; PULSE 66; RESP 20; TEMP 36.2; O2SAT 99
[2022-10-25 06:21] LABS: Basophils Absolute Auto 0.1 K/mm3 (0.0-0.1); Basophils Percent Auto 0.4 % (0.2-1.2); Hematocrit 35.1 % (37.0-47.0); Hemoglobin 11.5 g/dL (12.0-15.0); Immature Granulocyte Absolute 0.21 K/mm3 (0.00-0.031); Immature Granulocyte Percent A 1.3 % (0-0.5); Lymphocytes Absolute Auto 0.73 K/mm3 (0.9-3.2); Lymphocytes Percent Auto 4.7 % (18.3-44.2); Mean Corpuscular HGB Conc 32.8 g/dl (32-36); Mean Corpuscular Volume 88.6 fl (80-100); Mean Platelet Volume 9.4 fl (7.4-10.4); Monocytes Absolute Auto 0.4 K/mm3 (0.1-0.6); Monocytes Percent Auto 2.4 % (2.6-8.5); Neutrophils Absolute Auto 14.2 K/mm3 (1.3-6.7); Neutrophils Percent Auto 91.2 % (45.5-73.1); Platelet Count Result 431 k/mm3 (150-375); Red Blood Count 3.96 M/mm3 (4.2-5.4); Red Cell Distribution Width 13.6 % (11.5-14.5); White Blood Count 15.6 K/mm3 (4.5-10.0)
[2022-10-25 06:29] LABS: Alanine Aminotransferase 45 U/L (6-35); Albumin Level 3.5 g/dL (3.5-5.1); Alkaline Phosphatase 128 U/L (38-126); Anion Gap 0 mmol/L (8-16); Aspartate Amino Transferase 31 U/L (14-36); Bilirubin,Total 0.4 mg/dL (0.2-1.3); Blood Urea Nitrogen 19 mg/dL (7-17); Calcium 9.2 mg/dL (8.4-10.2); Carbon Dioxide 37 mmol/L (22-30); Chloride 99 mmol/L (98-107); Estimated CRCL calculation 75 ml/min; Estimated Glomerular Filt Rate > 60; Glucose 283 mg/dL (65-110); Potassium 4.4 mmol/L (3.4-5.0); Sodium 136 mmol/L (137-145)
[2022-10-25 06:46] LABS: Vancomycin Trough 11.7 ug/mL (10.0-20.0)
[2022-10-25 08:10] VITALS: BP 141/73; PULSE 73; RESP 18; TEMP 36.3; O2SAT 100
[2022-10-25 08:32] LABS: Glucose Point of Care 252 mg/dl (65-105)
[2022-10-25 08:37] VITALS: PULSE 80
[2022-10-25] MEDS: AMIODARONE HCL 200 MG TABLET PO (08:37)
[2022-10-25] MEDS: FLUTICASONE PROPIONATE 0.05% NA SPR 16 GM BTL (*BKC) 2 SPRAY NASAL (08:37)
[2022-10-25] MEDS: APIXABAN 5 MG TABLET PO (08:37)
[2022-10-25] MEDS: lisinopriL 5 MG TABLET PO (08:37)
[2022-10-25] MEDS: PANTOPRAZOLE 40 MG TABLET PO (08:37)
[2022-10-25] MEDS: INSULIN ASPART (*BKC) 100 UNITS/ML SUB-Q ×2 (08:47→12:49)
--- NOTE | 2022-10-25 11:54 | P.DS_ITS ---
DS: Admitting Diagnosis Discharge Date 10/25/22 1030 Admitting Diagnosis Complicated UTI, Bacteremia, Sepsis, kidney stone with hydronephrosis DS: Discharge Diagnosis Discharge Diagnosis (1) UTI (urinary tract infection): Qualifiers: Urinary tract infection type: acute cystitis Hematuria presence: without hematuria Qualified Code(s): N30.00 - Acute cystitis without hematuria Code(s): N39.0 - Urinary tract infection, site not specified Status: Acute Assessment and Plan: * Urine cultures positive for enterococcus * Blood culture gram positive cocci * Urine culture positive for Enterococcus and patient transition to vancomycin from Rocephin on 10/23/2022 * Repeat blood cultures pending * likely will need 1 days total of IV antibiotics (2) Hydronephrosis, left: Code(s): N13.30 - Unspecified hydronephrosis Status: Acute Assessment and Plan: * Please see operative note from Dr. Hernandez * Patient had cystoscopy left retrograde pyelogram left ureteral stent placement 4.8 Turkmen contour. * Patient had retrograde pyelogram done that at the conclusion of the procedure could not determine location of the stone * Repeat abdominal x-ray revealed 4 mm stone in the left kidney lower pole * procedure is scheduled for November 02 (3) Left ureteral calculus: Code(s): N20.1 - Calculus of ureter Status: Acute Assessment and Plan: * The patient will have a retrograde pyelogram to determine the placement of the kidney stone. * Continue with IV fluids. Strain all urine. * Continue with analgesia (4) Chronic a-fib: Code(s): I48.20 - Chronic atrial fibrillation, unspecified Status: Chronic Assessment and Plan: * The patient is in sinus rhythm at this time. * Continue with amiodarone and Eliquis. (5) Diabetes mellitus: Qualifiers: Diabetes mellitus type: type 2 Diabetes mellitus report developer insulin use: without fci use Diabetes mellitus complication status: with other specified complication Qualified Code(s): E11.69 - Type 2 diabetes mellitus with other specified complication Code(s): E11.9 - Type 2 diabetes mellitus without complications Status: Acute Assessment and Plan: * The patient has a history of gastric bypass and is no longer on any medic ation. * Since her blood sugar was in the 200s. * Will do Accu-Cheks AC and HS with sliding scale insulin and hemoglobin A1c 7.4. * The patient stated that she was started on lisinopril to protect the kidneys. * She denies having any hypertension. (6) Pure hypercholesterolemia: Code(s): E78.00 - Pure hypercholesterolemia, unspecified Status: Acute Assessment and Plan: Heart healthy diet. (7) Sepsis: Qualifiers: Sepsis type: sepsis due to unspecified organism Sepsis acute organ dysfunction status: without acute organ dysfunction Qualified Code(s): A41.9 - Sepsis, unspecified organism Code(s): A41.9 - Sepsis, unspecified organism Status: Acute Assessment and Plan: * Blood cultures positive * Awaiting sensitivities * Repeat cultures cooking * Continue with vanco for now (8) Bacteremia: Code(s): R78.81 - Bacteremia Status: Acute Assessment and Plan: * see above (9) Sciat
--- NOTE | 2022-10-25 11:54 | PM.DS ---
DS: Admitting Diagnosis Discharge Date 10/25/22 1030 Admitting Diagnosis Complicated UTI, Bacteremia, Sepsis, kidney stone with hydronephrosis DS: Discharge Diagnosis Discharge Diagnosis (1) UTI (urinary tract infection): Qualifiers: Urinary tract infection type: acute cystitis Hematuria presence: without hematuria Qualified Code(s): N30.00 - Acute cystitis without hematuria Code(s): N39.0 - Urinary tract infection, site not specified Status: Acute Assessment and Plan: Urine cultures positive for enterococcus Blood culture gram positive cocci Urine culture positive for Enterococcus and patient transition to vancomycin from Rocephin on 10/23/2022 Repeat blood cultures pending likely will need 1 days total of IV antibiotics (2) Hydronephrosis, left: Code(s): N13.30 - Unspecified hydronephrosis Status: Acute Assessment and Plan: Please see operative note from Dr. Hernandez Patient had cystoscopy left retrograde pyelogram left ureteral stent placement 4.8 Mozambican contour. Patient had retrograde pyelogram done that at the conclusion of the procedure could not determine location of the stone Repeat abdominal x-ray revealed 4 mm stone in the left kidney lower pole procedure is scheduled for November 02 (3) Left ureteral calculus: Code(s): N20.1 - Calculus of ureter Status: Acute Assessment and Plan: The patient will have a retrograde pyelogram to determine the placement of the kidney stone. Continue with IV fluids. Strain all urine. Continue with analgesia (4) Chronic a-fib: Code(s): I48.20 - Chronic atrial fibrillation, unspecified Status: Chronic Assessment and Plan: The patient is in sinus rhythm at this time. Continue with amiodarone and Eliquis. (5) Diabetes mellitus: Qualifiers: Diabetes mellitus type: type 2 Diabetes mellitus keno terminal operator insulin use: without keno terminal operator use Diabetes mellitus complication status: with other specified complication Qualified Code(s): E11.69 - Type 2 diabetes mellitus with other specified complication Code(s): E11.9 - Type 2 diabetes mellitus without complications Status: Acute Assessment and Plan: The patient has a history of gastric bypass and is no longer on any medication. Since her blood sugar was in the 200s. Will do Accu-Cheks AC and HS with sliding scale insulin and hemoglobin A1c 7.4. The patient stated that she was started on lisinopril to protect the kidneys. She denies having any hypertension. (6) Pure hypercholesterolemia: Code(s): E78.00 - Pure hypercholesterolemia, unspecified Status: Acute Assessment and Plan: Heart healthy diet. (7) Sepsis: Qualifiers: Sepsis type: sepsis due to unspecified organism Sepsis acute organ dysfunction status: without acute organ dysfunction Qualified Code(s): A41.9 - Sepsis, unspecified organism Code(s): A41.9 - Sepsis, unspecified organism Status: Acute Assessment and Plan: Blood cultures positive Awaiting sensitivities Repeat cultures cooking Continue with vanco for now (8) Bacteremia: Code(s): R78.81 - Bacteremia Status: Acute Assessment and Plan: see above (9) Sciatica: Qualifiers: Laterality: left Qualified Code(s): M54.32 - Sciatica, left side Code(s): M54.30 - Sciatica, unspecified side Status: Acute Assessment and Plan: Left sided Steroids ordered and given DS: Summary Hospital Course Hospital Course: Patient is a 59 year old female with a past medical history of kidney stone, hypertension, COPD who present To the ED with complaints of left flank pain. Urology was consulted. CT did show a 6-7 mm left renal stone. It also indicated that she did have some hydronephros
[2022-10-25 12:02] LABS: Glucose Point of Care 301 mg/dl (65-105)
[2022-10-25] MEDS: LINEZOLID 600 MG TABLET PO (12:49)
== END 2022-10-25 14:46 | disposition home or self-care (01) | DRG 660 ==
LOC: ANHED 16:02 → ANH2MED 16:25
PROVIDERS: Internal Medicine Critical Care Medicine; Nurse Practitioner; Urology; Admitting Provider Internal Medicine; Emergency Provider Nurse Practitioner Family; PCP Internal Medicine; Visit Provider Nurse Practitioner
PROC: 0T778DZ Dilation of Left Ureter with Intraluminal Device, Via Natural or Artificial Opening Endoscopic (ICD-10-PCS; CPT 52352; principal; 2022-10-21 17:00)
DX: N13.6 Pyonephrosis (principal); I48.20 Chronic atrial fibrillation, unspecified; E11.9 Type 2 diabetes mellitus without complications; E78.00 Pure hypercholesterolemia, unspecified; B95.2 Enterococcus as the cause of diseases classified elsewhere; M54.32 Sciatica, left side; M16.11 Unilateral primary osteoarthritis, right hip; M47.816 Spondylosis without myelopathy or radiculopathy, lumbar region; M17.11 Unilateral primary osteoarthritis, right knee; Z96.651 Presence of right artificial knee joint; Z79.82 Long term (current) use of aspirin; Z98.84 Bariatric surgery status; Z79.01 Long term (current) use of anticoagulants
CPT/HCPCS: 36415; 74018; 74176; 74420; 80048; 80053; 80202; 81001; 82948; 83036; 83605; 83735; 84443; 85025; 87040; 87077; 87086; 87147; 87181; 87186; 96365; 96375; 99285; A9270; C1758; C1769; C2617; G0378; J0690; J0696; J1170; J1815; J2250; J2270; J2405; J2704; J2930; J3010; J3370; J7030; J7050; J7120; Q9966

== ENCOUNTER 2022-10-29 08:43 | Outpatient (CLI) | payer MEDICARE, MEDICAID, SELFPAY ==
[2022-10-29 10:13] LABS: INR 1.4; Partial Thromboplastin Time 31.9 SECONDS (22.3-36.8); Prothrombin Time 17.5 Seconds (11.1-14.7)
== END 2022-10-29 08:44 | disposition home or self-care (01) ==
PROVIDERS: PCP Internal Medicine; Visit Provider Urology
DX: N20.1 Calculus of ureter (principal); Z01.818 Encounter for other preprocedural examination
CPT/HCPCS: 36415; 85610; 85730

== ENCOUNTER 2022-11-02 01:22 | Day surgery (SDC) | payer MEDICARE, MEDICAID, SELFPAY ==
--- NOTE | 2022-10-26 11:08 | PC.NURSE ---
Report to the Outpatient Waiting Room, entrance under the green pavilion located off [facility], at time _0630 on date _11/02/22 . Planned Procedure Time: __30 . Time changes happen often and if your time is changed the preop area will call you the afternoon before. - You and your visitor will be asked to self-screen and do not enter if you have any COVID symptoms. - A mask is optional within the hospital at this time. Patients may have clear liquids (water, carbonated beverages, clear teas, apple juice) until 3 hours prior to surgery with a maximum of 20 ounces. - No food from midnight until time of surgery - Infants may have breast milk until 4 hours before surgery, formula 6 hours prior to surgery. - Children will be allowed to drink immediately following surgery. If applicable, please bring a bottle or sippy cup to assist with drinking. Juice, water, soda, and popsicles are readily available. For infants on formula, please bring formula the day of surgery. Pacifiers are allowed. Take the following medications with a SIP of water the morning of surgery: __AMIODARONE,AND PREDNISONE DO NOT STOP ANY OF YOUR OTHER PRESCRIPTION MEDICATIONS PRIOR TO SURGERY ?EXCEPT THE FOLLOWING Medications to discontinue per physician __PT STATES HOLD ELIQUIS 2 DAYS PRE OP PER DR ONEAL.LAST DOSE 10/30/22 AND ALL VITAMINS/SUPPLEMENTS 3 DAYS PRE OP__.LAST DOSE 10/29/22 Please no make-up, nail pakistani, hairspray, perfume, deodorant, or body powder the day of surgery. No jewelry (including any body piercings) or valuables the day of surgery, leave them at home. Please take a shower or bath the night before, or the morning of, surgery with an antibacterial soap. Wear comfortable, loose fitting clothing. Children are encouraged to wear pajamas. - Jewelry must be removed prior to entering the operating room. Rings and piercings that are not removed may be cut off. - The hospital will not accept responsibility for valuables. - Please leave all valuables, including medications, at home the day of surgery. If you are going home after surgery, a licensed dump truck driver must drive you home. - NO public transportation without another adult if you receive anesthesia. - We recommend that an adult stay with you for 24 hours following discharge. - We also recommend that you do not drive, make important decision, drink alcoholic beverages, or take any drugs that were not prescribed by your health care provider for at least 24 hours after your discharge time. For Pediatric surgeries, we recommend two adults accompany the child home. Follow any additional instructions given to you from your surgeon. If you or anyone in your household have experienced Covid symptoms in the past week, please notify your surgeon or the nurse liaison at the phone number below for possible testing. Telephone instructions given to ___PATIENT and asked if any additional questions and then verbalized understanding. Patient advised to call surgeon office or pre surgery nurse liaison [phone] if any additional questions.
[2022-10-26 11:43] VITALS: BMI 38.9
[2022-11-02] VITALS (7 sets, daily range): BP systolic 111–146; BP diastolic 50–83; PULSE 64–85; RESP 16–20; TEMP 36.6; O2SAT 97–100; BMI 38.8
--- NOTE | ~2022-11-02 | XR_ITS ---
Supine and upright views of the abdomen Clinical history: Left-sided stone COMPARISON: 10/22/2022 Findings: Bowel gas pattern is nonspecific. No evidence for obstruction or free air. Left ureteral st ent remains in place. Left lower pole renal stone is unchanged. Presumed pelvic phleboliths are uncha nged. Osseous structures are intact. Impression: Left ureteral stent and left lower pole renal stone, unchanged. Reviewed, dictated and finalized at location M. Impression: Left ureteral stent and left lower pole renal stone, unchanged.
--- NOTE | 2022-11-02 07:33 | WPDHPUPDATE1 ---
History and Physical Update Update Date/Time: 11/02/22 07:33 History and Physical has been reviewed, including an updated exam of the patient. There are NO changes in the patient's condition. Risks, benefits, and alternatives have been discussed and questions answered. Patient agrees to proceed with procedure. Proceed with left renal eswl
--- NOTE | 2022-11-02 07:34 | WPDHPUPDATE1 ---
History and Physical Update Update Date/Time: 11/02/22 07:34 History and Physical has been reviewed, including an updated exam of the patient. There are NO changes in the patient's condition. Risks, benefits, and alternatives have been discussed and questions answered. Patient agrees to proceed with procedure. proceed with left renal eswl
--- NOTE | 2022-11-02 07:36 | SUR.PREOP ---
0736- Notified Dr. Hernandez patient's urine culture from 10/29/2022 not resulted at this time. Per Dr. Hernandez will proceed with procedure and no additional orders needed.
--- NOTE | 2022-11-02 07:38 | WPDANESEPPF ---
Anes - Initial Pre Proc Eval Procedure: Operation Date: 11/02/22 08:30 Proposed Procedures p Left Extracorporeal Shock Wave Lithotripsy - Gilbert Hernandez MD Date/Time: 11/02/22 07:38 Surgeon: Gilbert Hernandez MD Pre Op Diagnosis: left renal stone Patient Data Age: 67 Gender: F Height: 1.6 m Weight: 99.8 kg Allergies Allergy/AdvReac Type Severity Reaction Status Date / Time No Known Allergies Allergy Verified 10/26/22 11:02 Home Medications Medication Instructions Recorded Confirmed Type ascorbate calcium (vitamin C) 500 500 mg PO QAM 03/12/19 10/26/22 History mg tablet cholecalciferol (vitamin D3) 25 1,000 unit PO QAM 03/12/19 10/26/22 History mcg (1,000 unit) capsule cinnamon bark 500 mg capsule 1,000 mg PO QAM 03/12/19 10/26/22 History (Cinnamon) apple cider vinegar 600 mg capsule 1,200 mg PO QAM 07/07/21 10/26/22 History ascorbic acid 7.5 mg-vit E 7.5 1 tablet PO QAM 07/07/21 10/26/22 History unit-biotin 1,250 mcg chewable tablet (Hair,Skin,Nails with Biotin) zinc 50 mg tablet 50 mg PO QAM 07/07/21 10/26/22 History albuterol sulfate 90 mcg/actuation 2 inh inhalation Q4-6H PRN 09/06/21 10/26/22 Rx aerosol inhaler (Ventolin HFA) shortness of breath or wheezing #18 grams vitamin B complex (B 1 tablet PO DAILY 12/20/21 10/26/22 History Complex-Vitamin B12 tablet) lisinopril 5 mg tablet 5 mg PO QAM #90 tabs 05/23/22 10/26/22 Rx omeprazole 20 mg capsule,delayed 20 mg PO QAM #90 caps 05/23/22 10/26/22 Rx release budesonide 0.25 mg/2 mL suspension See Rx Instructions .Route 06/25/22 10/26/22 Rx for nebulization .COMPLEX #180 mL blood sugar diagnostic (OneTouch 08/14/22 10/21/22 History Ultra Test strips) amiodarone 200 mg tablet (Pacerone) 200 mg PO DAILY@0800 #30 tabs 08/17/22 10/26/22 Rx apixaban 5 mg tablet (Eliquis) 5 mg PO Q12HR #60 tabs 08/17/22 10/26/22 Rx fluticasone propionate 50 2 spray intranasal QAM #30 grams 08/17/22 10/26/22 Rx mcg/actuation nasal spray,suspension tramadol 50 mg tablet 50 mg PO Q6H PRN Pain (Scale Score 10/21/22 10/26/22 History 4-6) linezolid 600 mg tablet 600 mg PO Q12HR #24 tabs 10/25/22 10/26/22 Rx oxybutynin chloride 5 mg tablet 5 mg PO TID PRN Spasms #30 tabs 10/25/22 10/26/22 Rx prednisone 20 mg tablet See Rx Instructions .Route 10/25/22 10/26/22 Rx .COMPLEX #15 tabs Patient hx anesthesia problems: none Family hx anesthesia problems: none Results Review: All pre-operative results and documents have been reviewed as part of the pre-operative evaluation. [facility] Past Medical History Medical History (Updated 10/24/22 @ 14:10 by XUAN Day) Arthritis Arthritis of right hip Arthritis, lumbar spine BMI 39.0-39.9,adult CAP (community acquired pneumonia) Chronic a-fib Diabetes mellitus Last charted A1C 7.1 from october of 2018, Pt states her most recent A1c was 6.3 Hallux valgus (acquired), right foot Hammertoe of right foot Osteoarthritis of right knee Pneumonia Seasonal allergic rhinitis Synovial cyst of ankle and foot region Surgical History Surgical History (Updated 10/21/22 @ 19:58 by Poonam Mcqueen NP) H/O section X2 H/O foot surgery H/O rotator cuff surgery (~03/08/16) Right times three History of arthroscopy of right knee meniscectomy 2011 History of hand surgery (~1988) Right carpal tunnel History of hand surgery (~2007) Left carpal tunnel History of hysterectomy (~1996) History of knee replacement (~08/06/13) Right S/P gastric sleeve procedure S/P tonsillectomy Family History Family History Father Cerebrovascular accident Patient's father is Family history of arthritis Heart disease Hypertension Mother Family history of congestive heart failure Family history of obesity Family history of chronic obstructive pulmonary disease Family history of heart disease in male fa
[2022-11-02] MEDS: LACTATED RINGERS 1,000 ML 30 ML IV CONT (07:50)
[2022-11-02 08:05] LABS: Prothrombin Time 13.6 Seconds (11.1-14.7)
[2022-11-02] MEDS: ceFAZolin 2 GM/D5W 50 ML 2 GM/50 ML BAG IVPB (08:36)
--- NOTE | 2022-11-02 08:53 | W.PM.PROC2 ---
Procedure Note - Detailed Date of Procedure 11/02/22 Pre-op Diagnosis left renal stone Post-op Diagnosis Same Procedure Performed Lithotripsy of left renal calculus Surgeon Gilbert Hernandez MD Anesthesia General Description of Procedure Patient is taken to the operative suite correctly identified. Once anesthesia obtained the stone was localized in both planes. The stone appeared to fragment easily and was difficult to see after 1100 shocks. The procedure was terminated at 1500 shocks as there was no further stone visible. Patient tolerated the procedure well without complications and was taken recovery stable condition. She will follow-up in 7-10 days with KUB and most likely stent removal at that time. This completes dictation. Please send a copy of this op note to my office Drains No Packing No Pathology None sent Complications No immediate complications Condition Stable Disposition PACU
== END 2022-11-02 10:37 | disposition home or self-care (01) ==
PROVIDERS: PCP Internal Medicine; Visit Provider Urology
PROC: (CPT 50590; principal; 2022-11-02 08:30)
DX: N20.0 Calculus of kidney (principal); I48.20 Chronic atrial fibrillation, unspecified; E11.9 Type 2 diabetes mellitus without complications; Z79.51 Long term (current) use of inhaled steroids; Z79.01 Long term (current) use of anticoagulants; Z98.84 Bariatric surgery status; E66.9 Obesity, unspecified; Z68.38 Body mass index [BMI] 38.0-38.9, adult
CPT/HCPCS: 50590; 36415; 74018; 85610; 85730; J0690; J1100; J2250; J2405; J2704; J3010; J7120

== ENCOUNTER 2022-11-06 12:48 | Emergency (ER) | payer MEDICARE, MEDICAID, SELFPAY ==
--- NOTE | ~2022-11-06 | CT_ITS ---
EXAMINATION: CT abdomen pelvis wo con DATE: 11/06/2022 15:35 INDICATION: Right flank pain. TECHNIQUE: Computed tomography (CT) of the abdomen and pelvis was performed without intravenous contr ast. Automated exposure control and iterative reconstruction technique were employed. The dose-length product was 711.15 mGy-cm. COMPARISON: CT abdomen and pelvis 10/21/2022 FINDINGS: The visualized portions of the lung bases demonstrate mild atelectasis. A calcified right l maikel nodule and calcified right hilar lymph nodes are consistent with old granulomatous disease. No pl eural effusion. The heart size is normal. No pericardial effusion. There are changes of gastric sleev e procedure. There is a small sliding hiatal hernia. Calcifications in the liver and spleen are consi stent with old granulomatous disease. The gallbladder, pancreas, and adrenal glands are normal. There are cysts in right kidney measuring up to 3.6 cm. There are 3 stones in left kidney measuring up to 4 mm. There is mild left hydronephrosis. There is a left internal ureteral stent in expected position . There is gas in the bladder lumen and left-sided renal collecting system. There is a stone in a henri dder diverticulum on the left. There is diverticulosis of the colon without evidence of diverticuliti s. The appendix is normal. There are no dilated loops of bowel. There are no pathologically enlarged lymph nodes. There is no free intraperitoneal fluid. There is severe lumbar spondylosis. Lumbar levos coliosis is noted. IMPRESSION: 1. Nonobstructing left kidney stones. 2. Mild left hydronephrosis with left internal ureteral stent in expected position. 3. Stone in a left-sided bladder diverticulum. 4. Small sliding hiatal hernia. Changes of gastric sleeve procedure. Reviewed, dictated and finalized at location E. IMPRESSION: 1. Nonobstructing left kidney stones. 2. Mild left hydronephrosis with left internal ureteral stent in expected posit ion. 3. Stone in a left-sided bladder diverticulum. 4. Small sliding hiatal hernia. Changes of gastric sleeve procedure.
[2022-11-06 13:00] VITALS: BP 120/65; PULSE 82; RESP 18; TEMP 36.1; O2SAT 100
[2022-11-06 14:06] LABS: Basophils Absolute Auto 0.1 K/mm3 (0.0-0.1); Basophils Percent Auto 0.5 % (0.2-1.2); Eosinophils Absolute Auto 0.2 K/mm3 (0-0.3); Eosinophils Percent Auto 1.3 % (0-4.4); Hemoglobin 12.5 g/dL (12.0-15.0); Immature Granulocyte Absolute 0.08 K/mm3 (0.00-0.031); Immature Granulocyte Percent A 0.7 % (0-0.5); Lymphocytes Absolute Auto 1.18 K/mm3 (0.9-3.2); Lymphocytes Percent Auto 10.2 % (18.3-44.2); Mean Corpuscular HGB Conc 32.1 g/dl (32-36); Mean Corpuscular Hemoglobin 28.9 pg (26-34); Mean Corpuscular Volume 90.1 fl (80-100); Mean Platelet Volume 9.3 fl (7.4-10.4); Monocytes Absolute Auto 0.6 K/mm3 (0.1-0.6); Monocytes Percent Auto 5.5 % (2.6-8.5); Neutrophils Absolute Auto 9.5 K/mm3 (1.3-6.7); Neutrophils Percent Auto 81.8 % (45.5-73.1); Platelet Count Result 381 k/mm3 (150-375); Red Blood Count 4.33 M/mm3 (4.2-5.4); Red Cell Distribution Width 14.2 % (11.5-14.5); White Blood Count 11.6 K/mm3 (4.5-10.0)
[2022-11-06 14:29] VITALS: BP 125/73; PULSE 73; RESP 12; O2SAT 96
[2022-11-06 14:30] LABS: Alanine Aminotransferase 29 U/L (6-35); Albumin Level 3.9 g/dL (3.5-5.1); Alkaline Phosphatase 110 U/L (38-126); Anion Gap 5 mmol/L (8-16); Aspartate Amino Transferase 27 U/L (14-36); Bilirubin,Total 0.4 mg/dL (0.2-1.3); Blood Urea Nitrogen 28 mg/dL (7-17); Calcium 9.5 mg/dL (8.4-10.2); Carbon Dioxide 29 mmol/L (22-30); Chloride 97 mmol/L (98-107); Estimated CRCL calculation 53 ml/min; Estimated Glomerular Filt Rate 55; Glucose 319 mg/dL (65-110); Lipase 81 U/L (23-300); Potassium 4.7 mmol/L (3.4-5.0); Sodium 131 mmol/L (137-145)
[2022-11-06 14:43] LABS: Budding Yeast Urine Present /hpf; Non Pathogenic Casts 0-2; RBC Urine >100 /hpf (0-2); Squamous Epithelial Cell Urine Occasional /hpf (Few); WBC Urine >100 /hpf
[2022-11-06 14:45] LABS: Appearance Urine Turbid (Clear); Bacteria Urine 1+ /hpf; Color Urine Dark Red (Yellow)
[2022-11-06 14:49] LABS: Add Urine Microscopic? YES
--- NOTE | 2022-11-06 15:26 | PC.NURSE ---
Pt to CT scan via stretcher at this time.
[2022-11-06 15:27] VITALS: BP 123/86; PULSE 77; RESP 17; O2SAT 98
--- NOTE | 2022-11-06 16:11 | ED.ABDPAIN ---
HPI - Abdominal Pain General Chief Complaint: Abdominal Pain Stated Complaint: R SIDED ABD PAIN,NAUSEA Time Seen by Provider: 11/06/22 14:51 History of Present Illness HPI narrative: This is a 61-year-old female with past history of nephrolithiasis status post left-sided stent and lithotripsy, who presents to the emergency department complaining of right upper quadrant abdominal and flank pain beginning today. The patient states she was in usual of health when she had sudden onset right-sided 10/10 cramping and sharp pain similar to that felt with previous kidney stones. She denied fevers, chills, vomiting or other pain Related Data Home Medications Medication Instructions Recorded Confirmed ascorbate calcium (vitamin C) 500 500 mg PO QAM 03/12/19 11/02/22 mg tablet cholecalciferol (vitamin D3) 25 1,000 unit PO QAM 03/12/19 11/02/22 mcg (1,000 unit) capsule cinnamon bark 500 mg capsule 1,000 mg PO QAM 03/12/19 11/02/22 (Cinnamon) apple cider vinegar 600 mg capsule 1,200 mg PO QAM 07/07/21 11/02/22 ascorbic acid 7.5 mg-vit E 7.5 1 tablet PO QAM 07/07/21 11/02/22 unit-biotin 1,250 mcg chewable tablet (Hair,Skin,Nails with Biotin) zinc 50 mg tablet 50 mg PO QAM 07/07/21 11/02/22 vitamin B complex (B 1 tablet PO DAILY 12/20/21 11/02/22 Complex-Vitamin B12 tablet) blood sugar diagnostic (OneTouch 08/14/22 10/21/22 Ultra Test strips) tramadol 50 mg tablet 50 mg PO Q6H PRN Pain (Scale Score 10/21/22 10/26/22 4-6) Allergies Allergy/AdvReac Type Severity Reaction Status Date / Time No Known Allergies Allergy Verified 11/06/22 14:28 Review of Systems Review of Systems: CONSTITUTIONAL: Denies fever, chills, or sweats. CARDIOVASCULAR: Denies chest pain, palpitations, or edema. RESPIRATORY: Denies cough or dyspnea. GASTROINTESTINAL: Right upper quadrant abdominal pain and flank pain, nausea denies vomiting, or diarrhea. GENITOURINARY: Denies dysuria or hematuria. SKIN: Denies rash or itching. MUSCULOSKELETAL: Denies back pain, joint pain, or myalgia. NEUROLOGIC: Denies headache, numbness, dizziness, or weakness. PSYCHIATRIC: Denies anxiety or depression. [facility] Past Medical History Medical History Arthritis Arthritis of right hip Arthritis, lumbar spine BMI 39.0-39.9,adult CAP (community acquired pneumonia) Chronic a-fib Diabetes mellitus Last charted A1C 7.1 from october of 2018, Pt states her most recent A1c was 6.3 Hallux valgus (acquired), right foot Hammertoe of right foot Osteoarthritis of right knee Pneumonia Seasonal allergic rhinitis Synovial cyst of ankle and foot region Surgical History Surgical History H/O section X2 H/O foot surgery H/O rotator cuff surgery (~03/08/16) Right times three History of arthroscopy of right knee meniscectomy 2011 History of hand surgery (~1988) Right carpal tunnel History of hand surgery (~2007) Left carpal tunnel History of hysterectomy (~1996) History of knee replacement (~08/06/13) Right S/P gastric sleeve procedure S/P tonsillectomy Family History Family History Father Cerebrovascular accident Patient's father is Family history of arthritis Heart disease Hypertension Mother Family history of congestive heart failure Family history of obesity Family history of chronic obstructive pulmonary disease Family history of heart disease in male family member before age 55 Sibling Diabetes mellitus Hypertension Heart disease Other Arthritis Social History Social History Social History: The patient is . She lives with her oldest daughter. She has 2 children. she is retired from [employer] and [employer] ?. She is a lifelong nonsmoker. Code status full code Smoking st
[2022-11-06 16:27] VITALS: BP 112/76; PULSE 76; RESP 16; O2SAT 96
== END 2022-11-06 16:29 | disposition home or self-care (01) ==
PROVIDERS: Emergency Provider Preventive Medicine Aerospace Medicine; PCP Internal Medicine
DX: N20.0 Calculus of kidney (principal); R10.11 Right upper quadrant pain; M19.90 Unspecified osteoarthritis, unspecified site; I48.91 Unspecified atrial fibrillation; E11.9 Type 2 diabetes mellitus without complications
CPT/HCPCS: 36415; 74176; 80053; 81001; 83690; 85025; 87086; 87088; 87106; 99284

== ENCOUNTER 2022-11-21 08:22 | Outpatient (CLI) | payer MEDICARE, MEDICAID, SELFPAY ==
--- NOTE | ~2022-11-21 | XR_ITS ---
Supine and upright views of the abdomen Clinical history: Renal stone COMPARISON: 11/02/2022 Findings: Bowel gas pattern is nonspecific. No evidence for obstruction or free air. Left ureteral st ent remains in place. Stable 7 mm calcification the left pelvis. Stable suspected 5 mm stone at the m id to distal left ureter. Small left lower pole renal stones are again present. Osseous structures ar e intact. Impression: No change from prior exam. Left ureteral stent with probable left lower pole renal stones and left mid to distal ureteral stone. Reviewed, dictated and finalized at location M. Impression: No change from prior exam. Left ureteral stent with probable left lower pole renal stones and left mid to distal ureteral stone.
== END 2022-11-21 08:23 | disposition home or self-care (01) ==
LOC: ANHIMG 08:26
PROVIDERS: PCP Internal Medicine; Visit Provider Urology
DX: N20.0 Calculus of kidney (principal)
CPT/HCPCS: 74018

== ENCOUNTER 2022-11-26 09:48 | Outpatient (CLI) | payer MEDICARE, MEDICAID, SELFPAY ==
[2022-11-26 10:31] LABS: Anion Gap 6 mmol/L (8-16); Blood Urea Nitrogen 20 mg/dL (7-17); Calcium 9.1 mg/dL (8.4-10.2); Carbon Dioxide 29 mmol/L (22-30); Chloride 105 mmol/L (98-107); Estimated Glomerular Filt Rate > 60; Glucose 151 mg/dL (65-110); Potassium 4.2 mmol/L (3.4-5.0); Sodium 140 mmol/L (137-145)
== END 2022-11-26 09:49 | disposition home or self-care (01) ==
LOC: ANHSURGERY 09:53
PROVIDERS: Anesthesiology; PCP Internal Medicine; Visit Provider Urology
DX: E11.9 Type 2 diabetes mellitus without complications (principal); Z01.818 Encounter for other preprocedural examination
CPT/HCPCS: 36415; 80048

== ENCOUNTER 2022-11-30 02:24 | Day surgery (SDC) | payer MEDICARE, MEDICAID, SELFPAY ==
--- NOTE | 2022-11-26 09:07 | PC.NURSE ---
Report to the Outpatient Waiting Room, entrance under the green pavilion located off [facility], at time __0830 on date __11/30/22 . Planned Procedure Time: __1030 . Time changes happen often and if your time is changed the preop area will call you the afternoon before. - You and your visitor will be asked to self-screen and do not enter if you have any COVID symptoms. - A mask is optional within the hospital at this time. Patients may have clear liquids (water, carbonated beverages, clear teas, apple juice) until 3 hours prior to surgery with a maximum of 20 ounces. - No food from midnight until time of surgery - Infants may have breast milk until 4 hours before surgery, formula 6 hours prior to surgery. - Children will be allowed to drink immediately following surgery. If applicable, please bring a bottle or sippy cup to assist with drinking. Juice, water, soda, and popsicles are readily available. For infants on formula, please bring formula the day of surgery. Pacifiers are allowed. Take the following medications with a SIP of water the morning of surgery: _AMIODARONE, DO NOT STOP ANY OF YOUR OTHER PRESCRIPTION MEDICATIONS PRIOR TO SURGERY ?EXCEPT THE FOLLOWING Medications to discontinue per physician _PT STATES HOLD __ELIQUIS_2 DAYS PRE OP PER DR ONEAL.LAST DOSE 11/27/22 .STATES ALL VITAMINS AND SUPPLEMENTS PT STATES LAST DOSE 11/23/22 Please no make-up, nail ghanaian, hairspray, perfume, deodorant, or body powder the day of surgery. No jewelry (including any body piercings) or valuables the day of surgery, leave them at home. Please take a shower or bath the night before, or the morning of, surgery with an antibacterial soap. Wear comfortable, loose fitting clothing. Children are encouraged to wear pajamas. - Jewelry must be removed prior to entering the operating room. Rings and piercings that are not removed may be cut off. - The hospital will not accept responsibility for valuables. - Please leave all valuables, including medications, at home the day of surgery. If you are going home after surgery, a licensed dedicated truck driver must drive you home. - NO public transportation without another adult if you receive anesthesia. - We recommend that an adult stay with you for 24 hours following discharge. - We also recommend that you do not drive, make important decision, drink alcoholic beverages, or take any drugs that were not prescribed by your health care provider for at least 24 hours after your discharge time. For Pediatric surgeries, we recommend two adults accompany the child home. Follow any additional instructions given to you from your surgeon. If you or anyone in your household have experienced Covid symptoms in the past week, please notify your surgeon or the nurse liaison at the phone number below for possible testing. Telephone instructions given to __PATIENT and asked if any additional questions and then verbalized understanding. Patient advised to call surgeon office or pre surgery nurse liaison [phone] if any additional questions.
[2022-11-26 09:31] VITALS: BMI 38.1
[2022-11-30] VITALS (7 sets, daily range): BP systolic 84–135; BP diastolic 46–60; PULSE 77–89; RESP 14–20; TEMP 36.6–37; O2SAT 94–100
--- NOTE | ~2022-11-30 | XR_ITS ---
EXAMINATION: XR retrograde pyelo w/stent LT DATE: 11/30/2022 11:59 INDICATION: Left ureteral stone. TECHNIQUE: 4 intraoperative fluoroscopic views of the abdomen and pelvis were obtained. I was not pre sent. Fluoroscopy exposure time was 25 seconds. COMPARISON: Abdomen radiograph 11/30/2022 FINDINGS: The left-sided retrograde pyelogram demonstrates mild hydronephrosis. The final images demo nstrate a left internal ureteral stent in expected position. There is a 10 mm stone in a left-sided b ladder diverticulum. IMPRESSION: 1. Left internal ureteral stent in expected position. 2. Stone in a left-sided bladder diverticulum. Reviewed, dictated and finalized at location B.
--- NOTE | ~2022-11-30 | XR_ITS ---
EXAMINATION: XR abdomen/kub 1V DATE: 11/30/2022 09:01 INDICATION: Kidney stone. TECHNIQUE: A supine view of the abdomen on 2 radiographs was obtained. COMPARISON: Abdomen radiograph 11/21/2022, CT abdomen and pelvis 11/06/2022 FINDINGS: There are no dilated loops of bowel. There is a left internal ureteral stent in expected po sition. There is a 4 mm stone in left kidney. There is a 3 mm stone in proximal left ureter at L4. Th ere is a 10 mm stone in a left-sided bladder diverticulum. IMPRESSION: 1. 3 mm stone in left ureter at L4. Left internal ureteral stent in expected position. 2. 4 mm left kidney stone. 3. 10 mm stone in a left-sided bladder diverticulum. Reviewed, dictated and finalized at location B. IMPRESSION: 1. 3 mm stone in left ureter at L4. Left internal ureteral stent in expected po sition. 2. 4 mm left kidney stone. 3. 10 mm stone in a left-sided bladder diverticulum.
--- NOTE | 2022-11-30 09:10 | WPDHPUPDATE1 ---
History and Physical Update Update Date/Time: 11/30/22 09:10 History and Physical has been reviewed, including an updated exam of the patient. There are NO changes in the patient's condition. Risks, benefits, and alternatives have been discussed and questions answered. Patient agrees to proceed with procedure. Proceed with cystoscopy, left retrograde pyelogram, left ureteroscopy with stone extraction, possible laser, stent exchange
[2022-11-30 09:33] LABS: Glucose Point of Care 226 mg/dl (65-105)
[2022-11-30 10:27] LABS: INR 1.1; Prothrombin Time 14.5 Seconds (11.1-14.7)
[2022-11-30 10:28] LABS: Partial Thromboplastin Time 30.9 SECONDS (22.3-36.8)
--- NOTE | 2022-11-30 10:35 | WPDANESEPPF ---
Anes - Initial Pre Proc Eval Procedure: Operation Date: 11/30/22 10:30 Proposed Procedures p Cystoscopy, Left Ureteroscopy, Left Stone Extraction, Possible Left Retrograde Pyelogram, Possible Left Stent Exchange, Possible Holmium Laser Lithotripsy - Gilbert Hernandez MD Date/Time: 11/30/22 10:35 Surgeon: Gilbert Hernandez MD Pre Op Diagnosis: Lt Ureteral Stone Patient Data Age: 67 Gender: F Height: 1.6 m Weight: 99.5 kg Last Vital Signs Temp 36.6 C 11/30/22 09:49 Pulse 89 11/30/22 09:49 Resp 14 11/30/22 09:49 BP 129/47 L 11/30/22 09:49 Pulse Ox 98 11/30/22 09:49 O2 Del Method Room Air 11/30/22 09:49 Allergies Allergy/AdvReac Type Severity Reaction Status Date / Time No Known Allergies Allergy Verified 11/30/22 09:53 Home Medications Medication Instructions Recorded Confirmed Type ascorbate calcium (vitamin C) 500 500 mg PO QAM 03/12/19 11/26/22 History mg tablet cholecalciferol (vitamin D3) 25 1,000 unit PO QAM 03/12/19 11/26/22 History mcg (1,000 unit) capsule cinnamon bark 500 mg capsule 1,000 mg PO QAM 03/12/19 11/26/22 History (Cinnamon) apple cider vinegar 600 mg capsule 1,200 mg PO QAM 07/07/21 11/26/22 History ascorbic acid 7.5 mg-vit E 7.5 1 tablet PO QAM 07/07/21 11/26/22 History unit-biotin 1,250 mcg chewable tablet (Hair,Skin,Nails with Biotin) zinc 50 mg tablet 50 mg PO QAM 07/07/21 11/26/22 History albuterol sulfate 90 mcg/actuation 2 inh inhalation Q4-6H PRN 09/06/21 11/26/22 Rx aerosol inhaler (Ventolin HFA) shortness of breath or wheezing #18 grams vitamin B complex (B 1 tablet PO DAILY 12/20/21 11/26/22 History Complex-Vitamin B12 tablet) budesonide 0.25 mg/2 mL suspension See Rx Instructions .Route 06/25/22 11/26/22 Rx for nebulization .COMPLEX #180 mL blood sugar diagnostic (OneTouch 08/14/22 11/07/22 History Ultra Test strips) amiodarone 200 mg tablet (Pacerone) 200 mg PO DAILY@0800 #30 tabs 08/17/22 11/26/22 Rx apixaban 5 mg tablet (Eliquis) 5 mg PO Q12HR #60 tabs 08/17/22 11/26/22 Rx fluticasone propionate 50 2 spray intranasal QAM #30 grams 08/17/22 11/26/22 Rx mcg/actuation nasal spray,suspension tramadol 50 mg tablet 50 mg PO Q6H PRN Pain (Scale Score 10/21/22 11/26/22 History 4-6) metformin 500 mg tablet 500 mg PO DAILY #90 tabs 11/07/22 11/26/22 Rx clotrimazole-betamethasone 1 1 applic topical BID #45 grams 11/12/22 11/26/22 Rx %-0.05 % topical cream lisinopril 5 mg tablet 5 mg PO QAM #90 tabs 11/15/22 11/26/22 Rx omeprazole 20 mg capsule,delayed 20 mg PO QAM #90 caps 11/15/22 11/26/22 Rx release ciprofloxacin HCl 500 mg tablet 500 mg PO BID 11/26/22 11/26/22 History Laboratory Tests 11/30/22 11/30/22 11/30/22 09:29 10:10 10:10 PT 14.5 Seconds Cancelled (11.1-14.7) INR 1.1 APTT POC Capillary Glucose 226 H mg/dl (65-105) 11/30/22 10:10 PT INR Cancelled APTT 30.9 SECONDS (22.3-36.8) POC Capillary Glucose Patient hx anesthesia problems: none Family hx anesthesia problems: none Results Review: All pre-operative results and documents have been reviewed as part of the pre-operative evaluation. [facility] Past Medical History Medical History Arthritis Arthritis of right hip Arthritis, lumbar spine BMI 39.0-39.9,adult CAP (community acquired pneumonia) Chronic a-fib Diabetes mellitus Last charted A1C 7.1 from october of 2018, Pt states her most recent A1c was 6.3 Hallux valgus (acquired), right foot Hammertoe of right foot Osteoarthritis of right knee Pneumonia Seasonal allergic rhinitis Synovial cyst of ankle and foot region Surgical History Surgical History H/O section X2 H/O foot surgery H/O rotator cuff surgery (~03/08/16) Right times three History of arthroscopy of ri
[2022-11-30] MEDS: ceFAZolin 2 GM/D5W 50 ML 2 GM/50 ML BAG IVPB (11:01)
--- NOTE | 2022-11-30 11:33 | SUR.OPER ---
urine culture given to LOR Bergeron. Received in by Alexa at [id number]
[2022-11-30] MEDS: LIDOCAINE HCL 2% GEL UROJET 10 ML PKG MUCOUS MEM (11:48)
--- NOTE | 2022-11-30 11:58 | P.OP_ITS ---
Procedure Note - Detailed Date of Procedure 11/30/22 Pre-op Diagnosis Lt Ureteral Stone Post-op Diagnosis Same (Left renal calculus, left ureteral calculus, 1 cm bladder stone in bladder diverticulum) Procedure Performed Cystoscopy, left ureteroscopy with stone extraction of ureteral and renal calculus, left retrograde pyelogram, left ureteral stent exchange 4.8 Citizen Of [place] contour, holmium laser of 1 cm bladder stone in bladder diverticulum Surgeon Gilbert Hernandez MD Anesthesia General Description of Procedure Patient is taken to the operative suite correctly identified. Once anesthesia was obtained she was placed in dorsal lithotomy position and prepped and draped usual sterile fashion. Twenty-two Citizen [place] scope was inserted the bladder. The stent was grasped and brought out to the meatus. A guidewire was inserted through the stent. Rigid ureteral scope was then inserted into the left ureteral orifice. A 4-5 mm stone was seen in the mid to proximal ureter. Using an escape basket this was retrieved. A mini flexible ureteral scope was then inserted into the kidney. The urine was somewhat cloudy and retrieve some specimen sent for culture. A left renal stone was also visualized and grasped with an escape basket and retrieved. Pyelogram was then performed to confirm placement of the stent. 4.8 [place] contour stent was placed with proximal end coiled renal pelvis and the distal in the bladder. It was noted that she had a diverticulum on the left side of the bladder which contain 1 cm stone. Using a 200 micron fiber we lasered the stone and retrieve the pieces. 2% viscous lidocaine was inserted into the urethra. Patient is taken recovery room in stable condition. She will follow-up in a week's time for stent. This completes dictation. Please send a copy of this op to my office Drains Yes Packing No Pathology Yes Complications No immediate complications Condition Stable Disposition PACU
[2022-11-30] MEDS: LACTATED RINGERS 1,000 ML 30 ML IV CONT ×2 (12:06)
[2022-11-30 12:40] LABS: Glucose Point of Care 177 mg/dl (65-105)
== END 2022-11-30 13:45 | disposition home or self-care (01) ==
PROVIDERS: PCP Internal Medicine; Visit Provider Urology
PROC: (CPT 52352; principal; 2022-11-30 10:30)
DX: N13.2 Hydronephrosis with renal and ureteral calculous obstruction (principal); N21.0 Calculus in bladder; I25.10 Atherosclerotic heart disease of native coronary artery without angina pectoris; I48.20 Chronic atrial fibrillation, unspecified; E11.9 Type 2 diabetes mellitus without complications; Z79.51 Long term (current) use of inhaled steroids; Z79.01 Long term (current) use of anticoagulants; Z79.84 Long term (current) use of oral hypoglycemic drugs; Z98.84 Bariatric surgery status; E66.9 Obesity, unspecified; Z68.38 Body mass index [BMI] 38.0-38.9, adult
CPT/HCPCS: 52332; 52352; 36415; 74018; 74420; 80048; 82365; 82948; 85610; 85730; 87086; 87088; 87106; 88300; C1769; C2617; J0690; J1100; J2250; J2371; J2405; J2704; J3010; J7120; Q9966

== ENCOUNTER 2022-12-10 17:09 | Outpatient (CLI) | payer MEDICARE, MEDICAID, SELFPAY ==
--- NOTE | ~2022-12-10 | XR_ITS ---
EXAMINATION: XR abdomen/kub 1V DATE: 12/10/2022 17:30 INDICATION: Left-sided calcium kidney stone. TECHNIQUE: A supine view of the abdomen on 2 radiographs was obtained. COMPARISON: Abdomen radiographs 11/30/2022, CT abdomen and pelvis 11/06/2022 FINDINGS: There are no dilated loops of bowel. There is a small volume of stool in the colon. There i s a left internal ureteral stent in expected position. There are two 3 mm stones in left kidney. Ther e are phleboliths in the pelvis. IMPRESSION: 1. Two 3 mm stones in left kidney. 2. Left internal ureteral stent in expected position. Reviewed, dictated and finalized at location A.
== END 2022-12-10 17:10 | disposition home or self-care (01) ==
LOC: ANHIMG 17:11
PROVIDERS: PCP Internal Medicine; Visit Provider Urology
DX: N20.0 Calculus of kidney (principal)
CPT/HCPCS: 74018

== ENCOUNTER 2023-02-06 06:47 | Outpatient (CLI) | payer MEDICARE, MEDICAID, SELFPAY ==
[2023-02-06 07:29] LABS: Basophils Absolute Auto 0.1 K/mm3 (0.0-0.1); Basophils Percent Auto 0.8 % (0.2-1.2); Eosinophils Absolute Auto 0.4 K/mm3 (0-0.3); Eosinophils Percent Auto 6.5 % (0-4.4); Hematocrit 42.1 % (37.0-47.0); Hemoglobin 13.5 g/dL (12.0-15.0); Immature Granulocyte Absolute 0.01 K/mm3 (0.00-0.031); Immature Granulocyte Percent A 0.2 % (0-0.5); Lymphocytes Absolute Auto 1.47 K/mm3 (0.9-3.2); Lymphocytes Percent Auto 23.3 % (18.3-44.2); Mean Corpuscular HGB Conc 32.1 g/dl (32-36); Mean Corpuscular Hemoglobin 29.8 pg (26-34); Mean Corpuscular Volume 92.9 fl (80-100); Mean Platelet Volume 10.4 fl (7.4-10.4); Monocytes Absolute Auto 0.6 K/mm3 (0.1-0.6); Monocytes Percent Auto 9.2 % (2.6-8.5); Neutrophils Absolute Auto 3.8 K/mm3 (1.3-6.7); Platelet Count Result 231 k/mm3 (150-375); Red Blood Count 4.53 M/mm3 (4.2-5.4); Red Cell Distribution Width 13.7 % (11.5-14.5); White Blood Count 6.3 K/mm3 (4.5-10.0)
[2023-02-06 07:41] LABS: Alanine Aminotransferase 19 U/L (6-35); Albumin Level 4.2 g/dL (3.5-5.1); Alkaline Phosphatase 62 U/L (38-126); Anion Gap 8 mmol/L (8-16); Aspartate Amino Transferase 23 U/L (14-36); Bilirubin,Total 0.5 mg/dL (0.2-1.3); Blood Urea Nitrogen 18 mg/dL (7-17); Calcium 9.5 mg/dL (8.4-10.2); Carbon Dioxide 29 mmol/L (22-30); Chloride 105 mmol/L (98-107); Cholesterol 242 mg/dL (0-200); Estimated Glomerular Filt Rate > 60; Glucose 165 mg/dL (65-110); HDL Direct 84 mg/dL; Hemoglobin A1C 7.2 % (<5.7); Potassium 3.9 mmol/L (3.4-5.0); Sodium 142 mmol/L (137-145); Triglycerides 123 mg/dL (<150)
[2023-02-06 07:46] LABS: Creatinine Urine 139.2 mg/dL
[2023-02-06 07:50] LABS: MALB Creatinine Ratio 72.1 mg/g (0-30); Microalbumin Urine Random 100.3 mg/L (0-16.7)
[2023-02-06 07:52] LABS: LDL Cholesterol Direct 100 mg/dL
[2023-02-06 08:01] LABS: Vitamin D 25 Hydroxy 58.7 ng/mL
== END 2023-02-06 06:48 | disposition home or self-care (01) ==
LOC: ANHLAB 06:49
PROVIDERS: PCP Internal Medicine; Visit Provider Internal Medicine
DX: E11.9 Type 2 diabetes mellitus without complications (principal); E55.9 Vitamin D deficiency, unspecified; I10 Essential (primary) hypertension; R53.83 Other fatigue
CPT/HCPCS: 36415; 80053; 80061; 82043; 82306; 83036; 84443; 85025

== ENCOUNTER 2023-03-26 09:59 | Outpatient (CLI) | payer MEDICARE, MEDICAID, SELFPAY ==
[2023-03-26 12:11] LABS: Free T4 Free Thyroxine 1.37 ng/mL (0.78-2.19)
== END 2023-03-26 10:00 | disposition home or self-care (01) ==
PROVIDERS: PCP Internal Medicine; Visit Provider Internal Medicine
DX: I48.0 Paroxysmal atrial fibrillation (principal)
CPT/HCPCS: 36415; 84439; 84443

== ENCOUNTER 2023-05-07 07:41 | Outpatient (CLI) | payer MEDICARE, MEDICAID, SELFPAY ==
--- NOTE | ~2023-05-07 | CT_ITS ---
CT of the Abdomen and Pelvis: Indication: Diverticulitis Technique: 2.5 mm axial scans were obtained through the abdomen and pelvis following intravenous adm inistration of 100 cc of Omnipaque 350. Dose reduction technique was used on this scan by utilizing a utomated exposure control and iterative reconstruction technique. The dose-length product (DLP) was 1 273.41 mGy-cm. COMPARISON: 11/06/2022 Findings: Scans through the lung bases demonstrated small hiatal hernia. The liver, pancreas, gallbladder, adrenals and kidneys are within normal limits. Calcified splenic gr anulomas are present. No evidence of aortic aneurysm. No lymphadenopathy. No bowel obstruction. There is evidence of prior bariatric surgery. There is probable minimal inflamm atory change at the mid descending colon with underlying diverticular disease. Images through the pelvis were performed. Urinary bladder unremarkable. No pelvic mass seen. No ascit es. Impression: Probable minimal acute diverticulitis of the mid descending colon. Reviewed, dictated and finalized at location . 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
[2023-05-07 08:01] LABS: Estimated Glomerular Filt Rate > 60
== END 2023-05-07 07:42 | disposition home or self-care (01) ==
LOC: ANHIMG 07:43
PROVIDERS: PCP Internal Medicine; Visit Provider Physician Assistant
DX: K57.92 Diverticulitis of intestine, part unspecified, without perforation or abscess without bleeding (principal)
CPT/HCPCS: 74177; Q9967

== ENCOUNTER 2023-05-28 06:53 | Outpatient (CLI) | payer MEDICARE, MEDICAID, SELFPAY ==
[2023-05-28 07:28] LABS: Alanine Aminotransferase 18 U/L (6-35); Alkaline Phosphatase 61 U/L (38-126); Anion Gap 9 mmol/L (8-16); Aspartate Amino Transferase 20 U/L (14-36); Bilirubin,Total 0.7 mg/dL (0.2-1.3); Blood Urea Nitrogen 17 mg/dL (7-17); Calcium 9.3 mg/dL (8.4-10.2); Carbon Dioxide 25 mmol/L (22-30); Chloride 106 mmol/L (98-107); Estimated Glomerular Filt Rate > 60; Glucose 116 mg/dL (65-110); Potassium 3.8 mmol/L (3.4-5.0); Sodium 140 mmol/L (137-145)
[2023-05-28 08:17] LABS: Creatinine Urine 173.9 mg/dL
[2023-05-28 08:20] LABS: Microalbumin Urine Random 55.6 mg/L (0-16.7)
[2023-05-28 08:24] LABS: Free T4 Free Thyroxine 1.26 ng/mL (0.78-2.19)
[2023-05-28 10:03] LABS: Hemoglobin A1C 6.6 % (<5.7)
== END 2023-05-28 06:54 | disposition home or self-care (01) ==
LOC: ANHLAB 06:54
PROVIDERS: PCP Internal Medicine; Visit Provider Physician Assistant
DX: E11.9 Type 2 diabetes mellitus without complications (principal); E03.9 Hypothyroidism, unspecified
CPT/HCPCS: 36415; 80053; 82043; 83036; 84439; 84443

== ENCOUNTER 2023-08-05 06:49 | Outpatient (CLI) | payer MEDICARE, MEDICAID, SELFPAY ==
[2023-08-05 08:27] LABS: Thyroid Stimulating Hormone 0.331 uIU/mL (0.465-4.680)
[2023-08-05 08:36] LABS: Free T4 Free Thyroxine 1.21 ng/mL (0.78-2.19)
== END 2023-08-05 06:50 | disposition home or self-care (01) ==
PROVIDERS: PCP Internal Medicine; Visit Provider Physician Assistant
DX: E03.9 Hypothyroidism, unspecified (principal)
CPT/HCPCS: 36415; 84439; 84443

== ENCOUNTER 2023-09-30 16:29 | Emergency (ER) | payer MEDICARE, MEDICAID, SELFPAY ==
--- NOTE | ~2023-09-30 | XR_ITS ---
EXAM: XR hand RT min 3V DATE: 09/30/2023 17:07 HISTORY: STRUCK POSTERIOR HAND TODAY ON CABINET . COMPARISON: None available. FINDINGS: Mildly decreased mineralization. No acute fracture. Scapholunate interval widening. No lyt ic or blastic lesion. Mild scattered degenerative changes. No erosion or periosteal change. Soft tiss ues within normal limits. IMPRESSION: Mild osteopenia. Polyarticular osteoarthritis. Scapholunate widening may reflect scapholu william ligament injury, the mechanism for is not typically directed impact injury. Correlate for histor y of remote injury such as a fall on outstretched hand. Reviewed, dictated and finalized at location K. IMPRESSION: Mild osteopenia. Polyarticular osteoarthritis. Scapholunate widenin g may reflect scapholunate ligament injury, the mechanism for is not typically directed impact injury. Correlate for history of remote injury such as a fall o n outstretched hand.
[2023-09-30 16:37] VITALS: BP 113/59; PULSE 77; RESP 18; TEMP 37.2; O2SAT 100
--- NOTE | 2023-09-30 17:11 | ED.UPPEXIN ---
HPI - Extremity Injury (Upper) General Chief Complaint: Extremity Injury, Upper Stated Complaint: Right Hand Injury Time Seen by Provider: 09/30/23 17:07 Source: patient and RN notes reviewed Mode of arrival: ambulatory Limitations: no limitations History of Present Illness HPI narrative: Patient presents today with an injury to the dorsum of her right hand. This afternoon she was doing her hair and struck the dorsum of her hand on the corner of a shelf. She reports some tingling to the hand. The pain radiates up her forearm. Currently rates her pain 9/10. She did apply some ice for her discomfort. Pain increases with movement of her 3rd finger. Related Data Home Medications Medication Instructions Recorded Confirmed cholecalciferol (vitamin D3) 25 1,000 unit PO QAM 03/12/19 09/30/23 mcg (1,000 unit) capsule cinnamon bark 500 mg capsule 1,000 mg PO QAM 03/12/19 09/30/23 (Cinnamon) apple cider vinegar 600 mg capsule 1,200 mg PO QAM 07/07/21 09/30/23 ascorbic acid 7.5 mg-vit E 7.5 1 tablet PO QAM 07/07/21 09/30/23 unit-biotin 1,250 mcg chewable tablet (Hair,Skin,Nails with Biotin) zinc 50 mg tablet 50 mg PO QAM 07/07/21 09/30/23 vitamin B complex (B 1 tablet PO DAILY 12/20/21 09/30/23 Complex-Vitamin B12 tablet) blood sugar diagnostic (OneTouch 08/14/22 09/30/23 Ultra Test strips) metoprolol succinate 50 mg 50 mg PO DAILY 09/19/23 09/30/23 tablet,extended release 24 hr Allergies Allergy/AdvReac Type Severity Reaction Status Date / Time No Known Allergies Allergy Verified 09/30/23 16:44 Review of Systems Review of Systems: CONSTITUTIONAL: Denies body aches, fever, chills, or sweats. EYES: Denies visual changes, redness, or discharge. ENT: Denies rhinorrhea, congestion, sore throat, or otalgia. CARDIOVASCULAR: Denies chest pain, palpitations, or edema. RESPIRATORY: Denies cough or dyspnea. GASTROINTESTINAL: Denies abdominal pain, nausea, vomiting, or diarrhea. GENITOURINARY: Denies dysuria or hematuria. SKIN: Denies rash, itching, or wounds. MUSCULOSKELETAL: + right hand injury NEUROLOGIC: Denies headache, numbness, tingling, or weakness. PSYCH: Denies depression or anxiety. [facility] Past Medical History Medical History Arthritis Arthritis of right hip Arthritis, lumbar spine BMI 39.0-39.9,adult CAP (community acquired pneumonia) Chronic a-fib Diabetes mellitus Last charted A1C 7.1 from october of 2018, Pt states her most recent A1c was 6.3 Hallux valgus (acquired), right foot Hammertoe of right foot Osteoarthritis of right knee Pneumonia Seasonal allergic rhinitis Synovial cyst of ankle and foot region Surgical History Surgical History H/O section X2 H/O foot surgery H/O rotator cuff surgery (~03/08/16) Right times three History of arthroscopy of right knee meniscectomy 2011 History of hand surgery (~1988) Right carpal tunnel History of hand surgery (~2007) Left carpal tunnel History of hysterectomy (~1996) History of knee replacement (~08/06/13) Right S/P gastric sleeve procedure S/P tonsillectomy Family History Family History Father Cerebrovascular accident Patient's father is Family history of arthritis Heart disease Hypertension Mother Family history of congestive heart failure Family history of obesity Family history of chronic obstructive pulmonary disease Family history of heart disease in male family member before age 55 Sibling Diabetes mellitus Hypertension Heart disease Other Arthritis Social History Social History Social History: The patient is . She lives with her oldest daughter. She has 2 children. she is retired from [employer]. She is a life
== END 2023-09-30 17:25 | disposition home or self-care (01) ==
PROVIDERS: Emergency Provider Nurse Practitioner; PCP Internal Medicine
DX: S60.221A Contusion of right hand, initial encounter (principal); W22.8XXA Striking against or struck by other objects, initial encounter; E11.9 Type 2 diabetes mellitus without complications; M16.11 Unilateral primary osteoarthritis, right hip; M17.11 Unilateral primary osteoarthritis, right knee; M47.816 Spondylosis without myelopathy or radiculopathy, lumbar region; I48.20 Chronic atrial fibrillation, unspecified; Z96.651 Presence of right artificial knee joint; Z98.84 Bariatric surgery status
CPT/HCPCS: 73130; 99213; G0463

== ENCOUNTER 2023-10-08 06:33 | Outpatient (CLI) | payer MEDICARE, MEDICAID, SELFPAY ==
[2023-10-08 07:24] LABS: Alanine Aminotransferase 23 U/L (6-35); Albumin Level 4.1 g/dL (3.5-5.1); Alkaline Phosphatase 64 U/L (38-126); Anion Gap 5 mmol/L (4-12); Aspartate Amino Transferase 24 U/L (14-36); Bilirubin,Total 0.6 mg/dL (0.2-1.3); Blood Urea Nitrogen 19 mg/dL (7-17); Calcium 9.3 mg/dL (8.4-10.2); Carbon Dioxide 29 mmol/L (22-30); Chloride 107 mmol/L (98-107); Cholesterol 185 mg/dL (0-200); Estimated Glomerular Filt Rate > 60; Glucose 102 mg/dL (65-110); HDL Direct 64 mg/dL; Sodium 141 mmol/L (137-145); Triglycerides 124 mg/dL (<150)
[2023-10-08 07:36] LABS: LDL Cholesterol Direct 80 mg/dL
[2023-10-08 07:51] LABS: Hemoglobin A1C 5.6 % (<5.7)
== END 2023-10-08 06:34 | disposition home or self-care (01) ==
PROVIDERS: PCP Internal Medicine; Visit Provider Internal Medicine
DX: E11.69 Type 2 diabetes mellitus with other specified complication (principal); I10 Essential (primary) hypertension; E03.9 Hypothyroidism, unspecified; E78.5 Hyperlipidemia, unspecified
CPT/HCPCS: 36415; 80053; 80061; 83036; 84443

== ENCOUNTER 2024-01-24 13:41 | Outpatient (CLI) | payer MEDICARE, MEDICAID, SELFPAY ==
--- NOTE | ~2024-01-24 | MM_ITS ---
EXAMINATION: MM screening tato BI w magda HISTORY: Screening TECHNIQUE: Craniocaudal and mediolateral oblique 3-D tomosynthesis images were obtained and synthetic 2-D images were generated. CAD analysis was submitted and interpreted. COMPARISON: Comparison to multiple prior studies sequentially, with oldest reviewed study dated 04/2017. BREAST PARENCHYMAL COMPOSITION: Not dense: There are scattered areas of fibroglandular density. FINDINGS: There is no evidence of suspicious mass, calcification, or architectural distortion to sugg est malignancy in either breast. There has been no suspicious interval change. IMPRESSION: 1. No mammographic evidence of malignancy. 2. Recommend routine screening mammography in one year. BI-RADS Category 1: Negative Reviewed, dictated and finalized at location B.
== END 2024-01-24 13:42 | disposition home or self-care (01) ==
LOC: ANHIMG 13:42
PROVIDERS: PCP Internal Medicine; Visit Provider Obstetrics & Gynecology
DX: Z12.31 Encounter for screening mammogram for malignant neoplasm of breast (principal)
CPT/HCPCS: 77063; 77067

== ENCOUNTER 2024-02-08 06:58 | Outpatient (CLI) | payer MEDICARE, MEDICAID, SELFPAY ==
[2024-02-08 08:11] LABS: Alanine Aminotransferase 24 U/L (6-35); Albumin Level 4.2 g/dL (3.5-5.1); Alkaline Phosphatase 67 U/L (38-126); Anion Gap 8 mmol/L (4-12); Aspartate Amino Transferase 26 U/L (14-36); Bilirubin,Total 0.6 mg/dL (0.2-1.3); Blood Urea Nitrogen 18 mg/dL (7-17); Calcium 9.5 mg/dL (8.4-10.2); Carbon Dioxide 30 mmol/L (22-30); Chloride 103 mmol/L (98-107); Cholesterol 184 mg/dL (0-200); Estimated Glomerular Filt Rate > 60; Glucose 99 mg/dL (65-110); HDL Direct 78 mg/dL; Potassium 3.9 mmol/L (3.4-5.0); Sodium 141 mmol/L (137-145); Triglycerides 145 mg/dL (<150)
[2024-02-08 08:22] LABS: LDL Cholesterol Direct 62 mg/dL
[2024-02-08 09:09] LABS: Hemoglobin A1C 5.8 % (<5.7)
[2024-02-08 09:55] LABS: Vitamin D 25 Hydroxy 52.4 ng/mL
== END 2024-02-08 06:59 | disposition home or self-care (01) ==
PROVIDERS: PCP Internal Medicine; Visit Provider Internal Medicine
DX: R53.83 Other fatigue (principal); E78.00 Pure hypercholesterolemia, unspecified; I10 Essential (primary) hypertension; E11.69 Type 2 diabetes mellitus with other specified complication; E78.5 Hyperlipidemia, unspecified; E55.9 Vitamin D deficiency, unspecified
CPT/HCPCS: 36415; 80053; 80061; 82306; 83036; 84443

== ENCOUNTER 2024-07-18 15:03 | Emergency (ER) | payer MEDICARE, MEDICAID, SELFPAY ==
[2024-07-18] VITALS (10 sets, daily range): BP systolic 106–135; BP diastolic 61–88; PULSE 68–157; RESP 16–18; TEMP 36.9; O2SAT 99–100
--- NOTE | ~2024-07-18 | XR_ITS ---
XR chest 2V DATE: 07/18/2024 16:04 INDICATION: Dizziness TECHNIQUE: 2 views COMPARISON: 08/13/2022 CTA chest 08/13/2022 portable AP chest FINDINGS: Mild cardiomegaly. No hilar or mediastinal enlargement. No pulmonary vascular congestion or pleural effusion, pulmonary infiltrate or consolidation. Minimal linear atelectasis or scarring at t he lateral left lower lung. There is old pulmonary granulomatous disease. There is diffuse osteopenia. There is degenerative spurring of the thoracic and lumbar spine and levoscoliosis of the upper thorac ic spine and dextroscoliosis of the lower thoracic spine. Bilateral glenohumeral osteoarthritis and b ilateral rotator cuff atrophy. IMPRESSION: No active pulmonary disease Reviewed, dictated and finalized at location A. IMPRESSION: No active pulmonary disease
--- OUTSIDE RECORDS SUMMARY | 2024-07-18 15:05 | XMS_ITS | Referral Summary ---
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 Name Role Phone Phani Richard Primary Care Provider [phone] Encounters Date Type Department Care Team Description 07/08/2024 Telephone [facility] Accountable Care Organization [address] [place] [id number] Charla Stoner Unsuccessful Phone Call 1 ([facility] Med Adherence ) 06/11/2024 8:00 AM [facility] Office Visit [facility] Medical Group Cardiology [address] [place] [address] Zena Banegas MD Paroxysmal atrial fibrillation (HCC) (Primary Dx); Primary hypertension; Chronic anticoagulation from Last 3 Months Allergies Active Allergy Reactions Criticality Noted Date Comments Lisinopril Unknown 10/11/2023 Medications albuterol HFA (PROVENTIL HFA,VENTOLIN HFA,PROAIR HFA) 90 mcg/actuation inhaler Inhale 2 puffs every 6 (six) hours as needed Active ascorbic acid 500 mg tablet,chewable Take 1 tablet/chew tab (500 mg total) by mouth daily Active budesonide (PULMICORT) 0.25 mg/2 mL nebulizer solution USE 1 VIAL IRRIGATION EVERY OTHER DAY 3 Active cholecalciferol (VITAMIN D-3) 25 mcg (1,000 unit) tablet Take 1 tablet (1,000 Units total) by mouth daily Active fluticasone propionate (FLONASE) 50 mcg/actuation nasal spray SHAKE LIQUID AND USE 2 SPRAYS IN EACH NOSTRIL EVERY MORNING 3 Active omeprazole (PriLOSEC) 20 mg capsule Take 1 capsule (20 mg total) by mouth every morning 3 Active cinnamon bark 500 mg capsule Take 1 capsule (500 mg total) by mouth daily Active cyanocobalamin (Vitamin B-12) 100 mcg tabletIndicatio ns:Prevention of Vitamin B12 Deficiency Take 1 tablet (100 mcg total) by mouth daily Active multivit with minerals/lutein (MULTIVITAMIN 50 PLUS ORAL) Take by mouth Ac tive zinc acetate 25 mg (zinc) capsule Take by mouth Active Farxiga 10 mg tablet Take 1 tablet (10 mg total) by mouth daily 3 Active Ozempic 1 mg/dose (4 mg/3 mL) pen injector injection Inject 1 mg under the skin once a week 3 Active OneTouch Ultra Test strip 1 each by other route 2 (two) times a day 3 Active Eliquis 5 mg tablet TAKE 1 TABLET(5 MG) BY MOUTH EVERY 12 HOURS 60 tablet 11 4 Active metoprolol XL (TOPROL-XL) 50 mg extended release tablet TAKE 1 TABLET(50 MG) BY MOUTH DAILY 90 tablet 3 4 Active Additional Information Patient taking differently: 12.5 mgoral Daily, Reported on 06/11/2024 acidophilus-pec tin, citrus 100 million cell-10 mg capsule Take by mouth Activ e glucosam-chondr oitin-diet cb25 116-100 mg capsule Take by mouth Active Active Problems Problem Noted Date Diagnosed Date Chronic anticoagulation 06/11/2024 Hypertension 10/11/2023 Paroxysmal atrial fibrillation 10/05/2022 Anticoagulation management encounter 10/05/2022 Resolved Problems Problem Noted Date Diagnosed Date Resolved Date Hematuria 10/05/2022 04/12/2023 Social History Tobacco Use Types Packs/Day Years Used Date Smoking Tobacco: Never Tobacco Cessation:Counseling Given: Not Answered AUDIT-C Answer Date Recorded Q1: How often do you have a drink containing alcohol? Never 09/04/2022 Q2: How many drinks containi ng alcohol do you have on a typical day when you are drinking? Patient does not drink 05/09/202 3 Q3: How often do you have si x or more drinks on one occasion? Never 09/04/2022 Comments Unknown Sex and Gender Information Value Date Recorded Sex Assigned at Not on file Legal Sex Female 12:33 PM [facility] Gender Identity Not on file Sexual Orientation Not on file Last Filed Vital Signs Vital Sign Reading Time Taken Comments Blood Pressure 118/70 06/11/2024 8:03 AM [facility] Pulse 89 06/11/2024 8:03 AM [facility] Temperature - - Respiratory Rate - - Oxygen Saturation 98% 06/11/2024 8:03 AM [facility] Inhaled Oxygen Concentration - - Weight 86.2 kg (190 lb) 06/11/2024 8:03 AM [facility] Height 160 cm (5' 3 ) 06/11/2024 8:03 AM [facility] Body Mass Index 33.66 06/11/2024 8:03 AM [facility] Plan of Treatment Not on file Insurance [facility] MEDICARE ADVANTAGE [facility] MEDICARE Address: [address] [address] [place] [address] [facility] MEDICARE ADVANTAGE [facility] MEDICARE Address: [address] [address] [place] [address] [employer]PA Care Teams Multiple 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
--- OUTSIDE RECORDS SUMMARY | 2024-07-18 15:05 | XMS_ITS | Data Portability ---
Author Organization [employer] , [facility] Address [address] [place] [address] Assessment Encounter Date Assessment Date Assessment LastModified by Organization Details LastModified Time 07/28/2021 07/28/2021 66 y.o. with vaginitis sx - SureSwab and RX sent - Reviewed vulvar hygiene: avoid tight or moist clothing, soaps, Vagisil and other wipes, cotton underwear only and sleep without, unscented detergent - encouraged probiotics daily. - RTO for annual or as needed [email or web address] Not available 07/28/2021 10:56:02 Plan of Treatment Reminders Order Date Submit Date Provider Last Modified By Organization Details Last Modified Time Details Appointments None recorded. Lab bacterial vaginosis + vaginitis panel, vaginal 2021 022 [employer], [address] [facility], [place], [address], 19:57:33 Referral None recorded. Procedures None recorded. Surgeries None recorded. Imaging None recorded. Medication Orders terconazole 0.8 % vaginal cream 2022 023 [id number], [address], [place], [id number], 3 11:02:11 Diflucan 150 mg tablet 2021 022 [email or web address] [address] [facility][id number], [address], [place], [id number], 3 10:15:57 Patient TargetsNo targets recorded. Patient Instructions Encounter Date Encounter Id Patient Instructions Last Modified By Organization Details Last Modified Time 07/28/2021 [id number] - Refrain from washcloth/loofah use, wallace rosalba products, frequent pantiliner use. - Pt instructed to wear cotton underwear, changing out of workout clothes quickly, hypoallergenic soap. -Discussed vaginal hygiene. -Encouraged safe sex. - Use a detergent free of dyes, enzymes and perfumes. Avoid using fabric softeners. Soak and rinse when using a stain removing product and then wash normally. Do not use a fabric softener. Soak and rinse in clear water all underwear and towels on when you have used a stain removing product. Then wash in your regular washing cycle. -Avoid tight clothing, especially clothing made of synthetic fabrics. Remove wet bathing and exercise clothing as soon as you can. - Avoid bath soaps, lotions, gels, etc. which contain perfumes. This includes many baby products and feminine hygiene products marked mild or for vaginal health . We suggest any of the following soaps: Dove-Hypoallergeni c, Neutrogena, Basis, or Pearls. Do not use soap directly on the vulvar skin just warm water and your hand will keep the vulvar area clean without irritating the skin. - Avoid all bubble baths, bath salts and scented oils. -Do not use hot water while bathing or showering. Only luke-warm water should only be used. -Avoid all feminine hygiene sprays, perfumes, adult, or baby wipes. Pour lukewarm water over the vulva after urinating if urine causes burning of the skin. Pat dry rather than rubbing with a towel. - Avoid the use of deodorized pads and tampons. Tampons should be used when the blood flow is heavy enough to soak one tampon in four hours or less. Tampons are safe for most women, but wearing them too long or when the blood flow is light may result in vaginal infection, increased discharge, odor, or toxic shock syndrome. Also, use only pads that have a cotton liner that comes in contact with your skin (no dry weave pads). - Avoid all over the counter creams or ointments, except A&D Ointment (if you have wool allergy do not use A&D). -DO NOT DOUCHE. Baking soda soaks will help rinse away extra discharge and help with odor. -DO NOT SHAVE, wax or laser the vulvar area (the bikini line is ok). -Some women may have problems with chronic dampness. Keeping dry is important. Choose cotton fabrics whenever you can. -Keep an extra pair of underwear with you in a small bag and change if you become damp during the day at work/school. -Gold Wei Powder or Zeosorb Powder may be applied to the vulva and groin area one to two times per day to help absorb moisture. -Dryness and irritation during intercourse may be helped by using a lubricant. Use a small amount of a pure vegetable oil/olive oil or Crisco (solid or oil). The vegetable oils contain no chemicals to irritate vulvar/vaginal skin. Vegetable oils will rinse away with water and will not increase your chances of infection. Water-based products like K-Y Jelly are helpful, but may tend to dry before intercourse is over and also contain chemicals that can irritate your vulvar skin. It may be helpful to use a non-lubricated, non-spermicidal condom, and use vegetable oil as the lubricant. This will help keep the semen off the skin which can decrease burning and irritation after intercourse. CONTROL OPTIONS 1. All hormonal contraceptives will have an effect on vaginal secretions but should not increase your frequency of vaginitis. 2. Lubricated condoms, contraceptive jellies, creams, or sponges may cause itching and burning. Ask your health care provider for help. 3. The use of latex condoms with a vegetable oil as a lubricant (#14 above) is suggested to protect your skin. Oil based lubricants may affect the integrity of condoms when used for control or prevention of sexually transmitted diseases. Our experience has not found this to be a problem with vegetable based oils. However, the Centers for Disease Control recommends that condoms not be used with any oil based lubricants for control or prevention of sexually transmitted disease. Discussed ureaplasma/mycopla sma testing and treatment, if indicated. - Refrain from washcloth/loofah use. - Use a hypoallergenic soap and detergent free of dyes, enzymes, and perfumes. - Avoid tight clothing, especially clothing made of synthetic fabrics. Remove wet bathing and exercise clothing as soon as you can. Wear cotton underwear. - Avoid wallace rosalba products, bath soaps, lotions, gels, etc. which contain perfumes. - Avoid all bubble baths, bath salts and scented oils. -Do not use hot water while bathing or showering. Only luke-warm water should only be used. - Avoid frequent pantiliner use, as well as the use of deodorized pads and tampons. - Avoid all over the counter creams or ointments, except A&D Ointment (if you have wool allergy do not use A&D). -DO NOT DOUCHE. Baking soda soaks will help rinse away extra discharge and help with odor. -DO NOT SHAVE, wax or laser the vulvar area (the bikini line is ok). -Gold Wei Powder or Zeosorb Powder may be applied to the vulva and groin area one to two times per day to help absorb moisture. -Dryness and irritation during intercourse may be helped by using a lubricant. [email or web address] Not available 07/28/2021 10:26:27 Reason for Referral None Reported. Results Created Date Observation Date Name Description Value Unit Range Abnormal Flag Note LastModifiedBy Organization Detail LastModifiedTime 07/29/19 22 08/03/2021 SURES WAB(R ), BACTE RIAL VAGIN OSIS/ VAGIN ITIS lactobacillu s species NOT DETECT ED log_( cells /mL) normal Not Available [facility] [place] [address] [place], [address], 08/03/2021 19:57:33 07/29/19 22 08/03/2021 SURES WAB(R ), BACTE RIAL VAGIN OSIS/ VAGIN ITIS atopobium vaginae NOT DETECT ED log_( cells /mL) normal Not Available [facility] [address] [place], [address], 08/03/2021 19:57:33 07/29/19 22 08/03/2021 SURES WAB(R ), BACTE RIAL VAGIN OSIS/ VAGIN ITIS megasphaera species NOT DETECT ED log_( cells /mL) normal Not Available [facility] - [place] [address] [place], [address], 08/03/2021 19:57:33 07/29/19 22 08/03/2021 SURES WAB(R ), BACTE RIAL VAGIN OSIS/ VAGIN ITIS gardnerella vaginalis NOT DETECT ED log_( cells /mL) normal Not Available [facility] - [place] [address], [place], [address], 08/03/2021 19:57:33 07/29/19 22 08/03/2021 SURES WAB(R ), BACTE RIAL VAGIN OSIS/ VAGIN ITIS bv category: NOT SUPPOR TIVE normal REFER ENCE RANGE : BV Categ ory: NOT SUPPO RTIVE Metho dolog y: Real- Time PCR NOT SUPPO RTIVE OF BV: The patte rn of [facility] is not suppo rtive of a diagn osis of BV: 1) Prese nce of Lacto bacil renee spp., G. vagin madhuri level s less than 6.0 log cells /mL, and absen ce of A. vagin ae and Megas phaer a spp; or 2) Absen ce of all targe mckenna organ isms; or 3) Absen ce of Lacto bacil renee spp. plus G. vagin madhuri detec mckenna at level s less than 6.0 log cells /mL and absen ce of A. vagin ae and Megas phaer a spp. EQUIV OCAL FOR BV: The patte rn of [facility] is neith er suppo rtive nor not suppo rtive of a diagn osis of BV. The patie nt may be in trans ition into or out of BV: Prese nce of Lacto bacil renee spp. plus G. vagin madhuri (grea ter or equal to 6.0 log cells /mL) and/o r one of the other BV-as socia mckenna patho gens. SUPPO RTIVE OF BV: The patte rn of [facility] is suppo rtive of a diagn osis of BV: Absen ce of Lacto bacil renee spp. and prese nce of G. vagin madhuri great er than or equal to 6.0 log cells /mL and/o r one or both of the other BV-as socia mckenna patho gens. Eneida ntrat ion for Lacto bacil li (L. acido philu s/cri spatu s, L. jense anh) are colle ctive ly repor mckenna under the term Lact obaci llus spp. , as these speci es are among the perox ovi produ cing Lacto bacil li thoug ht to be prote ctive again st bacte rial vagin osis. Atopo bium vagin ae, Megas phaer a spp., and Gardn erell a (grea ter than 6.0 log cells /mL) have been assoc iated with vagin osis when prese nt in the absen ce of perox idase produ cing Lacto bacil li. This test was devel oped and its jerardo tical perfo rmanc e german cteri stics have been deter mined by [facility]. It has not been clear ed or appro [place] by FDA. This assay has been valid ated pursu ant to the CLIA regul ation s and is used for clini urvashi purpo ses. Not Available [employer] [address] [address] [place], [address], 08/03/2021 19:57:33 07/29/19 22 08/03/2021 SURES WAB(R ), BACTE RIAL VAGIN OSIS/ VAGIN ITIS sureswab(R) trichomonas vaginalis RNA, ql, tma NOT DETECT ED normal REFER ENCE RANGE : NOT DETEC MCKENNA Metho dolog y: Trans cript ion Media mckenna Ampli ficat ion (TMA) For addit ional infor shayna steven refer to http: //richar eubanks.que stdia gnost ics.c om/fa q/Tri chomo nastm a (This link is being provi ded for infor veronique nal/e ducat ional purpo ses only. ) Not Available [employer] [facility] [address] [place], [address], 08/03/2021 19:57:33 07/29/19 22 08/03/2021 SURES WAB(R ), BACTE RIAL VAGIN OSIS/ VAGIN ITIS C. albicans, DNA DETECT ED abnormal Not Available [facility] [place] [address] [place], [address], 08/03/2021 19:57:33 07/29/19 22 08/03/2021 SURES WAB(R ), BACTE RIAL VAGIN OSIS/ VAGIN ITIS C. glabrata, DNA NOT DETECT ED normal Not Available [facility] [place] [address] [place], [address], 08/03/2021 19:57:33 07/29/19 22 08/03/2021 SURES WAB(R ), BACTE RIAL VAGIN OSIS/ VAGIN ITIS C. tropicalis, DNA NOT DETECT ED normal Not Available [facility] [place] [address] [place], [address], 08/03/2021 19:57:33 07/29/19 22 08/03/2021 SURES WAB(R ), BACTE RIAL VAGIN OSIS/ VAGIN ITIS C. parapsilosis , DNA NOT DETECT ED normal REFER ENCE RANGE : NOT DETEC MCKENNA Metho dolog y: Real- Time PCR This test was devel oped and its jerardo tical perfo rmanc e german cteri stics have been deter mined by [facility]. It has not been clear ed or appro [place] by FDA. This assay has been valid ated pursu ant to the CLIA regul ation s and is used for clini urvashi purpo ses. Not Available [facility] [address], [address], 08/03/2021 19:57:33 10/02/19 23 10/01/2022 MAMMO , scree arlene, digit al, bilat eral No observ ation record ed. [email or web address] [facility] [address], [place], [address], 10/02/2022 07:52:01 Result Notes None recorded. Problems Name Problem SNOMED Code Status Onset Date Resolution Date Notes Provider Name and Address Organization Details Recorded Time Breast neoplasm screening NOS Completed 201703/04/2018 Screening mammogram - other; Location: None Severity: Moderate Progress: Stable Added By: Brooklyn Ospina Add to Current Problems: YES ProblemSt atus: Resolve Not Available [facility] 1 05:32:47 Screening mammograp hy Completed 201703/04/2018 Encounter for screening mammogram for malignant neoplasm of breast; Progress: Stable Added By: Brooklyn Ospina Add to Current Problems: NO ProblemSt atus: Resolve S creening mammogram - other; Location: None Progress: Stable Added By: Brooklyn Ospina Add to Current Problems: YES ProblemSt atus: Resolve Not Available [facility] 2 07:46:32 Problem Notes None recorded. Procedures Surgical History Date Name Laterality Status Provider Name and Address Organization Details Recorded Time 10/02/19 Most Recent Mammogram completed Lori Borrero [facility] 12/14/2022 10:20:49 hysterectomy completed Cassidy Towandas booktrusiak [facility] 07/27/2021 00:09:30 ligation of bilateral fallopian tubes completed Cassidy Pietrusiak [facility] 07/27/2021 00:09:40 section completed Cassidy Pietrusiak [facility] 07/27/2021 00:09:49 operative procedure on knee completed Cassidy Pietrusiak [facility] 07/27/2021 00:10:03 operative procedure on shoulder completed Cassidy Pietrusiak [facility] 07/27/2021 00:10:14 Imaging Results Imaging Date Name Status LastModified by Organiz ation Details LastModified Time 10/01/2022 MAMMO, screening, digital, bilateral completed [place] [address] [facility] [address], [place], [address], 10/02/2022 07:52:01 Procedure Notes None recorded. Medical Equipment None Reported. Allergies Allergen ID Allergen Name Allergen Category Reaction Reaction Severity Criticality Documentation Date Start Date Code Code System Note Provider Name and Address Organization Details Recorded Time 501373 lisinopri l medicatio n Not available Not available Not available 07/28/2021 07882 RxNorm Not Available Not Available Not Available Medications Name Sig Start Date Stop Date Status Note LastModified by Organization Details LastModified Time metformin 500 mg tablet TAKE 1 TABLET BY MOUTH DAILY active Not Available Not Available No t Available neomycin- polymyxin -hydrocor t 3.5 mg/mL-10, 000 unit/mL-1 % ear solution INSTILL 4 DROPS INTO AFFECTED EAR EVERY 8 HOURS FOR 7 DAYS 07/28 completed Not Available Not Available Not Available cefuroxim e axetil 250 mg tablet TAKE 1 TABLET BY MOUTH TWICE DAILY 07/28 completed Not Available Not Available Not Available flucytosi ne 500 mg capsule TAKE 2 CAPSULES BY MOUTH EVERY 6 HOURS 12/14 completed Not Available Not Available Not Available azithromy jaqueline 250 mg tablet 12/14 completed Not Available Not Available Not Available fluconazo le 150 mg tablet TAKE 1 TABLET BY MOUTH 1 TIME 12/14 completed Not Available Not Available Not Available amiodaron e 200 mg tablet TAKE 1 TABLET BY MOUTH DAILY AT 8 AM active Not Available Not Available No t Available prednison e 20 mg tablet 12/14 completed Not Available Not Available Not Available prednison e 5 mg tablet 12/14 completed Not Available Not Available Not Available terconazo le 0.8 % vaginal cream INSERT 1 APPLICAT ORFUL VAGINALL Y EVERY DAY DIRECTED active Not Available Not Available No t Available ciproflox acin 500 mg tablet TAKE 1 TABLET BY MOUTH TWICE DAILY 12/14 completed Not Available Not Available Not Available sulfameth oxazole 800 mg-trimet hoprim 160 mg tablet TAKE 1 TABLET BY MOUTH EVERY 12 HOURS 12/14 completed Not Available Not Available Not Available tramadol 50 mg tablet TAKE 1 TABLET BY MOUTH EVERY 6 HOURS NEEDED active Not Available Not Available No t Available ofloxacin 0.3 % ear drops INSTILL 7 DROPS IN THE LEFT EAR THREE TIMES DAILY FOR 10 DAYS 07/28 completed Not Available Not Available Not Available linezolid 600 mg tablet TAKE 1 TABLET BY MOUTH EVERY 12 HOURS 08/18 /2023 completed Not Available Not Available Not Available OneTouch Ultra Test strips USE DIRECTED TO TEST 1 TO 2 TIMES DAILY active Not Available Not Available No t Available clotrimaz ole-betam ethasone 1 %-0.05 % topical cream APPLY TOPICALL Y TO THE AFFECTED AREA TWICE DAILY active Not Available Not Available No t Available budesonid e 0.25 mg/2 mL suspensio n for nebulizat ion USE 1 VIAL IRRIGATI ON EVERY OTHER DAY active Not Available Not Available No t Available omeprazol e 20 mg capsule,d elayed release TAKE 1 CAPSULE BY MOUTH EVERY MORNING active Not Available Not Available No t Available lisinopri l 5 mg tablet TAKE 1 TABLET BY MOUTH EVERY MORNING active Not Available Not Available No t Available azelastin e 137 mcg (0.1 %) nasal spray USE 1 SPRAY IN EACH NOSTRIL EVERY 12 HOURS 07/28 completed Not Available Not Available Not Available methylpre dnisolone 4 mg tablets in a dose pack FOLLOW PACKAGE DIRECTIO NS 07/28 completed Not Available Not Available Not Available albuterol sulfate HFA 90 mcg/actua tion aerosol inhaler INHALE 2 PUFFS INTO THE LUNGS EVERY 4 TO 6 HOURS NEEDED FOR SHORTNES S OF BREATH OR WHEEZING active Not Available Not Available No t Available oxybutyni n chloride 5 mg tablet TAKE 1 TABLET BY MOUTH THREE TIMES DAILY NEEDED FOR SPASMS 12/14 completed Not Available Not Available Not Available cefdinir 300 mg capsule TAKE 1 CAPSULE BY MOUTH EVERY 12 HOURS 12/14 completed Not Available Not Available Not Available fluticaso ne propionat e 50 mcg/actua tion nasal spray,carlo pension SHAKE LIQUID AND USE 2 SPRAYS IN EACH NOSTRIL EVERY MORNING active Not Available Not Available No t Available amoxicill in 875 mg-potass ium clavulana te 125 mg tablet TAKE 1 TABLET BY MOUTH TWICE DAILY 07/28 completed Not Available Not Available Not Available oxycodone 5 mg tablet TAKE 1 TABLET BY MOUTH EVERY 12 HOURS NEEDED FOR PAIN 07/28 completed Not Available Not Available Not Available azithromy jaqueline 500 mg tablet TAKE 1 TABLET BY MOUTH ONCE 12/14 completed Not Available Not Available Not Available omeprazol e 07/28 completed Omeprazo le 20mg Capsules , Extended Release Allow Substitu tion: True Refill Denied: No Refill DateOccu rred: 01/04/20 18 Not Available Not Available Not Available amlodipin e 07/28 completed Not Available Not Available Not Available lisinopri l 07/28 completed Lisinopr il 5mg Tablet Allow Substitu tion: True Refill Denied: No Refill DateOccu rred: 01/04/20 18 Not Available Not Available Not Available metoprolo l succinate 07/28 completed Not Available Not Available Not Available Eliquis 5 mg tablet TAKE 1 TABLET BY MOUTH EVERY 12 HOURS active Not Available Not Available No t Available Vitals Date Recorded Body height Body mass index (BMI) Body weight Body temperature Systolic blood pressure Diastolic blood pressure Provider Name and Address Organization Details Last Updated DateTime 2 160.02 cm 51.2 kg/m2 153994. 19 g 96 [degF] 127 mm[Hg] 72 mm[Hg] Dolores Jacobo [facility] 2 10:23:03 Date Recorded Body height Body temperature Body mass index (BMI) Body weight Systolic blood pressure Diastolic blood pressure Provider Name and Address Organization Details Last Updated DateTime 3 160.02 cm 96.8 [degF] 38.1 kg/m2 90958.3 6 g 119 mm[Hg] 70 mm[Hg] Lori Borrero [facility] 3 10:26:18 Social History Question Answer Notes LastModified by Organizat ion Details LastModified Time Tobacco Smoking Status Never Smoker Lori Borrero [facility] 12/14/2022 10:21:35 What Is Your Level Of Alcohol Consumption? None [email or web address] Information not available 12/14/2022 Are You Blind Or Do You Have Difficulty Seeing? No [email or web address] Information not available 12/14/2022 Are You Deaf Or Do You Have Serious Difficulty Hearing? No [email or web address] Information not available 12/14/2022 What Type Of Diet Are You Following? DIABETIC [email or web address] Information not available 12/14/2022 How Many Children Do You Have? 2 [email or web address] Information not available 12/14/2022 What Is Your Relationship Status? [email or web address] Information not available 07/28/2021 Do You Use Any Illicit Or Recreational Drugs? No [email or web address] Information not available 12/14/2022 Do You Or Have You Ever Used Any Other Forms Of Tobacco Or Nicotine? No [email or web address] Information not available 12/14/2022 Sex: Unknown Functional Status Question Answer Note LastModified by Organizat ion Details LastModified Time What is your exercise level? Occasional [email or web address] Information not available 12/14/2022 Mental Status None recorded. Family History Relationship Description Onset Age of this Age Resolved Age Notes LastModified by Organization Details LastModified Time Father No current problems or disability [email or web address] Not available 00:10:17 Mother No current problems or disability [email or web address] Not available 00:10:17 Medical History Condition Response Heart Disease Y High Blood Pressure N Diabetes (insulin dependent) Y Kidney Infection Gynecological History Statement/Question Response HPV Vaccine N If Post Menopausal, Age at Menopause 38 Date of Last Pap Smear Most Recent Mammogram 10/01/2022 Current Control Method Hysterectom y Obstetrics History GPAL:G 3 P 2 0 1 2 Type Value Full Term 2 Spontaneous 1 Living 2 Total 3 Past Encounters Encounter ID Performer Location Encounter Start Date Encounter Closed Date Diagnosis/Indication Diagnosis SNOMED-CT Code Diagnosis ICD10 Code [id number] [address] [place] [address] 07/28/2021 10:03:45 07/28/2021 14:03:19 Vaginitis 09472721 N76.0 [id number] [facility] [address] [place] [address] 12/14/2022 09:57:29 12/17/2022 17:57:01 Atrophic vaginitis 11995291 N95.2 Infection screening 2437 74373 Z11.9 Acute vaginitis 48636251 N76.0 reviewed vulvar care guidelines Health Concerns Section Related Observation LastModified by Organization Detai ls LastModified Time None Recorded Concern Status LastModified by Organization Details LastModified Time None Recorded Advance Directives Directive None Recorded Payers Encounter Date Sequence Insurance Name Policy Number Policy Hernandez Covered Member ID Hernandez Member ID Guarantor Name 07/28/2021 1 [facility] (MEDICARE REPLACEMENT/A DVANTAGE - PPO) [id number] Shavonne Ahumada [id number] Shavonne Ahumada 07/28/2021 2 [place] [facility] AID Shavonne Ahumada [id number] Shavonne Covingtons 12/14/2022 1 [facility] (MEDICARE REPLACEMENT/A DVANTAGE - PPO) [id number] Shavonne Covingtons [id number] Shavonne Covingtons 12/14/2022 2 [place] [facility] Shavonne Ahumada [id number] Shavonne Ahumada Notes Date Note Type Note Provider Name and Address Organization Details Recorded Time 07/28/2021 text/html Patient complain s of {{itching* irritat ion discharge vagi nal odor ulcerative lesions vaginal dryness bleeding d ysuria}} that has lasted for {{1 2* 3 4 5 great er than 6}} {{days weeks* karel hs years}}. She describes her discharge as {{normal thick* th in copious clumpy} },{{normal bloody dark green yellow white*}} and is {{non-malodorous* malodorous}}. Pt {{reports denies*} } {{recent unprotected sex a new sexual relationship a history of frequent vaginal infections*}}. Pt reports following aggravating factors: {{intercourse inad equate lubrication bathin g exercise sweatin g menses OCPs noth ing*}}. She {{has* has not}} tried {{any previous treatments Difluca n Monistat* Mycolo g Terazol Metrogel antibiotics boric acid}}. They have offered {{no* mild moderat e complete}} improvement {{with without*}} recurrence. ADRIEN REED CNM [address] [facility], [place], [address], [facility] [facility] 07/28/2021 14:03:13 12/14/2022 text/html Pt said she's be en in the hospital on and off due to health issues such as heart failure, kidney stones , pneumonia, etc, upon her being treated she says they gave her a lot od antibiotics which caused her to get a yeast infection which she has been dealing with since August which brings her in today. She is having a white discharge along with itching she says the cream they gave her for it is not working. Frieda Rudolph, HOA [address] [facility], [place], [address], [facility] IV 12/14/2022 11:02:41 OBGyn Episode No OBEpisode recorded.
--- OUTSIDE RECORDS SUMMARY | 2024-07-18 15:05 | XMS_ITS | Clinical Summary ---
Author Organization [facility] [address] Address [address] [place] [address] Care Team Providers Care Finisher Plate Name Role Phone Phani Richard DO Primary Care Provider [phone] Allergies Active Allergy Reactions Criticality Noted Date [...] Diagnosed Date Resolved Date Hematuria 10/05/2022 04/12/2023 Encounters Date Type Department Care Team Description 07/08/2024 Telephone [facility] Accountable Care Organization [address] [place] [id number] Charla Stoner Unsuccessful Phone Call 1 ([facility] Med Adherence ) 06/11/2024 8:00 AM WAREHOUSE SPECIALIST Office Visit [facility] Cardiology [address] [place] [address] Zena Banegas MD Paroxysmal atrial fibrillation (HCC) (Primary Dx); Primary hypertension; Chronic anticoagulation from Last 3 Months Surgical History Surgery Date Site/Laterality Comments ROTATOR CUFF REPAIR PARTIAL HYSTERECTOMY KNEE SURGERY Left KNEE SURGERY Right NOSE SURGERY CARPAL TUNNEL RELEASE Medical History Medical History Date Comments Hypertension Diabetes mellitus (HCC) Asthma Family History Medical History Relation Name Comments Stroke Father Heart failure Mother Relation Name Status Comments Father (Age 86) Mother (Age 71) Social History Tobacco Use Types Packs/Day Years Used Date Smoking Tobacco: Never Tobacco Cessation:Counseling Given: Not Answered AUDIT-C Answer Date Recorded Q1: How often do you have a drink containing alcohol? Never 09/04/2022 Q2: How many drinks containi ng alcohol do you have on a typical day when you are drinking? Patient does not drink Q3: How often do you have si x or more drinks on one occasion? 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 SPECIALIST Gender Identity Not on file Sexual Orientation Not on file Obstetrics History Last Filed Vital Signs Vital Sign Reading Time Taken Comments Blood Pressure 118/70 06/11/2024 8:03 AM WAREHOUSE SPECIALIST Pulse 89 06/11/2024 8:03 AM WAREHOUSE SPECIALIST Temperature - - Respiratory Rate - - Oxygen Saturation 98% 06/11/2024 8:03 AM WAREHOUSE SPECIALIST Inhaled Oxygen Concentration - - Weight 86.2 kg (190 lb) 06/11/2024 8:03 AM WAREHOUSE SPECIALIST Height 160 cm (5' 3 ) 06/11/2024 8:03 AM WAREHOUSE SPECIALIST Body Mass Index 33.66 06/11/2024 8:03 AM WAREHOUSE SPECIALIST Plan of Treatment Health Maintenance Due Date Last Done Comments Breast Cancer Screening-Mammogram 1954 Colon Cancer Screening-Colonoscopy 1954 Depression Screening 1954 Fall Risk Assessment 1954 Hepatitis C Screening 1954 Osteoporosis Screening-Bone Density Scan 1954 DTaP/Tdap/Td Vaccine (1 - Tdap) 1965 Hepatitis B Screening 1972 Zoster Vaccine (1 of 2) 2004 Well Visit 65+ 07/11/2019 Covid-19 Vaccine (3 - 2023-2 5 season) 2023 08/07/2020, 2020 Influenza Vaccine (#1) 2023 , 03/14/2021, 02/03/2020, Additional history exists Pneumococcal vaccine 65+ Completed 03/19/2022, 11/28 Insurance [facility] MEDICARE ADVANTAGE IDPA [facility] MEDICARE ADVANTAGE IDPA Care Teams Finisher Plate Relationship Specialty Start Date End Date Phani Richard DO [address] [place] [address] PCP - General Internal Medicine 06/11/24
--- OUTSIDE RECORDS SUMMARY | 2024-07-18 15:05 | XMS_ITS | Clinical Summary ---
Author Organization [facility] Address [facility] [place] [address] Care Team Providers Care Sales Market Leader Name Role Phone Tray Gauthier MD Primary Care Provider [phone] Allergies No known active allergies Medications lisinopril 5 MG tablet Take 5 mg by mouth daily. Active omeprazole 20 MG capsule Take 20 mg by mouth daily. Active multivitamin tablet Take 1 tablet by mouth daily. Active Multiple Vitamins-Mineral s (HAIR SKIN AND NAILS FORMULA OR) Active APPLE JOE VN-GRN TEA-BIT OR-CR OR Act sloan CINNAMON OR Active Cholecalciferol (VITAMIN D) 1000 UNIT tablet Take 1,000 Units by mouth daily. Active vitamin C 500 MG tablet Take 500 mg by mouth daily. Active aspirin EC (ASPIRIN) 81 MG EC tablet Take 81 mg by mouth daily. Active ferrous sulfate, 65 mg elemental, 325 (65 Fe) MG tablet Take 1 tablet by mouth daily. Active albuterol sulfate HFA 108 (90 Base) MCG/ACT inhaler Inhale 2 puffs into the lungs every 6 (six) hours as needed for Wheezing. Active Family History Medical History Relation Comments Stroke Father Arthritis Mother COPD Mother Heart Disease Mother Relation Status Comments Father Mother Social History Tobacco Use Types Packs/Day Years Used Date Smoking Tobacco: Never Smokeless Tobacco: Never Alcohol Use Standard Drinks/Week Comments Yes 0 (1 standard drink = 0.6 oz pur e alcohol) rare Comments Unknown Sex and Gender Information Value Date Recorded Sex Assigned at Not on file Legal Sex Female 4:42 PM CDT Gender Identity Not on file Sexual Orientation Not on file Last Filed Vital Signs Vital Sign Reading Time Taken Comments Blood Pressure 106/66 02/20/2018 11:24 AM CDT Pulse 75 02/20/2018 11:24 AM CDT Temperature 36.4 C (97.5 F) 02/20/2018 11:24 AM CDT Respiratory Rate 17 02/20/2018 11:24 AM CDT Oxygen Saturation 98% 02/20/2018 11:24 AM CDT Inhaled Oxygen Concentration - - Weight 93 kg (205 lb) 02/17/2018 5:15 PM CDT Height 160 cm (5' 3 ) 02/17/2018 5:15 PM CDT Body Mass Index 36.31 02/17/2018 5:15 PM CDT Plan of Treatment Health Maintenance Due Date Last Done Comments Colorectal Cancer Screening Colonoscopy (10 Years) 1954 Hepatitis C 1972 DTaP, Tdap and Td Vaccines ( 1 - Tdap) 1973 Mammogram Screening 1994 Zoster Vaccines (1 of 2) 2004 Dexa Scan (General) 07/11/2019 Pneumococcal Vaccine: 65+ Ye ars (1 of 1 - PCV) 07/11/2019 COVID-19 Vaccine ( - 2023-2 5 season) 2023 Influenza Adult (#1) 2024 RSV Immunization or 60+ Years (1 - 1-dose 75+ series) 2029 Meningococcal B Vaccine Aged Out No l onger eligible based on patient's age to complete this topic Meningococcal Vaccine Aged Out No chino yissel eligible based on patient's age to complete this topic RSV Immunizations Under 20 Months Aged Out No longer eligible based on patient's age to complete this topic Insurance [employer] Care Teams Sales Market Leader Relationship Specialty Start Date End Date Tray Gauthier MD [address] [place] [address] PCP - General INTERNAL MEDICINE 02/20/18
--- OUTSIDE RECORDS SUMMARY | 2024-07-18 15:05 | XMS_ITS | Clinical Summary ---
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 Gender Identity Not on file Sexual Orientation Not on file Plan of Treatment Health Maintenance Due Date Last Done Comments DEXA Bone Density 1955 Hepatitis C Virus (HCV) Screening 1954 TdaP Immunization 1954 Colonoscopy 07/11/1999 Colorectal Cancer Screening 07/11/1999 Cologuard 2004 Immunochemical Fecal Occult Blood 2004 Mammogram 2004 Zoster Immunization (1 of 2) 2004 Pneumococcal Immunization (50+ years) (2 of 2 - PCV) 12/22/2013 12/22/2012 Influenza Immunization (#1) 12/29/202310/2019, 01/21/2019, 01/22/2017, Additional history exists SARS-COV-2 Immunization ( - 2023- season) 2023 Respiratory Syncytial Virus (RSV) Immunization (Adult) (1 - 1-dose 75+ series) 2029 Pneumococcal Immunization Combined Discontinued 12/22/2012 Hepatitis B Immunization Aged Out No longer eligible based on patient's age to complete this topic Meningococcal Immunization (ACWY) Aged Out No longer eligible based on patient's age to complete this topic Rotavirus Immunization Aged Out No lo nger eligible based on patient's age to complete this topic
--- NOTE | 2024-07-18 15:20 | ECG_ITS ---
Test Date: 2024-07-18 15:24:58 Measurements Intervals [place] Rate: 148 P: 0 [place]: 0 QRS: 9 QRSD: 89 T: -3 QT: 297 QTc: 466 Interpretive Statements ATRIAL FIBRILLATION WITH RAPID VENTRICULAR RESPONSE POSSIBLE ANTERIOR MYOCARDIAL INFARCTION , PROBABLY OLD [30 ms Q WAVE IN V3/V4, OR R < 0.2 mV IN V4] No previous ECG available for comparison Electronically Signed On 07-18-2024 17:41:07 CDT by Zena Banegas M.D.
--- NOTE | 2024-07-18 15:23 | ED_ITS ---
HPI - Dizziness General Chief Complaint: Dizziness Stated Complaint: dizziness x2 weeks, hypotension Time Seen by Provider: 07/18/24 15:17 Source: patient Mode of arrival: ambulatory Limitations: no limitations History of Present Illness HPI Narrative: Patient presents with report of dizziness that has been occurring intermittently of 2 weeks duration. When patient stands she has been experiencing these symptoms. She can't describe them quite as a lightheadedness or dysequilibrium or sense of room spinning. Not disoriented. 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 At 2:38pm today when this occurred, her heart rate was 170. She has records going back over the past several days and notes multiple times with heart rates >140, suspect afib written. When this occurred today, she checked her BP at home and it was 86/68. No ear pain or tinnitus. Does not believe she had turned her head prior to these episodes but does state that the position change of her general body seems to be correlated. No syncope. No shortness of breath. She chronically experiences palpitations. Her primary care physician Dr Richard has has been downtitrating her rate controlling medications. She had previously been on lisinopril for renal protection when she had diabetes but as her diabetes has resolved/got better she was taken off that medication. She had been on metoprolol 50mg then 25mg and around the end of April/beginning of May this was changed to 12.5mg QAM. She also sees Dr Banegas as her medical laboratory technicians. She notes drinking plenty of water daily (4 large travel containers), often a V8 in the morning and occasionally an energy drink. Her diagnosis of afib came last year when she had pneumonia and CHF and required hospitalization. She has been cardioverted x1. Regularly takes her Elliquis BID w/o missing doses. She denies any unilateral symptoms, altered mental status, slurred speech. No lower extremity edema. Related Data Home Medications ?Medication ?Instructions ?Recorded ?Confirmed ?Last Taken ?Type cholecalciferol (vitamin D3) 25 1,000 unit PO QAM 03/12/19 05/08/24 10/26/22 History mcg (1,000 unit) capsule cinnamon bark 500 mg capsule 1,000 mg PO QAM 03/12/19 05/08/24 10/26/22 History (Cinnamon) apple cider vinegar 600 mg capsule 1,200 mg PO QAM 07/07/21 05/08/24 10/26/22 History ascorbic acid 7.5 mg-vit E 7.5 1 tablet PO QAM 07/07/21 05/08/24 10/26/22 History unit-biotin 1,250 mcg chewable tablet (Hair,Skin,Nails with Biotin) zinc 50 mg tablet 50 mg PO QAM 07/07/21 05/08/24 10/26/22 History vitamin B complex (B 1 tablet PO DAILY 12/20/21 05/08/24 10/26/22 History Complex-Vitamin B12 tablet) blood sugar diagnostic (OneTouch 08/14/22 05/08/24 Unknown History Ultra Test strips) Allergies Allergy/AdvReac Type Severity Reaction Status Date / Time No Known Allergies Allergy Verified 07/18/24 15:33 [facility] Past Medical History Medical History Chronic anticoagulation URI, acute Type 2 diabetes mellitus without complications Type 2 diabetes mellitus with hyperglycemia Encounter for screening colonoscopy Encounter for PPD test Dietary counseling and surveillance (02/10/16) Chronic a-fib CAP (community acquired pneumonia) Arthritis of right hip Arthritis, lumbar spine Pneumonia Osteoarthritis of right knee Diabetes mellitus Last charted A1C 7.1 from october of 2018, Pt states her most recent A1c was 6.3 BMI 39.0-39.9,adult Seasonal allergic rhinitis Arthritis Hammertoe of right foot Hallux valgus (acquired), right foot Synovial cyst of ankle and foot region Surgical History Surgical History S/P gastric surgery S/P tonsillectomy H/O section X2 H/O foot surgery S/P gastric sleeve procedure History of arthroscopy of right knee meniscectomy 2011 History of hand surgery (~2007) Left carpal tunnel History of hysterectomy (~1996) History of knee replacement (~08/06/13) Right H/O rotator cuff surgery (~03/08/16) Right times three History of hand surgery (~1988) Right carpal tunnel Family History Family History (Updated 05/08/24 @ 07:59 by GUILHERME Coleman) Father Cerebrovascular accident Patient's father is Family history of arthritis Heart disease Hypertension Mother Family history of congestive heart failure Family history of obesity Family history of chronic obstructive pulmonary disease Family history of heart disease in male family member before age 55 Sibling Diabetes mellitus Hypertension Heart disease Other Arthritis Social History Social History Social History: The patient is . She lives with her oldest daughter who is disabled. She has 2 children. she is retired from [employer]. She is a lifelong nonsmoker. Code status full code Caffeine- energy drink Smoking status: Never smoker Second hand tobacco smoke exposure: No Additional smoking assessment comments: 2 children . 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 HEAD: Normocephalic, atraumatic. EYES: Non injected, non icteric. Horizontal extraocular movements intact. No nystagmus. ENT: Nares clear, no rhinorrhea or epistaxis. Bilateral tympanic membranes easily visualized and pearly dent. NECK: Supple. CHEST: Speaking in full sentences. No respiratory distress. HEART: IRegularly irregular rate and rhythm, variable between rate controlled and RVR ABDOMEN: Obese but Soft, nondistended. EXTREMITIES: Normal range of motion. No lower extremity edema. moves all extremities x4. SKIN: Warm, dry, no rash. NEURO: No focal deficits. Alert and oriented x3. No ataxia on finger nose finger. Speaks clearly without aphasia or dysarthria. PSYCH: Mildly anxious about her health but otherwise engaged in questions with a generally flat or straightforward affect. Course Vital Signs Vital signs: Vital Signs Temperature 98.4 F 07/18/24 15:04 Pulse Rate 73 07/18/24 15:04 Respiratory Rate 16 07/18/24 15:04 Blood Pressure 120/61 07/18/24 15:04 Pulse Oximetry 100 07/18/24 15:04 Oxygen Delivery Room Air 07/18/24 15:04 Temperature 98.4 F 07/18/24 15:04 Pulse Rate 68 07/18/24 20:22 Respiratory Rate 16 07/18/24 20:22 Blood Pressure 106/79 07/18/24 18:53 Pulse Oximetry 99 07/18/24 20:22 Oxygen Delivery Room Air 07/18/24 15:04 MDM - Dizziness MDM Narrative Medical decision making narrative: Patient presents with episodes of dizziness over the past 2 weeks, preceded by standing but not particularly head movements. In the emergency department they are afebrile with vital signs within normal limits. Patient intermittently having atrial fibrillation with rapid ventricular response. Frequent monitoring by myself and patient's nurse and metoprolol drawn up but every time attempted to give when it RVR on the monitor for >2 minutes, resolves upon approaching the bedside. Orthostats attempted and patient routinely going into afib with RVR upon standing. Troponin normal. She notes dizziness but it is positional with standing and she otherwise denies any dysarthria, altered mental status, unilateral symptoms, headache, ear pain, tinnitus. Will defer CT imaging of the brain at this time as patient gives a very clear description and with strong convincing evidence that this is cardiac in origin. 500cc fluids ordered. During orthostatics, her heart rate does elevate (afib rvr continues to be appreciated intermittently). Will given additional 500cc fluids given clear lungs. She otherwise during the ED visit remains hemodynamically stable with appropriate BP throughout, no SOB, no altered mental status, not diaphoretic. Eventually able to give metoprolol as sustains afib RVR for a long enough period while RN in room. Patient now rate controlled stably without return to RVR for >30 minutes, while awaiting urinalysis results. We extensively discussed the possibility of observation admission to continue to monitor and determine if patient might need to have a change in her rate controlling medication (i.e. from 12.5mg metoprolol QAM to perhaps BID or back to a larger dose of 25mg, etc. However, patient has good follow up with both her PCP and medical laboratory technicians and has both a cardiac monitoring device and a BP cuff at home and feels very comfortable keeping track of this data in a log and following up with her care team to discuss next steps. Declines admission at this time (also has a disabled daughter at home and is concerned about her health and safety) which is also reasonable for continuity of care and to reduce possibilty of hospital acquired infections. Patient does have evidence of urinary tract infection on urinalysis. Previous 2 urine cultures grew only Pearl but urine culture from September 2022 grew Enterococcus sensitive to ampicillin, vancomycin, and nitrofurantoin. Given first dose of Macrobid in the ED with rest of Rx. Advised not to make any changes to her antihypertensives yet. Will continue to stay hydrated. We discussed that sometimes an infection can precipitate symptoms and so that might be the cause but still recommend follow up. Patient also noted that she sometimes has an energy drink. Otherwise stable for discharge. Ambulates without difficulty of report by RN. Differential Diagnosis Differential diagnosis: Likely adverse reaction to drug, benign paroxysmal positional vertigo, orthostatic hypotension, vertebral basilar insufficiency, cerebrovascular accident, acute vestibular neuronitis, transient cerebral ischemia and other (tachydysrhthmia, bradydysrhythmia) Lab Data Attestation: I reviewed the patient's lab results. 07/18/24 15:25 07/18/24 15:25 Labs: Lab Results 07/18/24 07/18/24 Range/Units 15:25 19:02 WBC 5.8 (4.5-10.0) K/mm3 RBC 4.97 (4.2-5.4) M/mm3 Hgb 14.5 (12.0-15.0) g/dL Hct 44.9 (37.0-47.0) % MCV 90.3 (80-100) fl MCH 29.2 (26-34) pg MCHC 32.3 (32-36) g/dl RDW 13.6 (11.5-14.5) % Plt Count 217 (150-375) k/mm3 MPV 9.8 (7.4-10.4) fl Immature Gran % (Auto) 0.5 (0-0.5) % Neut % (Auto) 61.7 (45.5-73.1) % Lymph % (Auto) 21.8 (18.3-44.2) % Frontier % (Auto) 13.6 H (2.6-8.5) % Eos % (Auto) 1.7 (0-4.4) % Baso % (Auto) 0.7 (0.2-1.2) % Lymph # (Auto) 1.26 (0.9-3.2) K/mm3 Frontier # (Auto) 0.8 H (0.1-0.6) K/mm3 Eos # (Auto) 0.1 (0-0.3) K/mm3 Baso # (Auto) 0.0 (0.0-0.1) K/mm3 Abs Immat Gran (auto) 0.03 (0.00-0.031) K/mm3 Absolute Neuts (auto) 3.6 (1.3-6.7) K/mm3 Absolute Nucleated RBC 0.000 (0.0-0.012) K/mm3 Nucleated RBC % 0.0 (0.0-0.2) % PT 15.8 H (11.1-14.7) Seconds INR 1.2 APTT 31.7 (22.3-36.8) Seconds Sodium 140 (137-145) mmol/L Potassium 4.1 (3.4-5.0) mmol/L Chloride 106 (98-107) mmol/L Carbon Dioxide 22 (22-30) mmol/L Anion Gap 12 (4-12) mmol/L BUN 16 (7-17) mg/dL Creatinine 0.96 (0.7-1.0) mg/dL Estim Creat Clear Calc 49 ml/min Estimated GFR 57 L (59 - ) Glucose 116 H (65-110) mg/dL Calcium 9.4 (8.4-10.2) mg/dL Total Bilirubin 0.4 (0.2-1.3) mg/dL AST 30 (14-36) U/L ALT 25 (6-35) U/L Alkaline Phosphatase 70 (38-126) U/L Troponin I < 0.012 (0.000-0.034) ng/mL NT-Pro-B Natriuret Pep 1640 H (19.9-100) pg/mL Total Protein 7.0 (6.3-8.2) g/dL Albumin 4.3 (3.5-5.1) g/dL Lipase 62 (23-300) U/L Urine Color Yellow (Yellow) Urine Appearance Cloudy H (Clear) Urine pH 5.5 (5.0-9.0) Ur Specific [place] 1.024 (1.001-1.035) Urine Protein 1+ H (Negative) mg/dL Urine Glucose (UA) Negative (Negative) mg/dL Urine Ketones Trace H (Negative) mg/dL Ur Blood (Man) 2+ H (Negative) Urine Nitrate Positive H (Negative) Urine Bilirubin Negative (Negative) Urine Urobilinogen 0.2 (<2.0) mg/dL Add Ur Microanalysis Reviewed Leukocyte Esterase Rfl 2+ H (Negative) ROMIE/UL Urine RBC 0-2 (0-2) /hpf Urine WBC >100 H (0-3) /hpf Ur Squamous Epith Cells None seen (Few) /hpf Urine Bacteria 4+ H /hpf Urine Casts 6-10 Imaging Data Attestation: I personally reviewed and interpreted this imaging study as follows: My impression: Slight haziness in the left base but still appreciable costophrenic angle without pleural effusion. On my independent interpretation of chest x-ray Radiologist's impression: Impressions Chest X-Ray 07/18/24 17:09 IMPRESSION: No active pulmonary disease ECG Data EKG #1: Attestation: I personally reviewed and interpreted this ECG as follows: ECG completion date: 07/18/24 ECG completion time: 15:24 Interpretation: Atrial fibrillation rapid ventricular at a rate of 148 beats minute. Good R- wave progression across the precordial leads. QRS 89. QT/QTC 297/382. No T- wave inversions. Discharge Plan Discharge Clinical Impression: Atrial fibrillation with RVR, Dizziness UTI (urinary tract infection) Qualifiers: Urinary tract infection type: acute cystitis Hematuria presence: without hematuria Qualified Code(s): N30.00 - Acute cystitis without hematuria Patient Disposition: Home, Self-Care Condition: Stable Instructions: Antibiotic Form, A-fib (Atrial Fibrillation) (ED), Dizziness (ED), Urinary Tract Infection in Older Adults (ED) Additional Instructions: As we discussed, it was initially difficult to manage your afib with RVR because you kept spontaneously rate controlling. Continue keeping a log with your cardiac device and blood pressure readings and discuss with your primary care physician and medical laboratory technicians if it is recommended that you change your metoprolol dose or not. For now, continue taking your medications as prescribed. Your episodes seem to be precipitated by standing, which may reflect a slight degree of dehydration. HOwever, you did have evidence of urinary tract infection. You are given your 1st dose of antibiotic in the emergency department based on the results of a urine culture previously. The rest of the course has been prescribed. Return to the emergency department with any new or worsening symptoms. Patient Language: Yakut Prescriptions: New nitrofurantoin monohyd/m-cryst [Macrobid] 100 mg capsule 100 mg PO Q12H 5 Days Qty: 9 0RF Rx Instructions: must administer with a meal/food; already received first dose in ED 07/18 PM No Action cinnamon bark [Cinnamon] 500 mg capsule 1,000 mg PO QAM cholecalciferol (vitamin D3) 1,000 unit capsule 1,000 unit PO QAM vitamin B complex [B Complex-Vitamin B12] Tablet 1 tablet PO DAILY metoprolol succinate 25 mg tablet extended release 24 hr 12.5 mg PO DAILY Qty: 45 2RF (DME) OneTouch Ultra Test Strip MISCELLANEOUS Eliquis 5 mg Tablet 5 mg PO Q12HR Qty: 60 0RF apple cider vinegar 600 mg Capsule 1,200 mg PO QAM zinc 50 mg Tablet 50 mg PO QAM Hair, Skin, Nails with Biotin 7.5-7.5-1,250 mg-unit-mcg Tablet,Chewable 1 tablet PO QAM albuterol sulfate [Ventolin HFA] 90 mcg/actuation HFA aerosol inhaler 2 inh INHALATION Q4-6H PRN (Reason: shortness of breath or wheezing) Qty: 18 4RF budesonide 0.25 mg/2 mL suspension for nebulization See Rx Instructions .ROUTE .COMPLEX Qty: 180 0RF Dose Instruction: USE 0.25 MG IRRIGATION DAILY Patient Comments: USES PRN Rx Instructions: USE 0.25 MG IRRIGATION every other day omeprazole 20 mg capsule,delayed release(DR/EC) 20 mg PO QAM Qty: 90 3RF (DME) OneTouch Ultra Blue Test Strip Strip See Rx Instructions .ROUTE .MEDSUPPLY Qty: 175 1RF Rx Instructions: As directed- test 1-2 times daily fluticasone propionate 50 mcg/actuation spray,suspension 2 spray intranasal QAM Qty: 30 5RF semaglutide 2 mg/dose (8 mg/3 mL) pen injector 2 mg subcut WEEKLY Qty: 3 4RF Follow-up/Referrals: Zena Banegas MD [Physician] - Phani Richard DO [Primary Care Provider] - Time of Disposition: 20:02
[2024-07-18 15:31] LABS: Basophils Percent Auto 0.7 % (0.2-1.2); Eosinophils Absolute Auto 0.1 K/mm3 (0-0.3); Eosinophils Percent Auto 1.7 % (0-4.4); Hematocrit 44.9 % (37.0-47.0); Hemoglobin 14.5 g/dL (12.0-15.0); Immature Granulocyte Absolute 0.03 K/mm3 (0.00-0.031); Immature Granulocyte Percent A 0.5 % (0-0.5); Lymphocytes Absolute Auto 1.26 K/mm3 (0.9-3.2); Lymphocytes Percent Auto 21.8 % (18.3-44.2); Mean Corpuscular HGB Conc 32.3 g/dl (32-36); Mean Corpuscular Hemoglobin 29.2 pg (26-34); Mean Corpuscular Volume 90.3 fl (80-100); Mean Platelet Volume 9.8 fl (7.4-10.4); Monocytes Absolute Auto 0.8 K/mm3 (0.1-0.6); Monocytes Percent Auto 13.6 % (2.6-8.5); Neutrophils Absolute Auto 3.6 K/mm3 (1.3-6.7); Neutrophils Percent Auto 61.7 % (45.5-73.1); Platelet Count Result 217 k/mm3 (150-375); Red Blood Count 4.97 M/mm3 (4.2-5.4); Red Cell Distribution Width 13.6 % (11.5-14.5); White Blood Count 5.8 K/mm3 (4.5-10.0)
[2024-07-18 15:40] LABS: Alanine Aminotransferase 25 U/L (6-35); Albumin Level 4.3 g/dL (3.5-5.1); Alkaline Phosphatase 70 U/L (38-126); Anion Gap 12 mmol/L (4-12); Aspartate Amino Transferase 30 U/L (14-36); Bilirubin,Total 0.4 mg/dL (0.2-1.3); Blood Urea Nitrogen 16 mg/dL (7-17); Calcium 9.4 mg/dL (8.4-10.2); Carbon Dioxide 22 mmol/L (22-30); Chloride 106 mmol/L (98-107); Estimated CRCL calculation 49 ml/min; Estimated Glomerular Filt Rate 57; Glucose 116 mg/dL (65-110); Lipase 62 U/L (23-300); Potassium 4.1 mmol/L (3.4-5.0); Sodium 140 mmol/L (137-145)
[2024-07-18 15:44] LABS: INR 1.2; Partial Thromboplastin Time 31.7 Seconds (22.3-36.8); Prothrombin Time 15.8 Seconds (11.1-14.7)
[2024-07-18 15:52] LABS: Troponin I < 0.012 ng/mL (0.000-0.034)
[2024-07-18 16:20] LABS: NT Pro B Type Natriuretic Pept 1640 pg/mL (19.9-100)
--- OUTSIDE RECORDS SUMMARY | 2024-07-18 16:28 | XMS_ITS | Clinical Summary ---
Author Organization [facility] [address] Address [address] [place] [address] Care Team Providers Care Decontaminator Name Role Phone Phani Richard DO Primary Care Provider [phone] Allergies Active Allergy Reactions Criticality Noted Date [...] Type Department Care Team Description 07/08/2024 Telephone [facility] Accountable Care Organization [address] [place] [id number] Charla Stoner Unsuccessful Phone Call 1 ([facility] Med Adherence ) 06/11/2024 8:00 AM TABLE AND DESK FINISHER Office Visit [facility] Medical Group Cardiology [address] [place] [address] Zena Banegas MD Paroxysmal atrial [...] on file Legal Sex Female 12:33 PM TABLE AND DESK FINISHER Gender Identity Not on file Sexual Orientation Not on file Obstetrics History Last Filed Vital Signs Vital Sign Reading Time Taken Comments Blood Pressure 118/70 06/11/2024 8:03 AM TABLE AND DESK FINISHER Pulse 89 06/11/2024 8:03 AM TABLE AND DESK FINISHER Temperature - - Respiratory Rate - - Oxygen Saturation 98% 06/11/2024 8:03 AM TABLE AND DESK FINISHER Inhaled Oxygen Concentration - - Weight 86.2 kg (190 lb) 06/11/2024 8:03 AM TABLE AND DESK FINISHER Height 160 cm (5' 3 ) 06/11/2024 8:03 AM TABLE AND DESK FINISHER Body Mass Index 33.66 06/11/2024 8:03 AM TABLE AND DESK FINISHER Plan of Treatment Health Maintenance Due Date [...] vaccine 65+ Completed 03/19/2022, 11/28 Insurance [facility] MEDICARE ADVANTAGE IDPA [facility] MEDIC[facility] ADVANTAGE IDPA Care Teams Decontaminator Relationship Specialty Start Date End Date Phani Richard DO [address] [place] [address] PCP - General Internal Medicine 06/11/24
--- OUTSIDE RECORDS SUMMARY | 2024-07-18 16:28 | XMS_ITS | Clinical Summary ---
Author Organization [facility] Care Team Providers Care School Coordinator Name Role Phone Unavailable Primary Care Provider Unavailabl e Social History Tobacco Use Types Packs/Day Years Used Date Smoking Tobacco: Never Assessed Comments Unknown Sex and Gender Information Value Date Recorded Sex Assigned at Not on file Legal Sex Female 2:07 PM SAP PPM CONSULTANT Gender Identity Not on file Sexual Orientation [...]
--- OUTSIDE RECORDS SUMMARY | 2024-07-18 16:28 | XMS_ITS | Referral Summary ---
Author Organization [facility] [address] Address [address] [place] [address] Care Team Providers Care Application Developer Name Role Phone Phani Richard Primary Care Provider [phone] Encounters Date Type Department Care Team Description 07/08/2024 Telephone [facility] Accountable Care Organization [address] [place] [id number] Charla Stoner Unsuccessful Phone Call 1 ([facility] Med Adherence ) 06/11/2024 8:00 AM MUSIC PASTOR Office Visit [facility] Medical Group Cardiology [address] [place] [address] Zena Banegas MD Paroxysmal atrial [...] on file Legal Sex Female 12:33 PM MUSIC PASTOR Gender Identity Not on file Sexual Orientation Not on file Last Filed Vital Signs Vital Sign Reading Time Taken Comments Blood Pressure 118/70 06/11/2024 8:03 AM MUSIC PASTOR Pulse 89 06/11/2024 8:03 AM MUSIC PASTOR Temperature - - Respiratory Rate - - Oxygen Saturation 98% 06/11/2024 8:03 AM MUSIC PASTOR Inhaled Oxygen Concentration - - Weight 86.2 kg (190 lb) 06/11/2024 8:03 AM MUSIC PASTOR Height 160 cm (5' 3 ) 06/11/2024 8:03 AM MUSIC PASTOR Body Mass Index 33.66 06/11/2024 8:03 AM MUSIC PASTOR Plan of Treatment Not on file Insurance [facility] MEDICARE ADVANTAGE [facility] MEDICARE ADVANTAGE IDPA Care Teams Application Developer Relationship Specialty Start Date End Date Phani Richard DO [address] [facility] [address] [place] [address] PCP - General Internal Medicine 06/11/24
--- OUTSIDE RECORDS SUMMARY | 2024-07-18 16:28 | XMS_ITS | Clinical Summary ---
Author Organization [facility] Address [facility]ly [facility] [place] [address] Care Team Providers Care Alumni Relations Officer Name Role Phone Tray Gauthier MD Primary Care Provider [phone] Allergies No known active allergies Medications lisinopril [...] complete this topic Insurance [facility] Care Teams Alumni Relations Officer Relationship Specialty Start Date End Date Tray Gauthier MD [address] [place] [address] PCP - General INTERNAL MEDICINE 02/20/18
[2024-07-18] MEDS: SODIUM CHLORIDE 0.9% IV 500 ML 999 ML IV CONT ×2 (17:08→17:44)
[2024-07-18] MEDS: METOPROLOL TARTRATE INJ 5 MG/5 ML VIAL IV PUSH (18:43)
[2024-07-18] MEDS: LORazepam INJ (*CRX) 2 MG/ML VIAL 0.5 MG IV PUSH (19:01)
[2024-07-18 19:33] LABS: Add Urine Microscopic? YES; Appearance Urine Cloudy (Clear); Bacteria Urine 4+ /hpf; Bilirubin Urine Negative (Negative); Blood Urine 2+ (Negative); Color Urine Yellow (Yellow); Glucose Urine UA Negative (Negative); Ketones Urine Trace mg/dL (Negative); Leukocyte Esterase Ur 2+ LEU/UL (Negative); Need Manual Microscopic Reviewed; Nitrate Urine Positive (Negative); Protein Urine 1+ mg/dL (Negative); RBC Urine 0-2 /hpf (0-2); Specific Grav Ur 1.024 (1.001-1.035); Squamous Epithelial Cell Urine None Seen /hpf (Few); Urobilinogen Urine 0.2 mg/dL (<2.0); WBC Urine >100 /hpf (0-3); pH Urine 5.5 (5.0-9.0)
[2024-07-18] MEDS: NITROFURANTOIN MONOHYD MACROCR 100 MG CAP PO (19:58)
== END 2024-07-18 20:22 | disposition home or self-care (01) ==
PROVIDERS: Emergency Provider Student in an Organized Health Care Education/Training Program; PCP Internal Medicine
DX: I48.20 Chronic atrial fibrillation, unspecified (principal); N30.00 Acute cystitis without hematuria; R42 Dizziness and giddiness; E11.9 Type 2 diabetes mellitus without complications; M16.11 Unilateral primary osteoarthritis, right hip; M17.11 Unilateral primary osteoarthritis, right knee; Z98.84 Bariatric surgery status; Z96.651 Presence of right artificial knee joint; Z87.01 Personal history of pneumonia (recurrent); Z90.710 Acquired absence of both cervix and uterus; Z79.01 Long term (current) use of anticoagulants; Z79.85 Long-term (current) use of injectable non-insulin antidiabetic drugs; Z79.899 Other long term (current) drug therapy; R94.31 Abnormal electrocardiogram [ECG] [EKG]
CPT/HCPCS: 36415; 71046; 80053; 81001; 83690; 83880; 84484; 85025; 85610; 85730; 87086; 87186; 93005; 96361; 96374; 96375; 99284; A9270; J2060; J7040

== ENCOUNTER 2024-10-29 06:47 | Outpatient (CLI) | payer MEDICARE, MEDICAID, SELFPAY ==
--- OUTSIDE RECORDS SUMMARY | 2024-10-29 06:49 | XMS_ITS | Clinical Summary ---
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
--- OUTSIDE RECORDS SUMMARY | 2024-10-29 06:49 | XMS_ITS | Clinical Summary ---
Author Organization [facility] Address [facility] [place] [address] Care Team Providers Care Accounts Clerk Name Role Phone Tray Gauthier MD Primary Care Provider [phone] Allergies No known active allergies Medications lisinopril [...] 5:15 PM CDT Height 160 cm (5' 3) 02/17/2018 5:15 PM CDT Body Mass Index 36.31 02/17/2018 5:15 PM CDT Plan of Treatment Health Maintenance Due Date Last Done Comments Colorectal Cancer Screening Colonoscopy (10 Years) 1954 Hepatitis C 1972 DTaP, Tdap and Td Vaccines ( 1 - Tdap) 1973 Mammogram Screening 1994 Pneumococcal Vaccine: 50+ Ye ars (1 of 1 - PCV) 2004 Zoster Vaccines (1 of 2) 2004 Dexa Scan (General) 07/11/2019 COVID-19 Vaccine ( - 2023-2 5 season) 2023 RSV Immunization or 60+ Years (1 - 1-dose 75+ series) 2029 Meningococcal B Vaccine Aged Out No l onger eligible based on patient's age to complete this topic Meningococcal Vaccine Aged Out No chino yissel eligible based on patient's age to complete this topic RSV Immunizations Under 20 Months Aged Out No longer eligible based on patient's age to complete this topic Insurance Care Teams Accounts Clerk Relationship Specialty Start Date End Date Tray Gauthier MD [address] [place] [address] PCP - General INTERNAL MEDICINE 02/20/18
--- OUTSIDE RECORDS SUMMARY | 2024-10-29 06:49 | XMS_ITS | Referral Summary ---
Author Organization [facility] [address] Address [address] [place] [address] Care Team Providers Care Mental Health Counselor Name Role Phone Phani Richard DO Primary Care Provider [phone] Encounters Date Type Department Care Team Description 08/13/2024 Telephone [facility] Accountable Care Organization [address] [place] [id number] Hannah Teresa MA Chart Review ([facility] med adh) from Last 3 Months Allergies Active Allergy [...] 2 (two) times a day 3 Active metoprolol XL (TOPROL-XL) 50 mg extended release tablet TAKE 1 TABLET(50 MG) BY MOUTH DAILY 90 tablet 3 4 Active Additional Information Patient taking differently: 12.5 mgoral Daily, Reported on 06/11/2024 acidophilus-pec tin, citrus 100 million cell-10 mg capsule Take by mouth Activ e glucosam-chondr oitin-diet cb25 116-100 mg capsule Take by mouth Active Eliquis 5 mg tablet TAKE 1 TABLET(5 MG) BY MOUTH EVERY 12 HOURS 60 tablet 11 5 Active Active Problems Problem Noted Date Diagnosed [...] on file 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 Gender Identity Not on file Sexual Orientation Not on file Last Filed Vital Signs Vital Sign Reading Time Taken Comments Blood Pressure 118/70 06/11/2024 8:03 AM [employer] WORKER Pulse 89 06/11/2024 8:03 AM [employer] WORKER Temperature - - Respiratory Rate - - Oxygen Saturation 98% 06/11/2024 8:03 AM [employer] WORKER Inhaled Oxygen Concentration - - Weight 86.2 kg (190 lb) 06/11/2024 8:03 AM [employer] WORKER Height 160 cm (5' 3) 06/11/2024 8:03 AM [employer] WORKER Body Mass Index 33.66 06/11/2024 8:03 AM [employer] WORKER Plan of Treatment Not on file Insurance [facility] MEDICARE ADVANTAGE IDPA [facility] MEDIC[employer] ADVANTAGE IDPA Care Teams Mental Health Counselor Relationship Specialty Start Date End Date Phani Richard DO [address] [facility] [address] [place] [address] PCP - General Internal Medicine 06/11/24
--- OUTSIDE RECORDS SUMMARY | 2024-10-29 06:49 | XMS_ITS | Clinical Summary ---
Author Organization [facility] [address] Address [address] [place] [address] Care Team Providers Care Replenishment Associate Name Role Phone Phani Richard DO Primary Care Provider [phone] Allergies Active Allergy Reactions Criticality Noted Date [...] Type Department Care Team Description 08/13/2024 Telephone [facility] Accountable Care Organization [address] [place], [place] [id number] Hannah Teresa MA Chart Review ([facility]) from Last 3 Months Surgical History Surgery [...] you are drinking? Patient does not drink 3 Q3: How often do you have si x or more drinks on one occasion? 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 Gender Identity Not on file Sexual Orientation Not on file Obstetrics History Last Filed Vital Signs Vital Sign Reading Time Taken Comments Blood Pressure 118/70 06/11/2024 8:03 AM BUILDING CONSTRUCTION ESTIMATOR Pulse 89 06/11/2024 8:03 AM BUILDING CONSTRUCTION ESTIMATOR Temperature - - Respiratory Rate - - Oxygen Saturation 98% 06/11/2024 8:03 AM BUILDING CONSTRUCTION ESTIMATOR Inhaled Oxygen Concentration - - Weight 86.2 kg (190 lb) 06/11/2024 8:03 AM BUILDING CONSTRUCTION ESTIMATOR Height 160 cm (5' 3) 06/11/2024 8:03 AM BUILDING CONSTRUCTION ESTIMATOR Body Mass Index 33.66 06/11/2024 8:03 AM BUILDING CONSTRUCTION ESTIMATOR Plan of Treatment Health Maintenance Due Date [...] season) 2023 08/07/2020, 2020 Influenza Vaccine (#1) 2024 , 03/14/2021, 02/03/2020, Additional history exists Pneumococcal vaccine 65+ Completed 03/19/2022, 11/28 Insurance [facility] MEDICARE ADVANTAGE IDPA [facility] MEDIC[employer] ADVANTAGE IDPA Care Teams Replenishment Associate Relationship Specialty Start Date End Date Phani Richard DO [address] [address] PCP - General Internal Medicine 06/11/24
[2024-10-29 07:36] LABS: Alanine Aminotransferase 22 U/L (6-35); Albumin Level 3.8 g/dL (3.5-5.1); Alkaline Phosphatase 58 U/L (38-126); Anion Gap 7 mmol/L (4-12); Aspartate Amino Transferase 27 U/L (14-36); Bilirubin,Total 0.4 mg/dL (0.2-1.3); Blood Urea Nitrogen 17 mg/dL (7-17); Calcium 9.2 mg/dL (8.4-10.2); Carbon Dioxide 27 mmol/L (22-30); Chloride 106 mmol/L (98-107); Cholesterol 192 mg/dL (0-200); Estimated Glomerular Filt Rate > 60; Glucose 120 mg/dL (65-110); HDL Direct 67 mg/dL; Potassium 3.8 mmol/L (3.4-5.0); Sodium 140 mmol/L (137-145); Total Protein 6.6 g/dL (6.3-8.2); Triglycerides 167 mg/dL (<150)
[2024-10-29 08:03] LABS: Hemoglobin A1C 5.5 % (<5.7)
[2024-10-29 08:07] LABS: Thyroid Stimulating Hormone 2.470 uIU/mL (0.465-4.680)
== END 2024-10-29 06:48 | disposition home or self-care (01) ==
PROVIDERS: PCP Internal Medicine; Visit Provider Internal Medicine
DX: E78.5 Hyperlipidemia, unspecified (principal); E11.69 Type 2 diabetes mellitus with other specified complication; I11.0 Hypertensive heart disease with heart failure; I50.9 Heart failure, unspecified; E55.9 Vitamin D deficiency, unspecified; R53.83 Other fatigue
CPT/HCPCS: 36415; 80053; 80061; 82306; 83036; 84443